=== PATIENT | female | born 1945 | race Caucasian/White ===

== ENCOUNTER 2020-04-19 15:46 | Inpatient (IN) | payer MEDICARE, OTHER ==
[~2020-04-19] VITALS: Ht 167.6 cm; Wt 106.1 kg
[2020-04-19 16:20] LABS: BASOPHILS # (AUTO) 0.1 /CMM (0.0-0.2); BASOPHILS % (AUTO) 0.6 % (0.0-2.0); EOSINOPHILS % (AUTO) 7.7 % (0.0-6.0); HEMATOCRIT 33 % (33-45); HEMOGLOBIN 10.4 g/dL (11.5-14.8); LYMPHOCYTES # (AUTO) 0.4 /CMM (0.8-4.8); LYMPHOCYTES % (AUTO) 4.3 % (20.0-44.0); MEAN CORPUSCULAR HGB CONC 31 g/dl (31.0-36.0); MEAN CORPUSCULAR VOLUME 118 fL (82-100); MONOCYTES # (AUTO) 0.6 /CMM (0.1-1.30); MONOCYTES % (AUTO) 6.1 % (2.0-12.0); NEUTROPHILS # (AUTO) 7.5 /CMM (1.8-8.9); NEUTROPHILS % (AUTO) 81.3 % (43.0-81.0); PLATELET COUNT (AUTO) 225 /CMM (150-450); RED BLOOD CELL COUNT(AUTO) 2.82 MIL/uL (4.0-5.2); WHITE BLOOD COUNT (AUTO) 9.3 K/uL (4.3-11.0)
--- NOTE | 2020-04-19 16:24 | NUR ---
PT [facility] WITH [facility] C/O LOW BP. PT WAS TRIAGED AND TAKEN TO ROOM #5. RT IS AT THE BEDSIDE. PT HAS A TRACH (SHILEY 6) AND IS VENTED. PT WAS PLACED ON A VENT WITH THE FOLLOWING SETTINGS: AC12, TV550, FIO2 40%, PEEP 5. PT IS AA&O BUT IS UNABLE TO TALK. PT NODS TO YES AND NO QUESTIONS. RADHA CATH IN RUC AND GTUBE NOTED. BILATERAL FOOT DROP. DRY SKIN NOTED ON BILATERAL FEET.
[2020-04-19 16:33] LABS: CALCIUM, SERUM 8.8 mg/dL (8.5-10.1); CARBON DIOXIDE 28 mmol/L (21-32); CHLORIDE 103 mmol/L (98-107); CREATININE 2.2 mg/dL (0.6-1.3); GLUCOSE 98 mg/dL (74-106); POTASSIUM 5.9 mmol/L (3.5-5.1); SODIUM SERUM 137 mmol/L (136-145); UREA NITROGEN, BLOOD 48 mg/dL (7-18)
[2020-04-19 16:44] LABS: ALANINE AMINOTRANSFERASE 9 U/L (12-78); ALKALINE PHOSPHATASE 108 U/L (46-116); ASPARTATE AMINOTRANSFERASE 17 U/L (15-37); BILIRUBIN,DIRECT 0.2 mg/dL (0.0-0.2); BILIRUBIN,TOTAL 0.4 mg/dL (0.2-1.0)
--- NOTE | 2020-04-19 16:53 | NUR ---
CALLING [facility] FOR PT INFORMATION. PER ADITI AT [facility], PT CAME TO THEM BY PRIVATE AMBULANCE AND WAS NOT ACCEPTED DUE TO LOW BP. INVESTIGATOR WELFARE: DR VALLADARES WHAT FACILITY IS PT FROM: [facility]
--- NOTE | 2020-04-19 16:57 | NUR ---
CALLING [employer] JENNIFER WRIGHT . SPOKE TO SIGN WRITER LETTERER OR PAINTER: RM DOCUMENTS ARE BEING FAXED OVER.
--- NOTE | 2020-04-19 17:01 | NUR ---
CALLED OFFICE OF DR NESS, BUFFET SERVER PAGED
--- NOTE | 2020-04-19 17:07 | NUR ---
DR TYLER SPOKE TO DR VALLADARES RE: PT. PT TO BE ADMITTED FOR HD.
[2020-04-19 17:15] LABS: NEUTROPHILS % (MANUAL) 76 (42-76)
[2020-04-19 17:16] LABS: EOSINOPHILS % (MANUAL) 10 % (0-4); LYMPHOCYTES % (MANUAL) 9 % (16-48); MONOCYTES % (MANUAL) 5 % (0-11.0)
--- NOTE | 2020-04-19 17:25 | NUR ---
CALLED SECURITY RE: PT'S CAR IS PARKED IN THE HANDICAPPED SPACE IN FRONT OF THE HOSPITAL.
--- NOTE | 2020-04-19 17:51 | NUR ---
CALLING RM RYDER, SHELL MOLD BONDER AT [facility], TO LET HER KNOW THAT THE PT WILL BE STAYING.
--- NOTE | 2020-04-19 17:52 | NUR ---
epic paged, requested for a tele bed
[2020-04-19] MEDS ORDERED: DEXTROSE 50%-WATER 50 ML DISP.SYRIN ONE (18:00)
[2020-04-19] MEDS ORDERED: SODIUM BICARBONATE SYR 50 MEQ/50 ML DISP.SYRIN IV ONE (18:00)
[2020-04-19] MEDS ORDERED: INSULIN REGULAR, HUMAN 100 UNIT/ML 10 ML VIAL ONE (18:00)
[2020-04-19] MEDS ORDERED: INSULIN REGULAR, HUMAN 100 UNIT/ML 10 ML VIAL IV ONE (18:00)
[2020-04-19] MEDS ORDERED: SODIUM BICARBONATE SYR 50 MEQ/50 ML DISP.SYRIN ONE (18:00)
[2020-04-19] MEDS ORDERED: DEXTROSE 50%-WATER 50 ML DISP.SYRIN IV ONE (18:00)
--- NOTE | 2020-04-19 18:07 | NUR ---
JENNIFER STROUD RN, CALLED RE: WHERE PT IS GOING. HE WILL CALL BACK IN 15 MINS FOR AN UPDATE.
--- NOTE | 2020-04-19 18:08 | NUR ---
DR ARCEO IS SPEAKING TO DR TYLER RE: ADMISSION.
--- NOTE | 2020-04-19 18:08 | NUR ---
Anne Marie treadwell in [facility] - 04/19/20 at [email or web address] ARCEO IS ON THE PHONE WITH DR. TYLER FOR ADMITION.
[2020-04-19] MEDS ORDERED: MAGNESIUM HYDROXIDE 30 ML UDC PO PRN (18:30)
[2020-04-19] MEDS ORDERED: ONDANSETRON HCL/PF 4 MG/2 ML VIAL IVP PRN (18:30)
[2020-04-19] MEDS ORDERED: MAG HYDROX/AL HYDROX/SIMETH 30 ML UDC PO PRN (18:30)
[2020-04-19] MEDS ORDERED: ACETAMINOPHEN 325 MG TABLET PO PRN (18:30)
--- NOTE | 2020-04-19 18:30 | NUR ---
CALLING REPORT TO SIMONIZER.
--- NOTE | 2020-04-19 18:32 | NUR ---
WILL CALL BACK IN 5 MINS.
[2020-04-19] MEDS ORDERED: ARGI1POW13 GT (18:34)
[2020-04-19] MEDS ORDERED: LORA-259 PO (18:34)
[2020-04-19] MEDS ORDERED: MULT-447 GT (18:34)
[2020-04-19] MEDS ORDERED: ACET325T53 GT (18:34)
[2020-04-19] MEDS ORDERED: IPRA12.9 IH ×2 (18:34→18:43)
[2020-04-19] MEDS ORDERED: MELA1TAB27 GT (18:34)
[2020-04-19] MEDS ORDERED: NUTR250L62 (18:34)
[2020-04-19] MEDS ORDERED: METO-295 GT (18:34)
[2020-04-19] MEDS ORDERED: DIPH25TA62 GT (18:34)
[2020-04-19] MEDS ORDERED: ASCO-373 GT (18:34)
[2020-04-19] MEDS ORDERED: HYDR-4384 GT ×2 (18:34→18:43)
[2020-04-19] MEDS ORDERED: AMIO200T4 PO (18:34)
[2020-04-19] MEDS ORDERED: HYDROCORTISONE GT (18:34)
[2020-04-19] MEDS ORDERED: CITA10TA9 GT (18:34)
[2020-04-19] MEDS ORDERED: LACT10SO GT (18:34)
[2020-04-19] MEDS ORDERED: [UNRECOGNIZED DRUG - CODE] GT (18:34)
[2020-04-19] MEDS ORDERED: ERYT400S8 GT (18:34)
[2020-04-19] MEDS ORDERED: HYDROCORTISONE TAB PO (18:34)
[2020-04-19] MEDS ORDERED: ROBINUL GT (18:43)
[2020-04-19] MEDS ORDERED: AMIN887L GT (18:43)
[2020-04-19] MEDS ORDERED: GLYC2TAB21 PO (18:43)
[2020-04-19] MEDS ORDERED: BUDE180A IH (18:43)
[2020-04-19] MEDS ORDERED: OMEP20TA5 GT (18:43)
[2020-04-19] MEDS ORDERED: LEVO100T GT (18:43)
[2020-04-19] MEDS ORDERED: ONDA4TAB5 GT (18:43)
[2020-04-19] MEDS ORDERED: LEVA15HF4 IH (18:43)
[2020-04-19] MEDS ORDERED: NAPH1POW3 GT (18:43)
--- NOTE | 2020-04-19 18:44 | NUR ---
CALLING REPORT KB AZAR
--- NOTE | 2020-04-19 18:49 | NUR ---
CALLED RT RE: TRANSPORT TO [facility].
[2020-04-19 20:00] VITALS: BP 92/53
--- NOTE | 2020-04-19 20:17 | NUR ---
MS/TELE/RN RECEIVED PATIENT FROM [facility] AT AROUND [address] [employer]IA [employer]. PATIENT APPEAR SLEEPING, APPEAR COMFORTABLE, ON MECHANICAL VENTILATOR WHICH WAS SET UP BY RT IN THE ROOM, NO SIGNS OF DISTRESS NOTED, PLACED CALL LIGHT WITHIN REACH. DIALYSIS IS IN PROGRESS AT THIS TIME. WILL DO ADMISSION POST DIALYSIS.
--- NOTE | 2020-04-19 22:01 | NUR ---
MS/TELE/RN CALLED AND SPOKE TO DR. ARCEO DIET ORDER AND HAVE THE MEDS RECONCILED. ORDER RECEIVED.
[2020-04-19] MEDS ORDERED: TWOCAL HN 1,000 ML LIQUID GT PRN (22:30)
--- NOTE | 2020-04-19 23:17 | NUR ---
MS/TELE/RN TWOCAL FEEDING FORMULA IS NOT AVAILABLE, OBTAINED AN ORDER FROM DR. ARCEO TO CHANGE IT TO NEPRO @ 55 MLS/HR X 16 HOURS.
[2020-04-19] MEDS: NEPRO 1,000 ML BOTTLE GT PRN (23:40)
[2020-04-20] VITALS: BP 101/46
[2020-04-20] MEDS ORDERED: ACETAMINOPHEN 325 MG TABLET MC PRN
[2020-04-20] MEDS ORDERED: Medication Not On Formulary EA (Melatonin/Pyridoxine HCl (B6) (Melatonin 3 mg Tablet) 1 GT PRN
[2020-04-20] MEDS ORDERED: ONDANSETRON 4 MG TAB.RAPDIS GT PRN (00:30)
[2020-04-20] MEDS: HYDROCODONE/APAP 5/325MG 1 EACH TABLET GT PRN ×3 (01:30→20:31)
[2020-04-20] MEDS: IPRATROPIUM NEB FS 0.5 MG/2.5 ML AMPUL.NEB NEB SCH ×3 (01:30→19:30)
--- NOTE | 2020-04-20 03:25 | NUR ---
RT NOTE Pt rec'd trached on [facility] vent on AC mode. Pt showed no signs of resp distress or sob. Pt awake and alert. Pt sx'd for thick mod amt of pale yellow secretions. Alarms are set and audible. Vent plugged into red outlet. Ambu bag bedside. Will continue to monitor closely. Addendum: 04/20/20 at 0327 by YANELI NUÑEZ RT Amended: Links added.
--- NOTE | 2020-04-20 06:17 | NUR ---
MS/TELE/RN PATIENT IS STILL SLEEPING AT THIS TIME, APPEAR COMFORTABLE, NO SIGNS OF DISTRESS NOTED, MECH VENT WORKING WELL, PATIENT SLEPT GOOD THE WHOLE SHIFT, HOB ELEVATED, ALL NEEDS ATTENDED AT THIS TIME, WILL CONTINUE TO MONITOR.
[2020-04-20 06:37] LABS: BASOPHILS % (AUTO) 0.6 % (0.0-2.0); HEMATOCRIT 33 % (33-45); HEMOGLOBIN 10.4 g/dL (11.5-14.8); LYMPHOCYTES % (AUTO) 14.1 % (20.0-44.0); MEAN CORPUSCULAR HGB CONC 32 g/dl (31.0-36.0); MEAN CORPUSCULAR VOLUME 117 fL (82-100); MONOCYTES # (AUTO) 0.7 /CMM (0.1-1.30); MONOCYTES % (AUTO) 9.5 % (2.0-12.0); NEUTROPHILS # (AUTO) 4.3 /CMM (1.8-8.9); NEUTROPHILS % (AUTO) 61.8 % (43.0-81.0); PLATELET COUNT (AUTO) 189 /CMM (150-450); RED BLOOD CELL COUNT(AUTO) 2.77 MIL/uL (4.0-5.2)
--- NOTE | 2020-04-20 07:30 | NUR ---
TEXTILE CUTTING MACHINE OPERATOR OPENING NOTE Received patient in bed, A&O x 2. Breathing even and non-labored, tolerating vent settings well; Shiley 6, AC 12, TV 550, FiO2 40%, PEEP 5. Patient denies any pain/discomfort at this time. On tele monitor, reading SR with PACs. R/O COVID-19. IV access noted in R hand #20g, patent, intact, and flushing well. G-tube in place, Nepro running @ 55 mLs/hr. Sensation from all peripheral extremities intact. Fall precautions maintained. Will continue current medical management.
[2020-04-20 07:43] LABS: CALCIUM, SERUM 8.6 mg/dL (8.5-10.1); CARBON DIOXIDE 27 mmol/L (21-32); CHLORIDE 102 mmol/L (98-107); GLUCOSE 83 mg/dL (74-106); POTASSIUM 4.5 mmol/L (3.5-5.1); SODIUM SERUM 137 mmol/L (136-145); UREA NITROGEN, BLOOD 40 mg/dL (7-18)
[2020-04-20 08:00] VITALS: BP 113/67
[2020-04-20] MEDS: ASCORBIC ACID 500 MG TABLET GT SCH (08:17)
[2020-04-20] MEDS: LACTULOSE 10 G/15 ML UDC (PYXIS) GT SCH ×2 (08:17→16:16)
[2020-04-20] MEDS: GLYCOPYRROLATE 1 MG TABLET GT SCH ×3 (08:18→16:16)
[2020-04-20] MEDS: PANTOPRAZOLE 40 MG/PACK PACK GT SCH (08:18)
[2020-04-20] MEDS: CITALOPRAM HYDROBROMIDE 10 MG TABLET GT SCH (08:18)
[2020-04-20] MEDS: MULTIVITAMINS,THERAGRAN 1 UDTAB TABLET GT SCH (08:18)
[2020-04-20] MEDS: METOCLOPRAMIDE HCL 10 MG TABLET GT SCH ×3 (08:18→16:17)
[2020-04-20] MEDS: AMIODARONE HCL 200 MG TABLET PO SCH ×2 (08:19→16:40)
[2020-04-20] MEDS: PROSOURCE / PROSTAT (PYXIS) 30 ML UDC GT SCH ×3 (08:20→16:45)
[2020-04-20] MEDS: CALCIUM POLYCARBOPHIL 625 MG TABLET GT SCH ×2 (08:22→16:42)
[2020-04-20] MEDS: Z GUARD REMEDY 2 OZ OINT TP PRN (08:23)
[2020-04-20] MEDS: LEVOTHYROXINE SODIUM 100 MCG TABLET GT SCH (08:24)
[2020-04-20] MEDS: HYDROCORTISONE 5 MG TABLET GT SCH ×2 (08:49→17:08)
--- NOTE | 2020-04-20 08:59 | NUR ---
RT NOTE PT RCVD TRACH'D ON MECHANICAL VENT WITH CHARTED SETTINGS. SX DONE. PT TRACH IS PATENT AND SECURE. VENT PLUGGED INTO RED OUTLET. VENT ALARMS ARE ON AND AUDIBLE. AMBU BAG AT BED SIDE. NO SOB NOTED. Addendum: 04/20/20 at 0859 by ALAN HOWELL RT Amended: Links added.
[2020-04-20] MEDS ORDERED: Medication Not On Formulary EA (Arginine/Ascorbate Sod/Vite AC (Arginaid Powder) 1 EACH) GT SCH (09:00)
[2020-04-20] MEDS ORDERED: Medication Not On Formulary EA (Levalbuterol Tartrate (Xopenex Hfa) 2 PUFF) IH SCH (09:00)
--- NOTE | 2020-04-20 09:46 | NUR ---
WOUND CARE CONSULT: REVIEWED CHART, NURSING DOCUMETATION AND PHOTOS WHICH SHOW SACRAL AND LEFT BUTTOCK WOUNDS, AT LEAST PARTIAL THICKNESS WELL RASHES TO BREASTFOLDS, ABDOMINAL/GROIN FOLDS AND PERINEUM, PRESENT ON ADMISSION. RECOMMENDATIONS MADE FOR SKIN PROTECTION AND WOUND CARE. DISCUSSED WITH NURSING STAFF. FIRST STEP LOW AIRLOSS MATTRESS ON ORDER. WILL SEE PRN. IN AGREEMENT WITH PLAN OF CARE. CURRENT [facility]AS SCORE IS 10.
[2020-04-20] MEDS ORDERED: IPRATROPIUM BROMIDE 14 GM INHALER (or 12.9 GM) IH SCH ×2 (12:00→17:11)
[2020-04-20] MEDS: ERYTHROMYCIN ETHYLSUCCINATE 200 MG/5 ML SUSPENSION GT SCH ×2 (13:09→17:07)
[2020-04-20] MEDS: HYDROGEL DRESSING 90 GM TUBE TP SCH (13:13)
[2020-04-20] MEDS: NEUTRA PHOS 1 POWD.PACKET GT SCH ×2 (13:37→16:16)
[2020-04-20] MEDS: LORAZEPAM 1 MG TABLET PO PRN ×2 (13:47→23:06)
[2020-04-20 16:00] VITALS: BP 130/66
[2020-04-20] MEDS: CLOTRIMAZOLE 1% 15 GM TUBE TP SCH (16:41)
--- NOTE | 2020-04-20 18:12 | NUR ---
TELE/RN CLOSING NOTES Patient in bed, A&O x3, VSS, remains afebrile. Tolerating vent settings well, saturating at 100%. Breathing even and non-labored. On tele monitor, reading SR with 1st degree AV block, HR 67. Patient denies any pain/discomfort at this time, last norco given at 1126. IV access noted on the right hand #20g, patent, intact, and flushing well. G-tube in place, patent and intact. Feeding was turned off at 1600, as ordered. Sensation from all peripheral extremities intact. Fall precautions maintained. Will endorse to shift leader nurse.
[2020-04-20] MEDS ORDERED: BUDESONIDE RESPULE INH 0.5 MG/2 ML AMPUL.NEB IH SCH (19:30)
[2020-04-20] MEDS: ALBUTEROL FS 2.5 MG/3 ML VIAL.NEB NEB SCH (19:30)
--- NOTE | 2020-04-20 19:30 | NUR ---
MS/TELE/RN PATIENT AWAKE, ALERT, ORIENTED, COMFORTABLE, NO SIGNS OF DISTRESS NOTED, ON [facility] VENTILATOR, CALL LIGHT IN REACH. WILL MONITOR.
[2020-04-20 20:28] VITALS: BP 119/61
--- NOTE | 2020-04-20 21:09 | NUR ---
RT NOTE PT RECEIVED TRACHED ON MECHANICAL VENTILATION. AWAKE/ALERT. CUFF CHECKED VIA SOLAR PANEL TECHNICIAN. NEB TX NOT GIVEN DUE TO PENDING LAB RESULTS. NO DISTRESS NOTED AT THIS TIME. INNER CANNULA CHANGED. NURSE, NED, AWARE. WILL CONTINUE TO MONITOR T/O SHIFT. Addendum: 04/20/20 at 2110 by CARMELO BOBO RT Amended: Links added.
--- NOTE | 2020-04-20 23:14 | NUR ---
MS/TELE/RN PATIENT IS VERY ANXIOUS, ATIVAN WAS GIVEN GT ORDERED. WILL MONITOR.
[2020-04-21] VITALS: BP 111/56
[2020-04-21] MEDS: NEPRO 1,000 ML BOTTLE GT PRN (01:09)
[2020-04-21] MEDS: IPRATROPIUM NEB FS 0.5 MG/2.5 ML AMPUL.NEB NEB SCH ×4 (01:15→19:30)
[2020-04-21] MEDS: ALBUTEROL FS 2.5 MG/3 ML VIAL.NEB NEB SCH ×4 (01:15→19:30)
--- NOTE | 2020-04-21 01:15 | NUR ---
RT tx not given due to pending lab results,. notified monserrat diaz
[2020-04-21] MEDS: HYDROCODONE/APAP 5/325MG 1 EACH TABLET GT PRN ×3 (01:48→22:46)
[2020-04-21 04:00] VITALS: BP 109/60
[2020-04-21] MEDS: LORAZEPAM 1 MG TABLET PO PRN ×3 (04:28→23:30)
--- NOTE | 2020-04-21 04:43 | NUR ---
MS/TELE/RN PATIENT IS ANXIOUS, ATIVAN WAS GIVEN GT PER PATIENT'S REQUEST. WILL MONITOR.
--- NOTE | 2020-04-21 06:18 | NUR ---
MS/TELE/RN DR. ARCEO WAS NOTIFIED RE: BLOOD CULTURE RESULT. NO ORDERS RECEIVED.
[2020-04-21] MEDS: LEVOTHYROXINE SODIUM 100 MCG TABLET GT SCH (07:08)
--- NOTE | 2020-04-21 07:10 | NUR ---
Rn opening note: Received patient in bed. Asleep and arousable by sound. Alert, oriented x4. Able to make needs known. No pain reported and is currently comfortable. On mechanical ventilation on current settings and tolerating well, saturating @100%. No SOB and not in respiratory distress. Tele monitor showing sinus rhythm @ 61. Isolation precautions in place to R/O covid. Gtube patent and in place with current feeding of Nepro @ 55mls/hr x18hr being tolerated well. Iv site clean, dry, patent and intact. HD site access clean, dry and secure. Received report about patient concerns to be address by provider and will report it on shift. call light in reach. Bed locked, low and at semi-moody's position. Side rails up x3. Safety ensured and observed. Will continue to monitor.
--- NOTE | 2020-04-21 07:18 | NUR ---
MS/TELE/RN PATIENT IS AWAKE, COMFORTABLE, NO DISTRESS NOTED, HOB ELEVATED, GT FEEDING INFUSING, ALL NEEDS ATTENDED AT THIS TIME, WILL CONTINUE TO MONITOR.
[2020-04-21 08:00] VITALS: BP 141/66
--- NOTE | 2020-04-21 08:15 | NUR ---
RN note: Informed Todd Conner DNP about gabriela's request to see a provider, request to be able to get clear liquids as she stated that she was able to get it when she was staying in the care home and to convert current Albuterol and Ipatropium NEB to INH. Todd acknowledged information and will see patient when he makes his morning rounds.
[2020-04-21] MEDS: ASCORBIC ACID 500 MG TABLET GT SCH (08:38)
[2020-04-21] MEDS: MULTIVITAMINS,THERAGRAN 1 UDTAB TABLET GT SCH (08:38)
[2020-04-21] MEDS: GLYCOPYRROLATE 1 MG TABLET GT SCH ×3 (08:38→16:38)
[2020-04-21] MEDS: LACTULOSE 10 G/15 ML UDC (PYXIS) GT SCH ×2 (08:39→16:35)
[2020-04-21] MEDS: CITALOPRAM HYDROBROMIDE 10 MG TABLET GT SCH (08:39)
[2020-04-21] MEDS: METOCLOPRAMIDE HCL 10 MG TABLET GT SCH ×3 (08:39→16:37)
[2020-04-21] MEDS: AMIODARONE HCL 200 MG TABLET PO SCH ×2 (08:39→16:35)
[2020-04-21] MEDS: PANTOPRAZOLE 40 MG/PACK PACK GT SCH (08:39)
[2020-04-21] MEDS: NEUTRA PHOS 1 POWD.PACKET GT SCH ×3 (08:39→16:35)
[2020-04-21] MEDS: PROSOURCE / PROSTAT (PYXIS) 30 ML UDC GT SCH ×3 (08:40→16:39)
[2020-04-21] MEDS: HYDROCORTISONE 5 MG TABLET GT SCH ×2 (08:50→17:38)
[2020-04-21] MEDS: CALCIUM POLYCARBOPHIL 625 MG TABLET GT SCH ×2 (08:50→16:37)
[2020-04-21] MEDS: CLOTRIMAZOLE 1% 15 GM TUBE TP SCH ×2 (08:51→16:39)
[2020-04-21] MEDS: ERYTHROMYCIN ETHYLSUCCINATE 200 MG/5 ML SUSPENSION GT SCH ×3 (08:51→16:37)
[2020-04-21] MEDS: HYDROGEL DRESSING 90 GM TUBE TP SCH (09:00)
[2020-04-21 11:00] LABS: BASOPHILS % (AUTO) 0.5 % (0.0-2.0); EOSINOPHILS % (AUTO) 15.3 % (0.0-6.0); HEMATOCRIT 37 % (33-45); HEMOGLOBIN 11.3 g/dL (11.5-14.8); LYMPHOCYTES # (AUTO) 0.8 /CMM (0.8-4.8); LYMPHOCYTES % (AUTO) 10.3 % (20.0-44.0); MEAN CORPUSCULAR HGB CONC 31 g/dl (31.0-36.0); MEAN CORPUSCULAR VOLUME 119 fL (82-100); MONOCYTES # (AUTO) 0.6 /CMM (0.1-1.30); MONOCYTES % (AUTO) 7.8 % (2.0-12.0); NEUTROPHILS # (AUTO) 4.9 /CMM (1.8-8.9); NEUTROPHILS % (AUTO) 66.1 % (43.0-81.0); PLATELET COUNT (AUTO) 201 /CMM (150-450); RED BLOOD CELL COUNT(AUTO) 3.07 MIL/uL (4.0-5.2); WHITE BLOOD COUNT (AUTO) 7.4 K/uL (4.3-11.0)
[2020-04-21 11:29] LABS: CARBON DIOXIDE 30 mmol/L (21-32); CHLORIDE 104 mmol/L (98-107); CREATININE 2.2 mg/dL (0.6-1.3); GLUCOSE 101 mg/dL (74-106); POTASSIUM 4.1 mmol/L (3.5-5.1); SODIUM SERUM 141 mmol/L (136-145); UREA NITROGEN, BLOOD 39 mg/dL (7-18)
[2020-04-21 12:00] VITALS: BP 108/40
[2020-04-21] MEDS ORDERED: FEE PK DOSING 1 MIN EA MC ONE (12:37)
[2020-04-21] MEDS ORDERED: VANCOMYCIN 1 GM in IV D5W 250 ML IV ONE (13:00)
[2020-04-21 15:37] VITALS: BP 116/58
--- NOTE | 2020-04-21 19:13 | NUR ---
RN OPENING NOTE RECEIVED PT IN BED IN SEMI- FOWLERS POSITION. PT A/O X 4, ON TELE MONITOR SR. PT ON RA SATURATING AT 99%. PT IN NO DISTRESS. PT TOLERATING CURRENT VENT SETTINGS. RT CHEST PERMA CATH PATENT AND INTACT. IV TO RT HAND PATENT AND INTACT FLUSHING WELL. CALL LIGHT WITHIN REACH, SIDE RAILS UP X 2 WILL CONT. TO MONITOR PT .
--- NOTE | 2020-04-21 19:20 | NUR ---
RN closing note: No acute changes noted on shift. Patient was seen by Todd Conner earlier.Still in bed. awake and oriented x4. Able to make needs known. No pain reported and is currently comfortable. On mechanical ventilation on current settings and tolerating well, saturating @100%. No SOB and not in respiratory distress. Tele monitor showing sinus rhythm . Isolation precautions in place to R/O covid. Gtube patent and in place Iv site clean, dry, patent and intact. HD site access clean, dry and secure. Call light in reach. Bed locked, low and at semi-moody's position. Side rails up x3. Safety ensured and observed. Due medications given. Treatment done as ordered. Endorsed to oncoming shift for EVELYN.
[2020-04-21 20:00] VITALS: BP 125/65
--- NOTE | 2020-04-21 20:51 | NUR ---
RN NOTE LAB CALLED IN REGARDS TO BLOOD CX ORDER. CALLED Michi DALAL NP TO RETURN CALL.
[2020-04-21] MEDS: MUPIROCIN OINT 2% 22 GM TUBE SCH (21:31)
[2020-04-22] VITALS (7 sets, daily range): BP systolic 111–132; BP diastolic 59–76
[2020-04-22] MEDS: ALBUTEROL FS 2.5 MG/3 ML VIAL.NEB NEB SCH ×4 (01:13→19:22)
[2020-04-22] MEDS: IPRATROPIUM NEB FS 0.5 MG/2.5 ML AMPUL.NEB NEB SCH ×4 (01:13→19:22)
[2020-04-22] MEDS: NEPRO 1,000 ML BOTTLE GT PRN (01:20)
--- NOTE | 2020-04-22 06:46 | NUR ---
RN CLOSING NOTE PT AWAKE IN BED IN SEMI- FOWLERS POSITION. PT A/O X 4, ON TELE MONITOR CURRENTLY SR. PT ON RA SATURATING AT 99%. PT IN NO DISTRESS DURING SHIFT. TOLERATING CURRENT VENT SETTINGS. RT CHEST PERMA CATH PATENT AND INTACT. IV TO RT HAND PATENT AND INTACT FLUSHING WELL. NEPRO GT FEEDING RUNNING AT 55 ML/HR. CALL LIGHT WITHIN REACH, SIDE RAILS UP X 2 . ENDORSED TO AM RN FOR EVELYN
--- NOTE | 2020-04-22 07:20 | NUR ---
RT BREATHING TX NOT GIVEN DUE TO PENDING COVID-19 RESULTS
[2020-04-22] MEDS: CITALOPRAM HYDROBROMIDE 10 MG TABLET GT SCH (09:38)
[2020-04-22] MEDS: LACTULOSE 10 G/15 ML UDC (PYXIS) GT SCH ×2 (09:39→17:26)
[2020-04-22] MEDS: LEVOTHYROXINE SODIUM 100 MCG TABLET GT SCH (09:40)
[2020-04-22] MEDS: PANTOPRAZOLE 40 MG/PACK PACK GT SCH (09:42)
[2020-04-22] MEDS: NEUTRA PHOS 1 POWD.PACKET GT SCH ×3 (09:42→17:30)
[2020-04-22] MEDS: MULTIVITAMINS,THERAGRAN 1 UDTAB TABLET GT SCH (09:42)
[2020-04-22] MEDS: ASCORBIC ACID 500 MG TABLET GT SCH (09:43)
[2020-04-22] MEDS: AMIODARONE HCL 200 MG TABLET PO SCH ×2 (09:44→17:31)
[2020-04-22] MEDS: PROSOURCE / PROSTAT (PYXIS) 30 ML UDC GT SCH ×3 (09:45→17:30)
[2020-04-22] MEDS: GLYCOPYRROLATE 1 MG TABLET GT SCH ×3 (09:45→17:29)
[2020-04-22] MEDS: METOCLOPRAMIDE HCL 10 MG TABLET GT SCH ×3 (09:46→17:30)
[2020-04-22] MEDS: ERYTHROMYCIN ETHYLSUCCINATE 200 MG/5 ML SUSPENSION GT SCH ×3 (09:57→17:27)
[2020-04-22] MEDS: CALCIUM POLYCARBOPHIL 625 MG TABLET GT SCH ×2 (10:02→17:43)
[2020-04-22] MEDS: HYDROCORTISONE 5 MG TABLET GT SCH ×2 (10:19→17:34)
[2020-04-22] MEDS: HYDROGEL DRESSING 90 GM TUBE TP SCH (10:20)
[2020-04-22] MEDS: MUPIROCIN OINT 2% 22 GM TUBE SCH ×2 (10:20→21:01)
[2020-04-22] MEDS: CLOTRIMAZOLE 1% 15 GM TUBE TP SCH ×2 (10:20→17:33)
[2020-04-22] MEDS: HYDROCODONE/APAP 5/325MG 1 EACH TABLET GT PRN ×2 (10:56→18:23)
[2020-04-22] MEDS ORDERED: LIDOCAINE 1%-EPI 1:100,000 20 ML VIAL TP ONE (11:30)
[2020-04-22] MEDS: LORAZEPAM 1 MG TABLET PO PRN ×2 (12:20→18:23)
[2020-04-22] MEDS ORDERED: VANCOMYCIN 500 MG in IV D5W 100 ML IV PRN (12:30)
--- NOTE | 2020-04-22 13:00 | NUR ---
OUTREACH SPECIALIST NOTES PATENT COMPLETED HD TOLERATED WELL. WILL CONTINUE TO MONITOR.
--- NOTE | 2020-04-22 13:38 | NUR ---
BREATHING TX NOT GIVEN DUE TO PENDING COVID-19 RESULTS
[2020-04-22] MEDS ORDERED: VANCOMYCIN 1 GM in IV D5W 250 ML IV ONE (14:00)
--- NOTE | 2020-04-22 19:30 | NUR ---
TELE/RN OPENING NOTES: RECEIVED PT. STABLE. A/OX4. VERBALLY RESPONSIVE AND ABLE TO MAKE NEEDS KNOWN. NO SOB NOTED. DENIES PAIN AT THIS TIME. ON MECHANICAL VENT. TOLERATING CURRENT SETTINGS NISA #6. AC 12; TV 550; FIO2 40%; PEEP 5; ON TELE MONITOR WITH READING OF SR WITH HR ON THE 60'S. S/P RIGHT CHEST PERMACATH REMOVAL BY DR. WANG. DRESSING CDI. GTUBE NOTED. IV SITE ON THE LEFT WRIST. #22G. INTACT AND PATENT. SL. SAFETY MEASURES ON, BED IN LOW, LOCKED POSITION WITH SR UPX2. WILL CONTINUE TO MONITOR ACCORDINGLY.
--- NOTE | 2020-04-22 19:39 | NUR ---
MS RN NOTES PATIENT S/P PERACAHT REMOVAL BY DR. WANG. PATIENT TOLERATED PROCEDURE WELL. ENDORSE CARE TO PM SHIFT. NO ACUTE CHANGED NOTED DURING SHIFT.
--- NOTE | 2020-04-22 19:40 | NUR ---
TELE/RN NOTES: PERMACATH TIP SUBMITTED TO LAB FOR CULTURE.
--- NOTE | 2020-04-22 20:23 | NUR ---
MS RN NOTES PATIENT IN BED RESTING NO SOB OR ACUTE DISTRESS NOTED. ALL DUE MEDICATIONS ADMINISTERED. ALL NEEDS MET. NO ACUTE CHANGES NOTED. ENDORSED CARE TO PM SHIFT.
[2020-04-23] VITALS: BP 126/60
--- NOTE | 2020-04-23 01:10 | NUR ---
TELE/RN NOTES: PATIENT IS UPSET, YELLING INAPPROPRIATE WORDS, VERY AGITATED. PATIENT WANTS TO DRINK CRANBERRY JUICE. EXPLAINED TO PT THAT SHE DOES NOT HAVE AN ORDER FOR HER TO BE ALLOWED TO DRINK ORALLY. EDUCATED PT ON ASPIRATION RISKS AND PATIENT SAFETY. HOWEVER, PATIENT EMPHASIZED THAT SHE HAS BEEN RECEIVING JUICE FOR THE PAST 2 DAYS. PATIENT WANTS TO CONTACT THE DOCTOR DUE TO THE MISCOMMUNICATION. INFORMED CHARGE NURSE ELANA ABOUT THE SITUATION. WILL CONTINUE TO MONITOR.
--- NOTE | 2020-04-23 01:12 | NUR ---
TELE/RN NOTES: CLARIFIED WITH PREVIOUS ENGINE DESIGNER RN; ARIN. PER RN "IT WAS ENDORSED FROM THE PREVIOUS SHIFT THAT PT. IS ABLE TO DRINK LIQUIDS, SHE HAS BEEN FOR THE PAST DAYS." CHARGE NURSE ELANA AWARE. LOOKED OVER PROGRESS NOTES, AND DOCTOR NOTES, THERE IS NO ORDER FOR ORAL LIQUIDS. PT AT RISK FOR ASPIRATION.
--- NOTE | 2020-04-23 01:14 | NUR ---
TELE/RN NOTES: SPOKE WITH DR. ARCEO. EXPLAINED PT.'S SITUATION AND CONCERN. SCHEDULED A SWALLOW EVELYN FOR TOMORROW MORNING. PT. INFORMED AND WILL CONTINUE TO MONITOR.
--- NOTE | 2020-04-23 01:20 | NUR ---
TELE/RN NOTES: PT. IS VERY UPSET AND NOT LISTENING. CALLED THE CHARGE NURSE TO SPEAK WITH THE PATIENT. EXPLAINED THAT THIS IS FOR HER SAFETY BUT PT. IS STILL UPSET. WILL CONTINUE TO MONITOR.
[2020-04-23] MEDS: IPRATROPIUM NEB FS 0.5 MG/2.5 ML AMPUL.NEB NEB SCH ×4 (01:24→19:25)
[2020-04-23] MEDS: ALBUTEROL FS 2.5 MG/3 ML VIAL.NEB NEB SCH ×4 (01:24→19:25)
--- NOTE | 2020-04-23 01:30 | NUR ---
TELE/RN NOTES: ATIVAN 1MG ADMINISTERED VIA GT. TOLERATED WELL. VSS STABLE. WILL CONTINUE TO MONITOR ACCORDINGLY.
[2020-04-23] MEDS: LORAZEPAM 1 MG TABLET PO PRN ×3 (01:35→20:12)
[2020-04-23] MEDS: HYDROCODONE/APAP 5/325MG 1 EACH TABLET GT PRN ×4 (02:38→23:10)
--- NOTE | 2020-04-23 02:38 | NUR ---
TELE/RN NOTES: PT C/O PAIN 6, GENERALIZED. VS CHECKED. VS WNL. ADMINISTERED NORCO 5/325MG VIA GT. TOLERATED WELL. WILL CONTINUE OT MONITOR ACCORDINGLY.
[2020-04-23 04:00] VITALS: BP 151/73
[2020-04-23] MEDS: diphenhydrAMINE HCL ELIX 25 MG/10 ML UDC GT PRN (04:17)
--- NOTE | 2020-04-23 04:21 | NUR ---
TELE/RN NOTES: PT COMPLAINED OF ITCHING. REQUESTED FOR BENDADRYL. VSS. ADMINSITERED 25MG BENADRYL VIA GT. TOLERATED WELL. WILL CONTINUE TO MONITOR.
[2020-04-23] MEDS: NEPRO 1,000 ML BOTTLE GT PRN (05:43)
[2020-04-23] MEDS ORDERED: VANCOMYCIN 500 MG in IV D5W 100 ML IV PRN (06:00)
--- NOTE | 2020-04-23 06:17 | NUR ---
RT PATIENT WAS RECEIVED TRACHED ON MECHANICAL VENT WITH CHARTED SETTINGS. PATIENT STABLE THROUGHOUT THE SHIFT , NO SOB NOTED.ALARMS ARE SET AND AUDIBLE, VENT PLUGGED INTO RED OUTLET. TRACH TUBE PATENT AND SECURED.RAJINDER AT [facility],WILL CONTINUE TO MONITOR. Addendum: 04/23/20 at 0619 by KANU TYLER RT Amended: Links added.
[2020-04-23 06:35] LABS: CALCIUM, SERUM 8.6 mg/dL (8.5-10.1); CARBON DIOXIDE 29 mmol/L (21-32); CHLORIDE 100 mmol/L (98-107); CREATININE 2.3 mg/dL (0.6-1.3); GLUCOSE 108 mg/dL (74-106); PHOSPHORUS 4.6 mg/dL (2.5-4.9); SODIUM SERUM 137 mmol/L (136-145); UREA NITROGEN, BLOOD 44 mg/dL (7-18)
[2020-04-23 06:45] LABS: BASOPHILS % (AUTO) 0.3 % (0.0-2.0); EOSINOPHILS % (AUTO) 10.5 % (0.0-6.0); HEMATOCRIT 36 % (33-45); HEMOGLOBIN 11.2 g/dL (11.5-14.8); LYMPHOCYTES # (AUTO) 0.8 /CMM (0.8-4.8); LYMPHOCYTES % (AUTO) 10.4 % (20.0-44.0); MEAN CORPUSCULAR HGB CONC 32 g/dl (31.0-36.0); MEAN CORPUSCULAR VOLUME 117 fL (82-100); MONOCYTES # (AUTO) 0.6 /CMM (0.1-1.30); NEUTROPHILS # (AUTO) 5.5 /CMM (1.8-8.9); NEUTROPHILS % (AUTO) 70.8 % (43.0-81.0); PLATELET COUNT (AUTO) 186 /CMM (150-450); RED BLOOD CELL COUNT(AUTO) 3.03 MIL/uL (4.0-5.2); WHITE BLOOD COUNT (AUTO) 7.8 K/uL (4.3-11.0)
--- NOTE | 2020-04-23 06:47 | NUR ---
TELE/RN CLOSING NOTES: PT. IS STABLE. A/OX4. VERBALLY RESPONSIVE AND ABLE TO MAKE NEEDS KNOWN. NO SOB NOTED. NO PAIN AT THIS TIME. ON MECHANICAL VENT. TOLERATING CURRENT SETTINGS NISA #6. AC 12; TV 550; FIO2 40%; PEEP 5; ON TELE MONITOR WITH READING OF SR WITH 1ST DEGREE AV BLOCK. S/P RIGHT CHEST PERMACATH REMOVAL BY DR. WANG YESTERDAY. DRESSING REINFORCED. NO S/S OF ACTIVE BLEEDING. GTUBE NOTED, NO RESIDUAL, NEPRO RUNNING AT 55MLS/HR. IV SITE ON THE LEFT WRIST. #22G. INTACT AND PATENT. SL. SAFETY MEASURES ON, BED IN LOW, LOCKED POSITION WITH SR UPX2. WILL ENDORSE TO DAY SHIFT RN FOR EVELYN.
[2020-04-23 08:00] VITALS: BP 110/55
--- NOTE | 2020-04-23 08:00 | NUR ---
NUT GRINDER OPENING NOTES RECEIVED PT IN BED. AWKE ALERT AND ORIENTED X4. VERBALLY RESPONSIVE AND ABLE TO MAKE NEEDS KNOWN. NO CARDIAC OR RESPIRATORY DISTRESS NOTED. NO SOB NOTED. PT IS VENT DEPENDENT. NO COMPLAINTS OF PAIN OR DISCOMFORT AT THIS TIME. VENT SETTINGS FOLLOWS: DANNYLEY #6. AC 12; TV 550; FIO2 40%; PEEP 5; ON TELE MONITOR WITH READING OF SR WITH 1ST DEGREE AV BLOCK. PER ENDORSEMENT FROM FABRICATION OPERATOR S/P RIGHT CHEST PERMACATH REMOVAL BY DR. WANG 2 DAYS AGO. NO S/S OF ACTIVE BLEEDING NOTED. DRESSING CLEAN AND INTACT. GTUBE NOTED, INTACT ND PATENT ANF FLUSHING WELL. NO GASTRIC RESIDUAL NOTED , GT FEEDING NEPHRO RUNNING AT 55MLS/HR X 16HOURS. GTUBE TO BE TURNED OFF AT 1600 TODAY. IV ACCESS NOTED ON THE LEFT WRIST. #22G. INTACT AND PATENT. AND FLUSHING WELL. . SAFETY MEASURES AND PRECUATIONS IN PLACE. BED LOCKED AND IN LOW POSITION WITH SR UPX2. BED ALARM ON. CALL LIGHT WITHIN REACH. WILL CONT TO MONITOR.
[2020-04-23] MEDS: LEVOTHYROXINE SODIUM 100 MCG TABLET GT SCH (08:19)
[2020-04-23] MEDS: LACTULOSE 10 G/15 ML UDC (PYXIS) GT SCH ×2 (08:25→17:17)
[2020-04-23] MEDS: PANTOPRAZOLE 40 MG/PACK PACK GT SCH (08:25)
[2020-04-23] MEDS: METOCLOPRAMIDE HCL 10 MG TABLET GT SCH ×3 (08:26→17:18)
[2020-04-23] MEDS: ASCORBIC ACID 500 MG TABLET GT SCH (08:26)
[2020-04-23] MEDS: MULTIVITAMINS,THERAGRAN 1 UDTAB TABLET GT SCH (08:26)
[2020-04-23] MEDS: CITALOPRAM HYDROBROMIDE 10 MG TABLET GT SCH (08:26)
[2020-04-23] MEDS: GLYCOPYRROLATE 1 MG TABLET GT SCH ×3 (08:26→17:17)
[2020-04-23] MEDS: NEUTRA PHOS 1 POWD.PACKET GT SCH (08:26)
[2020-04-23] MEDS: PROSOURCE / PROSTAT (PYXIS) 30 ML UDC GT SCH ×3 (08:27→17:19)
[2020-04-23] MEDS: AMIODARONE HCL 200 MG TABLET PO SCH ×2 (08:27→17:00)
[2020-04-23] MEDS: HYDROCORTISONE 5 MG TABLET GT SCH ×2 (08:28→17:18)
[2020-04-23] MEDS: MUPIROCIN OINT 2% 22 GM TUBE SCH ×2 (08:28→21:11)
[2020-04-23] MEDS: CALCIUM POLYCARBOPHIL 625 MG TABLET GT SCH ×2 (08:28→17:18)
[2020-04-23] MEDS: ERYTHROMYCIN ETHYLSUCCINATE 200 MG/5 ML SUSPENSION GT SCH ×3 (08:28→17:17)
[2020-04-23] MEDS: CLOTRIMAZOLE 1% 15 GM TUBE TP SCH ×2 (08:29→17:19)
[2020-04-23] MEDS: HYDROGEL DRESSING 90 GM TUBE TP SCH (08:29)
--- NOTE | 2020-04-23 11:00 | NUR ---
DIALYSIS ACCESS SITE ASKED DR BANUELOS AND ZEYNEP KANG NP REGARDING POSSIBLE RE-INSERTION OF DIALYSIS CATH SITE, ACCORDING TO THEM, PT IS ON LINE VACATION FOR NOW.
[2020-04-23 16:00] VITALS: BP 103/54
--- NOTE | 2020-04-23 19:00 | NUR ---
SUPERVISOR ELECTRONICS PROCESSING CLOSING NOTES PT IN BED. AWKE ALERT AND ORIENTED X4. VERBALLY RESPONSIVE AND ABLE TO MAKE NEEDS KNOWN. NO CARDIAC OR RESPIRATORY DISTRESS NOTED. NO SOB NOTED. PT IS VENT DEPENDENT. NO COMPLAINTS OF PAIN OR DISCOMFORT AT THIS TIME. PTS PAIN MANAGED THROUGHOUT THE SHIFT WITH NON PHARMACOLOGICAL INTERVENTIONS AND WITH PRN NORCO. VENT SETTINGS FOLLOWS: NISA #6. AC 12; TV 550; FIO2 40%; PEEP 5; ON TELE MONITOR WITH READING OF SR WITH 1ST DEGREE AV BLOCK. S/P RIGHT CHEST PERMACATH REMOVAL BY DR. WANG 2 DAYS AGO. NO S/S OF ACTIVE BLEEDING NOTED. DRESSING CLEAN AND INTACT. GTUBE NOTED, INTACT ND PATENT ANF FLUSHING WELL. NO GASTRIC RESIDUAL NOTED , GT FEEDING NEPHRO RUNNING AT 55MLS/HR X 16HOURS. GTUBE TO BE TURNED OFF AT 1600 TODAY. IV ACCESS NOTED ON THE LEFT WRIST. #22G. INTACT AND PATENT. AND FLUSHING WELL. . SAFETY MEASURES AND PRECUATIONS IN PLACE. BED LOCKED AND IN LOW POSITION WITH SR UPX2. BED ALARM ON. CALL LIGHT WITHIN REACH. WILL ENDORSE TO NEXT SHIFT
--- NOTE | 2020-04-23 19:30 | NUR ---
AWS SOFTWARE DEVELOPMENT ENGINEER NOTES RECEIVED ON BED A/O X4,ON TRACH TO VENT,SETTINGS TOLERATED WELL, O2 SAT AT 100%.ABLE TO TALK AND VERBALIZED NEEDS.SALINE LOCK LEFT WRIST INTACT AND PATENT.SACRAL WOUND WITH DRESSING INTACT AND DRY.KCI MATTRESS IN USED FOR WOUND MANAGEMENT.ISOLATION PRECAUTION FOR MRSA NARES.WITH GT FEEDING OFF AT THIS TIME,ON AT 12MIDNIGHT.CALL LIGHT IN REACH,NEEDS ANTICIPATED.
[2020-04-23 20:00] VITALS: BP 116/69
--- NOTE | 2020-04-23 20:12 | NUR ---
APPLICATION INTEGRATION ENGINEER NOTES FEELING ANXIOUS,MEDICATED WITH ATIVAN 1MG/GT PER PATIENT REQUEST WITH ORDER.BP 116/69,PULSE 66
[2020-04-23 20:27] VITALS: BP 116/69
--- NOTE | 2020-04-23 23:10 | NUR ---
FERRY BOAT CAPTAIN NOTES SR WITH FIRST DEGREE AV BLOCK RATE-80.C/O GENERALIZED PAIN,MEDICATED WITH NORCO 5/325MG,1TAB GIVEN/GT.REPOSITION TO COMFORT
[2020-04-24] VITALS (52 sets, daily range): BP systolic 64–134; BP diastolic 24–85
[2020-04-24] MEDS: diphenhydrAMINE HCL ELIX 25 MG/10 ML UDC GT PRN (00:07)
--- NOTE | 2020-04-24 00:07 | NUR ---
PHYS ASST NOTES C/O ITCHINESS,BENADRYL 25MG/GT GIVEN ORDERED AND PATIENT REQUEST
[2020-04-24] MEDS: IPRATROPIUM NEB FS 0.5 MG/2.5 ML AMPUL.NEB NEB SCH ×4 (01:40→19:55)
[2020-04-24] MEDS: ALBUTEROL FS 2.5 MG/3 ML VIAL.NEB NEB SCH ×4 (01:40→19:55)
--- NOTE | 2020-04-24 05:00 | NUR ---
RF MICROWAVE ENGINEER NOTES MORNING CARE RENDERED BY [place],TOLERATED WELL.
[2020-04-24] MEDS: HYDROCODONE/APAP 5/325MG 1 EACH TABLET GT PRN ×2 (05:31→12:21)
--- NOTE | 2020-04-24 05:31 | NUR ---
POSTDOCTORAL SCIENTIST NOTES PAIN MANAGEMENT C/O GENRALIZED PAIN,MEDICATED WITH NORCO 5/325MG,1 TAB GIVEN VIA GT ORDERED.
--- NOTE | 2020-04-24 05:31 | NUR ---
HAIRSPRING CUTTER NOTES VOMITED X2,ZOFRAN 4MG/GT GIVEN ORDERED
--- NOTE | 2020-04-24 06:20 | NUR ---
AFTER SCHOOL TEACHER NOTES ON BED ASLEEP,EASILY AROUSABLE TO VERBAL STIMULI,BREATHING NON LABORED,VENT SETTINGS TOLERATED WELL,SUCTION NEEDED.GT CLAMPED AT THIS TIME,DUE TO VOMITING.ABDOMEN DISTENDED BUT SOFT.D/C PLANNING AWAITING FOR HD CATH PLACEMENT.IN NO ACUTE DISTRESS.
[2020-04-24 06:46] LABS: BASOPHILS % (AUTO) 0.2 % (0.0-2.0); EOSINOPHILS % (AUTO) 7.1 % (0.0-6.0); HEMATOCRIT 38 % (33-45); HEMOGLOBIN 11.6 g/dL (11.5-14.8); LYMPHOCYTES # (AUTO) 0.5 /CMM (0.8-4.8); LYMPHOCYTES % (AUTO) 6.9 % (20.0-44.0); MEAN CORPUSCULAR HGB CONC 30 g/dl (31.0-36.0); MEAN CORPUSCULAR VOLUME 119 fL (82-100); MONOCYTES # (AUTO) 0.3 /CMM (0.1-1.30); MONOCYTES % (AUTO) 4.4 % (2.0-12.0); NEUTROPHILS # (AUTO) 6.4 /CMM (1.8-8.9); NEUTROPHILS % (AUTO) 81.4 % (43.0-81.0); PLATELET COUNT (AUTO) 192 /CMM (150-450); RED BLOOD CELL COUNT(AUTO) 3.21 MIL/uL (4.0-5.2); WHITE BLOOD COUNT (AUTO) 7.8 K/uL (4.3-11.0)
[2020-04-24] MEDS: NEPRO 1,000 ML BOTTLE GT PRN (06:50)
[2020-04-24] MEDS: LEVOTHYROXINE SODIUM 100 MCG TABLET GT SCH (06:53)
[2020-04-24 06:57] LABS: CALCIUM, SERUM 8.4 mg/dL (8.5-10.1); CARBON DIOXIDE 23 mmol/L (21-32); CHLORIDE 100 mmol/L (98-107); CREATININE 2.9 mg/dL (0.6-1.3); GLUCOSE 75 mg/dL (74-106); MAGNESIUM 1.9 mg/dL (1.8-2.4); PHOSPHORUS 4.7 mg/dL (2.5-4.9); POTASSIUM 4.3 mmol/L (3.5-5.1); SODIUM SERUM 133 mmol/L (136-145); UREA NITROGEN, BLOOD 51 mg/dL (7-18)
--- NOTE | 2020-04-24 07:49 | NUR ---
HOMEBOUND TEACHER NOTES RECEIVED PATIENT IN BED. ALERT, ORIENTED X4. PATIENT APPEARS TO BE PALE. NO SOB OR ANY DISTRESS NOTED. BP NOTED 80/46. PULSE 65. RESPIRATION 30. MD MADE AWARE OF PATIENTS CONDITION. ORDERS RECEIVED FOR NORMAL SALINE 500ML BOLUS AND STAT ANNELIESE. ORDERS NOTED AND CARRIED OUT. WILL CONTINUE TO MONITOR.
[2020-04-24] MEDS ORDERED: IV NS 0.9% 500 ML BAG IV ONE ×2 (08:00→10:30)
[2020-04-24] MEDS: AMIODARONE HCL 200 MG TABLET PO SCH ×2 (09:00→17:00)
[2020-04-24] MEDS: LACTULOSE 10 G/15 ML UDC (PYXIS) GT SCH ×2 (09:00→17:00)
--- NOTE | 2020-04-24 09:24 | NUR ---
TERRITORY SUPERVISOR NOTES PATIENT WAS SEEN AND EVALUATED BY ZEYNEP Romero NP, NO NEW ORDERS GIVEN. STATES TO MONITOR PATIENTS BP AND IF DOES NOT IMPROVE TRANSFER PATIENT TO ICU. WILL CONTINUE TO MONITOR.
[2020-04-24] MEDS: CITALOPRAM HYDROBROMIDE 10 MG TABLET GT SCH (10:07)
[2020-04-24] MEDS: HYDROCORTISONE 5 MG TABLET GT SCH (10:08)
[2020-04-24] MEDS: ERYTHROMYCIN ETHYLSUCCINATE 200 MG/5 ML SUSPENSION GT SCH ×3 (10:08→17:00)
[2020-04-24] MEDS: METOCLOPRAMIDE HCL 10 MG TABLET GT SCH ×3 (10:09→17:00)
[2020-04-24] MEDS: PANTOPRAZOLE 40 MG/PACK PACK GT SCH (10:09)
[2020-04-24] MEDS: MULTIVITAMINS,THERAGRAN 1 UDTAB TABLET GT SCH (10:10)
[2020-04-24] MEDS: ASCORBIC ACID 500 MG TABLET GT SCH (10:10)
[2020-04-24] MEDS: GLYCOPYRROLATE 1 MG TABLET GT SCH ×3 (10:11→17:00)
[2020-04-24] MEDS: HYDROGEL DRESSING 90 GM TUBE TP SCH (10:12)
[2020-04-24] MEDS: MUPIROCIN OINT 2% 22 GM TUBE SCH ×2 (10:12→22:12)
[2020-04-24] MEDS: CLOTRIMAZOLE 1% 15 GM TUBE TP SCH ×2 (10:13→17:21)
[2020-04-24] MEDS: PROSOURCE / PROSTAT (PYXIS) 30 ML UDC GT SCH ×3 (10:20→17:00)
[2020-04-24] MEDS: CALCIUM POLYCARBOPHIL 625 MG TABLET GT SCH ×2 (10:20→17:00)
[2020-04-24] MEDS ORDERED: NOREPINEPHRINE 8 MG in IV NS 0.9% 242 ML IV PRN (10:30)
[2020-04-24] MEDS ORDERED: IV NS 0.9% 250 ML IV ONE (10:30)
--- NOTE | 2020-04-24 10:30 | NUR ---
MS RN NOTES PATIENT NOTED WITH BP OF 71/36 HEART RATE [address] GAYLE, DR. GAYLE SEEN AND EVALUATED PATIENT ORDERS TO TRANSFER PATIENT TO ICU. WAITING FOR BED.
--- NOTE | 2020-04-24 11:00 | NUR ---
AGRICULTURAL INSPECTOR NOTES TRANSFERRED PATIENT TO ICU. FOR LOW BP PATIENT IS ALERT, ORIENTED X3. BP 71/38. BEDSIDE REPORT GIVEN TO ANI RN AT BEDSIDE.
[2020-04-24] MEDS: NOREPINEPHRINE 8 MG in IV NS 0.9% 242 ML IV PRN (12:17)
[2020-04-24] MEDS: HYDROCORTISONE SOD SUCCINATE 100 MG/2 ML VIAL IV SCH ×2 (12:18→17:16)
[2020-04-24] MEDS: LORAZEPAM 1 MG TABLET PO PRN (13:59)
--- NOTE | 2020-04-24 14:20 | NUR ---
INFORMED HOSEA OF CT OF PELVIS/ABD RESULTS. WILL CARRY OUT NEW ORDERS.
[2020-04-24] MEDS ORDERED: MORPHINE SULFATE INJ 2 MG/ML DISP.SYRIN IM PRN (14:30)
[2020-04-24] MEDS: MORPHINE SULFATE INJ 2 MG/ML DISP.SYRIN IV PRN (17:17)
[2020-04-24] MEDS: MEROPENEM 500 MG in IV NS 0.9% 50 ML IV SCH (17:50)
--- NOTE | 2020-04-24 18:14 | NUR ---
COLLECTED URINE. INFORMED RT TO COLLECT SPUTUM TO SEND OUT FOR CULTURE. CONTACTED LAB TO LAUNDRY ATTENDANT SPECIMENS.
[2020-04-24] MEDS: LORAZEPAM INJ 2 MG/ML VIAL IV PRN (18:22)
--- NOTE | 2020-04-24 18:52 | NUR ---
RN CLOSING NOTE: PATIENT IS CURRENTLY RESTING IN BED. NO SIGNS OF ACUTE RESPIRATORY DISTRESS NOTED. NO SIGNS OF ACUTE DISTRESS NOTED. PATIENT IS ST ON BEDSIDE MONITOR IN THE 100S. SAFETY MEASURES IMPLEMENTED, BED IN LOWEST POSITION, LOCKED, SIDE RAILS UP, CALL LIGHT WITHIN REACH. WILL ENDORSE TO ONCOMING SHIFT RN FOR CONTINUITY OF CARE.
[2020-04-25] VITALS (89 sets, daily range): BP systolic 60–116; BP diastolic 25–79
[2020-04-25] MEDS: NOREPINEPHRINE 8 MG in IV NS 0.9% 242 ML IV PRN (00:27)
[2020-04-25] MEDS: MORPHINE SULFATE INJ 2 MG/ML DISP.SYRIN IV PRN ×6 (01:14→18:42)
[2020-04-25] MEDS: IPRATROPIUM NEB FS 0.5 MG/2.5 ML AMPUL.NEB NEB SCH ×4 (01:36→19:46)
[2020-04-25] MEDS: ALBUTEROL FS 2.5 MG/3 ML VIAL.NEB NEB SCH ×4 (01:36→19:46)
--- NOTE | 2020-04-25 03:29 | NUR ---
NUTRITIONISTS NOTE PT HR 120-140'S AFIB UNCONTROLLED. EKG DONE. NOTIFIED DR. ARCEO WITH ORDERS TO START AMIO DRIP AND CHANGE LEVO TO SYED DRIP TO MAINTAIN SBP >90. ORDERS NOTED AND CARRIED OUT. WILL MONITOR.
[2020-04-25] MEDS ORDERED: AMIODARONE 150 MG in IV D5W 100 ML IV ONE (03:30)
[2020-04-25] MEDS ORDERED: AMIODARONE 150 MG/3 ML VIAL IV ONE ×2 (04:11→04:19)
[2020-04-25 04:18] LABS: BASOPHILS % (AUTO) 0.1 % (0.0-2.0); EOSINOPHILS % (AUTO) 0.1 % (0.0-6.0); HEMATOCRIT 40 % (33-45); HEMOGLOBIN 12.6 g/dL (11.5-14.8); LYMPHOCYTES # (AUTO) 0.5 /CMM (0.8-4.8); MEAN CORPUSCULAR HGB CONC 31 g/dl (31.0-36.0); MEAN CORPUSCULAR VOLUME 115 fL (82-100); MONOCYTES # (AUTO) 0.5 /CMM (0.1-1.30); NEUTROPHILS # (AUTO) 11.4 /CMM (1.8-8.9); NEUTROPHILS % (AUTO) 91.8 % (43.0-81.0); PLATELET COUNT (AUTO) 259 /CMM (150-450); RED BLOOD CELL COUNT(AUTO) 3.48 MIL/uL (4.0-5.2); WHITE BLOOD COUNT (AUTO) 12.4 K/uL (4.3-11.0)
[2020-04-25] MEDS: LORAZEPAM INJ 2 MG/ML VIAL IV PRN (04:24)
[2020-04-25] MEDS: AMIODARONE 450 MG in IV D5W 250 ML IV PRN ×2 (04:27→11:40)
[2020-04-25] MEDS ORDERED: PHENYLEPHRINE 10 MG/ML VIAL ONE (04:34)
[2020-04-25 04:35] LABS: ALANINE AMINOTRANSFERASE 8 U/L (12-78); ALBUMIN 1.6 g/dL (3.4-5.0); ALKALINE PHOSPHATASE 88 U/L (46-116); ASPARTATE AMINOTRANSFERASE 18 U/L (15-37); BILIRUBIN,TOTAL 0.6 mg/dL (0.2-1.0); CALCIUM, SERUM 8.9 mg/dL (8.5-10.1); CARBON DIOXIDE 27 mmol/L (21-32); CHLORIDE 101 mmol/L (98-107); CREATININE 3.4 mg/dL (0.6-1.3); MAGNESIUM 1.8 mg/dL (1.8-2.4); PHOSPHORUS 4.2 mg/dL (2.5-4.9); POTASSIUM 4.8 mmol/L (3.5-5.1); SODIUM SERUM 137 mmol/L (136-145); TOTAL PROTEIN, SERUM 5.7 g/dL (6.4-8.2); UREA NITROGEN, BLOOD 61 mg/dL (7-18)
[2020-04-25] MEDS: PHENYLEPHRINE 100 MG in IV NS 0.9% 240 ML IV PRN (04:41)
[2020-04-25 05:03] LABS: GLUCOSE 44 mg/dL (74-106)
[2020-04-25] MEDS ORDERED: DEXTROSE 50%-WATER 50 ML DISP.SYRIN ONE (05:25)
[2020-04-25] MEDS: DEXTROSE 50%-WATER 50 ML DISP.SYRIN IVP PRN ×3 (05:26→22:20)
[2020-04-25] MEDS: LEVOTHYROXINE SODIUM 100 MCG TABLET GT SCH (06:26)
[2020-04-25] MEDS: HYDROCORTISONE SOD SUCCINATE 100 MG/2 ML VIAL IV SCH ×3 (08:34→18:41)
[2020-04-25] MEDS: CITALOPRAM HYDROBROMIDE 10 MG TABLET GT SCH (09:00)
[2020-04-25] MEDS ORDERED: IV D5/ 0.9% NACL 1,000 ML IV ONE (09:00)
[2020-04-25] MEDS: GLYCOPYRROLATE 1 MG TABLET GT SCH ×3 (09:00→17:00)
[2020-04-25] MEDS: METOCLOPRAMIDE HCL 10 MG TABLET GT SCH ×3 (09:00→17:00)
[2020-04-25] MEDS: PANTOPRAZOLE 40 MG/PACK PACK GT SCH (09:00)
[2020-04-25] MEDS: ERYTHROMYCIN ETHYLSUCCINATE 200 MG/5 ML SUSPENSION GT SCH ×3 (09:00→17:00)
[2020-04-25] MEDS: LACTULOSE 10 G/15 ML UDC (PYXIS) GT SCH ×2 (09:00→17:00)
[2020-04-25] MEDS: HYDROGEL DRESSING 90 GM TUBE TP SCH (09:00)
[2020-04-25] MEDS: CALCIUM POLYCARBOPHIL 625 MG TABLET GT SCH ×2 (09:00→17:00)
[2020-04-25] MEDS: MULTIVITAMINS,THERAGRAN 1 UDTAB TABLET GT SCH (09:00)
[2020-04-25] MEDS: ASCORBIC ACID 500 MG TABLET GT SCH (09:00)
[2020-04-25] MEDS: PROSOURCE / PROSTAT (PYXIS) 30 ML UDC GT SCH ×3 (09:00→17:00)
[2020-04-25 09:11] LABS: ABG BASE EXCESS -0.6 mmol/L; ABG OXYGEN SATURATION 95.3 % (92.0-98.5); ABG PCO2 35.4 mmHg (35.0-45.0); ABG PH 7.433 (7.350-7.450); AaDO2 168.5 mmHg; COHb 1.4 % (0.5-1.5); MetHb 0.1 % (0.0-1.5); O2Hb 93.9 % (94.0-97.0); SITE, ABG Right Radial
--- NOTE | 2020-04-25 10:06 | NUR ---
PATIENTS BS 40, D50% WAS ADMITTED PER PROTOCOL, BS 93 @1005. WILL CONTINUE TO MONITOR THE PATIENT CLOSELY.
[2020-04-25] MEDS ORDERED: DEXTROSE 50%-WATER 50 ML DISP.SYRIN IVP ONE (12:00)
[2020-04-25 12:06] LABS: HEPATITIS Be AB Negative (Negative)
[2020-04-25] MEDS: MUPIROCIN OINT 2% 22 GM TUBE SCH ×2 (13:12→21:48)
[2020-04-25] MEDS: CLOTRIMAZOLE 1% 15 GM TUBE TP SCH ×2 (13:12→18:57)
[2020-04-25] MEDS ORDERED: DIATR MEGLU/DIATRIZOATE SODIUM 120 ML BOTTLE (GASTROGRAPHIN) ONE (14:35)
--- NOTE | 2020-04-25 17:02 | NUR ---
ICU/RN Pt was received this am with trach and PEG. On AC on the vent as ordered, GT is clamped, meds via GT are on hold. CT of abd/pelvis showed GT is dislodged with free air noted in the upper abd. Surgery and GI was consulted. Dr. Celaya came and saw pt. Ordered Abd xray with gastrogaraffin test which was done at 1700 in radiology. Shadi T MVA OPERATOR was notified of hypoglycemia today, was started on D5 NS at 80 cc/hr. POC glucose was done after and was still 45 at 1135, gave D50 as ordered. Permacath for HD on hold at this time per Shadi MVA OPERATOR 1340 GT tube site started leaking with dark green bile and so was the trach site with the same bile dark green color, Shadi was made aware. 1650 NGT placed in the right nare as ordered by surgery to LIS. Obtained 1L prior to going to radiology. 1750 blood sugar was 54, Shadi was notified, no new order given. STAT CBC done as ordered by surgery. R NGT connected to LIS again as ordered. Addendum: 04/27/20 at 1855 by TERESA BROOKS RN late addendum: Vanco was not given on this shift because per pharmacist Vanco trough was 19 yesterday and was 0 this am which was odd. Pt also did not have dialysis because she did not have dialysis cath in place and is on central line vacation. So per pharmacist, pt will not have Vanco diose today and will check the trough level in am 04/26.
[2020-04-25] MEDS ORDERED: VANCOMYCIN 1 GM in IV D5W 250 ML IV ONE (18:00)
[2020-04-25] MEDS: MEROPENEM 500 MG in IV NS 0.9% 50 ML IV SCH (18:38)
[2020-04-25] MEDS: MICAFUNGIN SODIUM 100 MG in IV NS 0.9% 100 ML IV SCH (18:39)
[2020-04-25 18:43] LABS: CALCIUM, SERUM 8.3 mg/dL (8.5-10.1); CARBON DIOXIDE 25 mmol/L (21-32); CHLORIDE 101 mmol/L (98-107); CREATININE 3.6 mg/dL (0.6-1.3); EOSINOPHILS % (AUTO) 0.1 % (0.0-6.0); GLUCOSE 161 mg/dL (74-106); HEMOGLOBIN 11.8 g/dL (11.5-14.8); LYMPHOCYTES # (AUTO) 0.3 /CMM (0.8-4.8); NEUTROPHILS # (AUTO) 12.6 /CMM (1.8-8.9); POTASSIUM 4.8 mmol/L (3.5-5.1); SODIUM SERUM 136 mmol/L (136-145); UREA NITROGEN, BLOOD 59 mg/dL (7-18); WHITE BLOOD COUNT (AUTO) 13.3 K/uL (4.3-11.0)
[2020-04-25 18:47] LABS: BASOPHILS % (AUTO) 0.1 % (0.0-2.0); HEMATOCRIT 38 % (33-45); LYMPHOCYTES % (AUTO) 1.9 % (20.0-44.0); MEAN CORPUSCULAR HGB CONC 31 g/dl (31.0-36.0); MEAN CORPUSCULAR VOLUME 117 fL (82-100); MONOCYTES # (AUTO) 0.5 /CMM (0.1-1.30); MONOCYTES % (AUTO) 3.4 % (2.0-12.0); NEUTROPHILS % (AUTO) 94.5 % (43.0-81.0); PLATELET COUNT (AUTO) 257 /CMM (150-450); RED BLOOD CELL COUNT(AUTO) 3.24 MIL/uL (4.0-5.2)
[2020-04-25 18:48] LABS: ALANINE AMINOTRANSFERASE 7 U/L (12-78); ALKALINE PHOSPHATASE 70 U/L (46-116); ASPARTATE AMINOTRANSFERASE 24 U/L (15-37); BILIRUBIN,TOTAL 0.5 mg/dL (0.2-1.0); TOTAL PROTEIN, SERUM 5.2 g/dL (6.4-8.2)
[2020-04-25 19:20] LABS: ALBUMIN 1.3 g/dL (3.4-5.0)
--- NOTE | 2020-04-25 19:30 | NUR ---
ASSEMBLY TECHNICIAN OPENING NOTES, RECEIVED PATIENT IN BED AWAKE, A/O X2-3. ABLE TO MAKES HER NEEDS KNOWN. PATIENT HAS TRACH AND PEG. GT IS CLAMPED. PATIENTS GT IS DISLODGED AND UPPER ABD IS FILLED WITH AIR. DR BRONSON IS AWARE OF THE RESULTS AND SURGERY MIGHT BE IN CLOSE FUTURE. PATIENT HAS LOW GLUCOSE LEVER ALL DAY AND LAST NIGHT. GTUBE SITE AND TRACH SIGHT LEAKING GREEN BILE, NG WAS INSERTED AND DRAINED FLUID. CHRISTINA PICC LINE RUNNING AMIO @1MG AND SYED @1.5 MG. UNCONTROLLED AFIIB ON BEDSIDE MONITOR IN 120S. BED IS IN LOW LOCKED POSITION CALL LIGHT WITHIN REACH WILL CONTINUE TO MONITOR.
--- NOTE | 2020-04-25 19:45 | NUR ---
CRITICAL LAB VALUE OF ALBUMIN 1.3 WAS REPORTED FROM LAB. PILAR SOMMER WAS NOTIFIED. NO NEW ORDERS WAS RECEIVED.
[2020-04-25 20:43] LABS: BAND % (MANUAL) 59 % (0.0-5.0); EOSINOPHILS % (MANUAL) 1 % (0-4); LYMPHOCYTES % (MANUAL) 4 % (16-48); METAMYELOCYTES % 9 % (0-0); MONOCYTES % (MANUAL) 2 % (0-11.0); MYELOCYTES % 2 % (0-0); NEUTROPHILS % (MANUAL) 23 (42-76)
--- NOTE | 2020-04-25 21:20 | NUR ---
DR NARVAEZ CALLED. WILL PERFORM SURGERY TONIGHT, "EXPLORATORY LAPAROTOMY POSSIBLE BOWEL RESECTION, POSSIBLE OSTOMY, EXPLORATION OF GASTRIC TUBE SITE". CHARGE NURSE, NURSING METAL CAN INSPECTOR WAS NOTIFIED. SURGERY CONSENT AND ANAESTHESIA CONSENT WAS SIGNED BY PATIENT, LET MESSAGE TO SONMARIO.
[2020-04-25] MEDS: BLOOD SUGAR DIAGNOSTIC 1 EACH STRIP IN SCH ×3 (22:06→22:21)
[2020-04-25] MEDS ORDERED: FENTANYL PF 250MCG/5ML AMPUL ONE (22:10)
[2020-04-25] MEDS ORDERED: MIDAZOLAM HCL 2 MG/2ML VIAL ONE (22:10)
[2020-04-25] MEDS ORDERED: HYDROMORPHONE INJ 2 MG/ML DISP.SYRIN ONE (22:12)
[2020-04-25] MEDS ORDERED: ROCURONIUM BROMIDE 50 MG/5 ML ONE (22:13)
[2020-04-25] MEDS ORDERED: FAMOTIDINE/PF INJ 20 MG/2 ML VIAL IV ONE (22:13)
[2020-04-25] MEDS ORDERED: ANESTHESIA TRAY IN PYXIS 1 EA TRAY MC ONE (22:20)
--- NOTE | 2020-04-25 22:40 | NUR ---
PATIENT WAS ESCORTED TO OR VIA BED WITH TIRE INSPECTOR. VSS
[2020-04-25] MEDS ORDERED: methylPREDNISolone SOD SUCC 125 MG/2ML VIAL ONE (22:42)
--- NOTE | 2020-04-25 22:47 | NUR ---
TOOK PT TO O.R.
[2020-04-26] VITALS (104 sets, daily range): BP systolic 48–112; BP diastolic 24–77
[2020-04-26] MEDS ORDERED: BACITRACIN ZINC OINT PACKET 1 EA PACKET TP ONE (00:44)
[2020-04-26] MEDS: IPRATROPIUM NEB FS 0.5 MG/2.5 ML AMPUL.NEB NEB SCH ×4 (01:17→19:40)
[2020-04-26] MEDS: ALBUTEROL FS 2.5 MG/3 ML VIAL.NEB NEB SCH ×4 (01:17→19:40)
--- NOTE | 2020-04-26 01:30 | NUR ---
PATIENT BACK FROM SURGERY. ATTACHED TO BEDSIDE MONITOR. ANESTHESIOLOGIST AT BEDSIDE. PATIENT STABLE. BS LOW 64. SUBSCRIPTION CLERK NOTIFIED. Addendum: 04/26/20 at 0302 by AARON VIVAR RN PATIENT HAD 3000 ML OF FLUID REMOVED FROM ABD CAVITY. 2 KIRK DRAINS NOTED #1 IN UPPER ABD AND #2 IN LOWER ABD DRAINING RED FLUID. DRESSING DRY CLEAN INTACT. NO S/S OF SOB OR ACUTE DISTRESS NOTED. WILL CONTINUE TO MONITOR THE PATIENT CLOSELY. Addendum: 04/26/20 at 0730 by AARON VIVAR RN #1 KIRK, UPPER, DRAINED 90ML RED LIQUID. AND KIRK #2 LOWER, DRAINED 75ML RED LIQUID DURING STEEL UNLOADER POST ABD SURGERY
[2020-04-26] MEDS: BLOOD SUGAR DIAGNOSTIC 1 EACH STRIP IN SCH ×4 (01:45→17:19)
[2020-04-26] MEDS ORDERED: IV LR 1000 ML 1,000 ML IV PRN (02:00)
[2020-04-26] MEDS ORDERED: HYDROMORPHONE INJ 0.5 MG/0.5 ML SYRINGE IV PRN ×2 (02:00)
[2020-04-26] MEDS: PHENYLEPHRINE 100 MG in IV NS 0.9% 240 ML IV PRN ×3 (02:15→17:22)
--- NOTE | 2020-04-26 02:25 | NUR ---
DEON GARZON PATHOLOGIST ASSISTANT, DR ARCEO AND SURGEON DR. BRONSON TO CLARIFY IV ORDER. AWAITING FOR RESPOND.
[2020-04-26 04:07] LABS: BASOPHILS % (AUTO) 0.1 % (0.0-2.0); EOSINOPHILS % (AUTO) 0.1 % (0.0-6.0); HEMATOCRIT 41 % (33-45); HEMOGLOBIN 12.2 g/dL (11.5-14.8); LYMPHOCYTES # (AUTO) 0.3 /CMM (0.8-4.8); LYMPHOCYTES % (AUTO) 2.2 % (20.0-44.0); MEAN CORPUSCULAR HGB CONC 30 g/dl (31.0-36.0); MEAN CORPUSCULAR VOLUME 121 fL (82-100); MONOCYTES % (AUTO) 0.3 % (2.0-12.0); NEUTROPHILS # (AUTO) 14.8 /CMM (1.8-8.9); NEUTROPHILS % (AUTO) 97.3 % (43.0-81.0); PLATELET COUNT (AUTO) 296 /CMM (150-450); RED BLOOD CELL COUNT(AUTO) 3.37 MIL/uL (4.0-5.2); WHITE BLOOD COUNT (AUTO) 15.2 K/uL (4.3-11.0)
[2020-04-26 04:31] LABS: ALANINE AMINOTRANSFERASE 13 U/L (12-78); ALKALINE PHOSPHATASE 72 U/L (46-116); ASPARTATE AMINOTRANSFERASE 29 U/L (15-37); BILIRUBIN,TOTAL 0.4 mg/dL (0.2-1.0); CALCIUM, SERUM 8.4 mg/dL (8.5-10.1); CARBON DIOXIDE 22 mmol/L (21-32); CHLORIDE 101 mmol/L (98-107); CREATININE 3.8 mg/dL (0.6-1.3); GLUCOSE 64 mg/dL (74-106); MAGNESIUM 1.9 mg/dL (1.8-2.4); PHOSPHORUS 5.7 mg/dL (2.5-4.9); POTASSIUM 5.4 mmol/L (3.5-5.1); SODIUM SERUM 136 mmol/L (136-145); TOTAL PROTEIN, SERUM 5.1 g/dL (6.4-8.2); UREA NITROGEN, BLOOD 65 mg/dL (7-18)
[2020-04-26 04:48] LABS: ALBUMIN 1.3 g/dL (3.4-5.0)
[2020-04-26] MEDS: IV 10% DEXTROSE 1,000 ML IV PRN ×3 (04:58→17:22)
[2020-04-26 05:13] LABS: LYMPHOCYTES % (MANUAL) 2 % (16-48)
[2020-04-26 05:14] LABS: METAMYELOCYTES % 4 % (0-0); NEUTROPHILS % (MANUAL) 20 (42-76)
[2020-04-26 05:15] LABS: BAND % (MANUAL) 74 % (0.0-5.0)
[2020-04-26] MEDS: LEVOTHYROXINE SODIUM 100 MCG TABLET GT SCH (07:00)
[2020-04-26] MEDS ORDERED: HYDROMORPHONE 1 MG/1 ML DISP.SYRIN IV PRN (07:03)
--- NOTE | 2020-04-26 07:45 | NUR ---
EMERGENCY SPECIALIST CLOSING NOTES, PATIENT IN BED STILL DROWSY, A/O X2 WHEN AWAKE. ABLE TO MAKES HER NEEDS KNOWN. PATIENT HAS TRACH AND PEG. AFIB ON BEDSIDE MONITOR, MD AWARE. NEW GT TUBE IS CLAMPED. PATIENTS HAD EMERGENCY ABD SURGERY WITH DR BENNETT. TOLERATED WELL. PATIENT HAS CHRISTINA PICC LINE RUNNING SYED@2.3 MCG AND D10 @75ML/HR DUE TO LOW BS. 2 KIRK DRAINS DRAINING RED FLUID. NG TUBE IS CONNECTED TO MEDIUM SUCTION DRAINING GREEN FLUID. PATIENTS ALL NEED MET DURING YOUTH CORRECTIONS OFFICER. CALL LIGHT WITHIN REACH, BED IN LOW LOCKED POSITION ENDORSED THE PATIENT TO AM RN FOR EVELYN.
[2020-04-26] MEDS: GLYCOPYRROLATE 1 MG TABLET GT SCH ×3 (07:55→11:49)
[2020-04-26] MEDS: PROSOURCE / PROSTAT (PYXIS) 30 ML UDC GT SCH ×3 (07:55→11:49)
[2020-04-26] MEDS: LACTULOSE 10 G/15 ML UDC (PYXIS) GT SCH ×2 (07:55→11:47)
[2020-04-26] MEDS: CITALOPRAM HYDROBROMIDE 10 MG TABLET GT SCH (07:55)
[2020-04-26] MEDS: CALCIUM POLYCARBOPHIL 625 MG TABLET GT SCH ×2 (07:55→11:47)
[2020-04-26] MEDS: ERYTHROMYCIN ETHYLSUCCINATE 200 MG/5 ML SUSPENSION GT SCH ×3 (07:55→11:49)
[2020-04-26] MEDS: MULTIVITAMINS,THERAGRAN 1 UDTAB TABLET GT SCH (07:56)
[2020-04-26] MEDS: ASCORBIC ACID 500 MG TABLET GT SCH (07:56)
[2020-04-26] MEDS: METOCLOPRAMIDE HCL 10 MG TABLET GT SCH ×3 (07:57→11:49)
[2020-04-26] MEDS: HYDROGEL DRESSING 90 GM TUBE TP SCH (09:00)
[2020-04-26] MEDS: MUPIROCIN OINT 2% 22 GM TUBE SCH ×2 (09:00→21:34)
[2020-04-26] MEDS: CLOTRIMAZOLE 1% 15 GM TUBE TP SCH ×2 (09:00→17:00)
[2020-04-26] MEDS: PANTOPRAZOLE 40 MG VIAL IV SCH (09:08)
[2020-04-26] MEDS: HYDROCORTISONE SOD SUCCINATE 100 MG/2 ML VIAL IV SCH ×3 (09:08→17:18)
[2020-04-26] MEDS: HEPARIN SODIUM, PORCINE 5000 UNITS/1 ML VIAL SQ SCH ×2 (11:53→23:47)
[2020-04-26] MEDS: DEXTROSE 50%-WATER 50 ML DISP.SYRIN IVP PRN (12:06)
[2020-04-26] MEDS ORDERED: HEPARIN SODIUM, PORCINE 5000 UNITS/1 ML VIAL IVF PRN (14:30)
[2020-04-26] MEDS ORDERED: LIDOCAINE 1%-EPI 1:100,000 20 ML VIAL TP ONE (14:30)
[2020-04-26] MEDS ORDERED: HEPARIN SODIUM, PORCINE 1,000 UNIT/ML VIAL IV ONE (15:00)
[2020-04-26] MEDS: MEROPENEM 500 MG in IV NS 0.9% 50 ML IV SCH (17:18)
[2020-04-26] MEDS: MICAFUNGIN SODIUM 100 MG in IV NS 0.9% 100 ML IV SCH (18:01)
--- NOTE | 2020-04-26 18:07 | NUR ---
ICU Shift Summary Patient slept for most of shift. Opens eyes to name, oriented to self, able to follow commands. Tele monitor attached, afib, uncontrolled HR 120s, Dr. Murry aware (dc'd amio drip). NGT connected to LIS - 250mL greenish/brownish gastric drainage for shift. No BM. Bowel sounds hypoactive. ?flatus? Patient produces urine. HD supposed to be completed today, however, no access. Dr. Oscar Soto verbalized he will come today. Consent for HD access placement + for dialysis in chart. Materials gathered. Wound care completed, turned per protocol. Dr. Celaya called, NPO except meds, no feeding for now. CHRISTINA PICC infusing cherrie @1.6mcg/kg/min + D10W @75mL/hr. KIKR drains x2 upper total output for shift: 110 mL(serosang) , lower total output for shift: 75mL (serosang). Afternoon BG 56 - x1 amp D50 given.
--- NOTE | 2020-04-26 23:48 | NUR ---
GENERAL MANAGER ROAD PRODUCTION: MADE FOLLOW-UP WT DR. WANG IF HE'S COMING TO INSERT HD ACCESS AND SAID "YES". HEPARIN SUB-Q HELD AT THIS TIME PT WILL RECEIVE IVP DURING INSERTION. MADE AWARE AND AGREED.
[2020-04-27] VITALS (86 sets, daily range): BP systolic 66–152; BP diastolic 27–120
[2020-04-27] MEDS: BLOOD SUGAR DIAGNOSTIC 1 EACH STRIP IN SCH ×5 (00:01→23:45)
[2020-04-27] MEDS: ALBUTEROL FS 2.5 MG/3 ML VIAL.NEB NEB SCH ×2 (01:02→07:47)
[2020-04-27] MEDS: IPRATROPIUM NEB FS 0.5 MG/2.5 ML AMPUL.NEB NEB SCH ×4 (01:02→20:12)
--- NOTE | 2020-04-27 01:15 | NUR ---
RAYMOND MILL OPERATOR: RIGHT INTER JUGULAR HD CATH INSERTED BY DR. WANG AT BEDSIDE AND TOLERATED FAIRLY. STAT CXR ORDERED.
[2020-04-27] MEDS: PHENYLEPHRINE 100 MG in IV NS 0.9% 240 ML IV PRN ×2 (02:15→21:16)
[2020-04-27] MEDS: HYDROMORPHONE 1 MG/1 ML DISP.SYRIN IV PRN (04:08)
[2020-04-27 04:52] LABS: BASOPHILS % (AUTO) 0.1 % (0.0-2.0); EOSINOPHILS % (AUTO) 1.2 % (0.0-6.0); HEMATOCRIT 38 % (33-45); HEMOGLOBIN 11.4 g/dL (11.5-14.8); LYMPHOCYTES # (AUTO) 0.2 /CMM (0.8-4.8); LYMPHOCYTES % (AUTO) 1.4 % (20.0-44.0); MEAN CORPUSCULAR HGB CONC 31 g/dl (31.0-36.0); MEAN CORPUSCULAR VOLUME 118 fL (82-100); MONOCYTES # (AUTO) 0.1 /CMM (0.1-1.30); MONOCYTES % (AUTO) 0.6 % (2.0-12.0); NEUTROPHILS # (AUTO) 13.5 /CMM (1.8-8.9); NEUTROPHILS % (AUTO) 96.7 % (43.0-81.0); PLATELET COUNT (AUTO) 226 /CMM (150-450); RED BLOOD CELL COUNT(AUTO) 3.19 MIL/uL (4.0-5.2)
[2020-04-27 05:19] LABS: ALANINE AMINOTRANSFERASE 33 U/L (12-78); ALKALINE PHOSPHATASE 88 U/L (46-116); ASPARTATE AMINOTRANSFERASE 56 U/L (15-37); BILIRUBIN,TOTAL 0.5 mg/dL (0.2-1.0); CALCIUM, SERUM 8.4 mg/dL (8.5-10.1); CARBON DIOXIDE 23 mmol/L (21-32); CHLORIDE 99 mmol/L (98-107); CREATININE 3.9 mg/dL (0.6-1.3); GLUCOSE 100 mg/dL (74-106); MAGNESIUM 1.9 mg/dL (1.8-2.4); PHOSPHORUS 5.1 mg/dL (2.5-4.9); POTASSIUM 5.4 mmol/L (3.5-5.1); SODIUM SERUM 134 mmol/L (136-145); TOTAL PROTEIN, SERUM 5.2 g/dL (6.4-8.2); UREA NITROGEN, BLOOD 74 mg/dL (7-18)
[2020-04-27 05:32] LABS: ALBUMIN 1.4 g/dL (3.4-5.0)
[2020-04-27 05:38] LABS: BAND % (MANUAL) 56 % (0.0-5.0)
[2020-04-27 05:39] LABS: LYMPHOCYTES % (MANUAL) 1 % (16-48); MONOCYTES % (MANUAL) 1 % (0-11.0); NEUTROPHILS % (MANUAL) 42 (42-76)
[2020-04-27] MEDS: IV 10% DEXTROSE 1,000 ML IV PRN ×2 (06:23→20:39)
--- NOTE | 2020-04-27 06:30 | NUR ---
MATTRESS SPRING ENCASER: PT REMAINS LETHARGIC, ABLE TO MOUTH WORDS AND FOLLOW SIMPLE COMMANDS. VENT SETTINGS ORDERED WT NO ACUTE DISTRESS. PAIN MED GIVEN ORDERED WT GOOD EFFECT. RT. NGT CONTINUE ON LIS WT 150CC GREENISH BROWN GASTRIC CONTENTS. ABDOMINAL DRESSING DRY, CLEAN AND INTACT. KIRK DRAINS INTACT (UPPER KIRK #7=[id number] SEROSANGUINEOUS DRAINAGE & LOWER KIRK #2=80CC SEROUS DRAINAGE). CONTINUE ON NEOSYNEPHRINE AT 1.9MCG/KG/MIN AND D10 AT 75ML/HR. NO HYPOGLYCEMIA NOTED DURING THE SHIFT. RIJ HD CATH INTACT WT NO ACTIVE BLEEDING. HOB AT 30 DEGREES, BED IN LOWEST POSITION AND LOCKED, SIDE RAILS UP X2. ALL NEEDS MET. WILL CONTINUE TO MONITOR.
[2020-04-27 08:10] LABS: ABG BASE EXCESS -5.3 mmol/L; ABG OXYGEN SATURATION 94.7 % (92.0-98.5); ABG PCO2 38.8 mmHg (35.0-45.0); ABG PH 7.332 (7.350-7.450); ABG PO2 79.4 mmHg (75.0-100.0); AaDO2 161.2 mmHg; COHb 0.7 % (0.5-1.5); MetHb 0.3 % (0.0-1.5); O2Hb 93.8 % (94.0-97.0); SITE, ABG Right Radial; VT, ABG 550 mL
[2020-04-27] MEDS: LACTULOSE 10 G/15 ML UDC (PYXIS) GT SCH ×2 (08:43→17:01)
[2020-04-27] MEDS: PANTOPRAZOLE 40 MG VIAL IV SCH (08:43)
[2020-04-27] MEDS: HYDROCORTISONE SOD SUCCINATE 100 MG/2 ML VIAL IV SCH (08:43)
[2020-04-27] MEDS: HEPARIN SODIUM, PORCINE 5000 UNITS/1 ML VIAL SQ SCH ×2 (08:44→21:42)
[2020-04-27] MEDS: GLYCOPYRROLATE 1 MG TABLET GT SCH ×3 (08:45→17:02)
[2020-04-27] MEDS: CITALOPRAM HYDROBROMIDE 10 MG TABLET GT SCH (08:45)
[2020-04-27] MEDS: MULTIVITAMINS,THERAGRAN 1 UDTAB TABLET GT SCH (08:45)
[2020-04-27] MEDS: LEVOTHYROXINE SODIUM 100 MCG TABLET GT SCH (08:45)
[2020-04-27] MEDS: METOCLOPRAMIDE HCL 10 MG TABLET GT SCH ×3 (08:45→17:02)
[2020-04-27] MEDS: ASCORBIC ACID 500 MG TABLET GT SCH (08:46)
[2020-04-27] MEDS: PROSOURCE / PROSTAT (PYXIS) 30 ML UDC GT SCH ×3 (08:49→17:02)
[2020-04-27] MEDS: IV NS 0.9% 1,000 ML IV SCH ×2 (08:49→13:54)
[2020-04-27] MEDS: ERYTHROMYCIN ETHYLSUCCINATE 200 MG/5 ML SUSPENSION GT SCH ×3 (08:53→17:01)
[2020-04-27] MEDS: CALCIUM POLYCARBOPHIL 625 MG TABLET GT SCH ×2 (08:58→17:01)
[2020-04-27] MEDS: CLOTRIMAZOLE 1% 15 GM TUBE TP SCH ×2 (08:59→17:20)
[2020-04-27] MEDS: HYDROGEL DRESSING 90 GM TUBE TP PRN ×2 (09:00→09:01)
[2020-04-27] MEDS: MUPIROCIN OINT 2% 22 GM TUBE SCH ×2 (09:00→21:45)
[2020-04-27] MEDS: HYDROGEL DRESSING 90 GM TUBE TP SCH (09:01)
[2020-04-27] MEDS: MORPHINE SULFATE INJ 2 MG/ML DISP.SYRIN IV PRN ×3 (11:51→20:36)
[2020-04-27] MEDS ORDERED: VANCOMYCIN 1 GM in IV D5W 250 ML IV ONE (14:00)
[2020-04-27] MEDS: MEROPENEM 500 MG in IV NS 0.9% 50 ML IV SCH (17:01)
[2020-04-27] MEDS: MICAFUNGIN SODIUM 100 MG in IV NS 0.9% 100 ML IV SCH (18:11)
--- NOTE | 2020-04-27 18:28 | NUR ---
ICU/RN pt remains lethargic, unable to mouth words, easily arousable but drifts back to sleep. Trach to vent on AC 12 as ordered. Remains on Jb at 1.75 mcg at this time, SBP 80-100's, Gave pain meds twice this shift due to VS changes and pcc grimacing/moaning with position changes. KIRK x 2 are patent and intact. NGT also patent and intact which drained 1 L of dark green bile. Pls see I/O spreadsheet for details. HD on today and took out 2 L. Spoke to Lauren, pt's sister and gave her updates. Will give repot to casino shift manager. Addendum: 04/27/20 at 4 by TERESA BROOKS RN KIRK #1 drained 80 cc, KIRK #2 drained 55 cc from the 12 shift. Both are serosanguinous.
--- NOTE | 2020-04-27 19:00 | NUR ---
Received patient on the ventilator with tracheostomy on AC mode,awake,slightly agitated,grimacing,gagging,resisting both arms,irritable,seems to understand,follows simple commands.Not in any distress.On Neosynephrine drip for BP support(maintain mAP=65).On D10 W iv fluid @ 75 ml/hr with finger stick blood sugar checked q 6 hrs. NGT to LIWS with greenish drainage. Abdominal incision with dressing dry and intact ,no bleeding noted,with 2 KIRK drains to bulb suction with serous (#1),and (#2)serosanguineous drainage.
--- NOTE | 2020-04-27 21:11 | NUR ---
RT NOTE Pt rec'd trached on the [facility] vent on AC mode. Pt shows no signs of resp distress or sob noted. trach is patent and secured. pt sx'd for thick mod amt of yellow secretions. alarms are set and audible. ambu bag bedside. Vent plugged into red outlet. will continue to monitor. Addendum: 04/27/20 at 2124 by YANELI NUÑEZ RT Amended: Links added.
--- NOTE | 2020-04-27 22:00 | NUR ---
Random vanco level ordered prior giving Vancomycin dose.Vancomycin not administered by dayshift after hemodialysis during the day.
--- NOTE | 2020-04-27 22:30 | NUR ---
Vanco level =16.
--- NOTE | 2020-04-27 23:30 | NUR ---
Called pharmacy to verify about vancomycin order. The order for Vancomycin post HD today 04/27/20 has been discontinued , and i'm not able to sign for vancomycin. As per pharmacist notes patient is to get Vancomycin today 04/27/20 post hemodialysis but the order was discontinued @1459. and the new order is scheduled 04/28/20 @ 0600. As per automation analyst pharmacist ,he cant decide and he will leave a note to the morning about the vancomycin dose.
[2020-04-28] VITALS (87 sets, daily range): BP systolic 82–164; BP diastolic 43–100
--- NOTE | 2020-04-28 | NUR ---
EMR was reviewed Vancomycin 1 gram was given 04/27/29 @ 1318.
[2020-04-28] MEDS: IPRATROPIUM NEB FS 0.5 MG/2.5 ML AMPUL.NEB NEB SCH ×4 (01:42→19:30)
--- NOTE | 2020-04-28 02:00 | NUR ---
Stable,still on Neosynephrine @ 1.8 mcg/kg.min. NGT still drainign a lot of greenish drainage.Surgical incision with dressing remains intact,no bleeding.
[2020-04-28] MEDS: MORPHINE SULFATE INJ 2 MG/ML DISP.SYRIN IV PRN (02:36)
[2020-04-28 04:03] LABS: BASOPHILS % (AUTO) 0.1 % (0.0-2.0); EOSINOPHILS % (AUTO) 0.6 % (0.0-6.0); HEMATOCRIT 35 % (33-45); LYMPHOCYTES # (AUTO) 0.3 /CMM (0.8-4.8); LYMPHOCYTES % (AUTO) 3.7 % (20.0-44.0); MEAN CORPUSCULAR HGB CONC 31 g/dl (31.0-36.0); MEAN CORPUSCULAR VOLUME 118 fL (82-100); MONOCYTES # (AUTO) 0.4 /CMM (0.1-1.30); MONOCYTES % (AUTO) 4.7 % (2.0-12.0); NEUTROPHILS # (AUTO) 7.8 /CMM (1.8-8.9); NEUTROPHILS % (AUTO) 90.9 % (43.0-81.0); PLATELET COUNT (AUTO) 165 /CMM (150-450); WHITE BLOOD COUNT (AUTO) 8.6 K/uL (4.3-11.0)
[2020-04-28 04:17] LABS: CARBON DIOXIDE 25 mmol/L (21-32); CHLORIDE 105 mmol/L (98-107); GLUCOSE 125 mg/dL (74-106); MAGNESIUM 1.9 mg/dL (1.8-2.4); PHOSPHORUS 4.2 mg/dL (2.5-4.9); POTASSIUM 4.1 mmol/L (3.5-5.1); SODIUM SERUM 141 mmol/L (136-145); UREA NITROGEN, BLOOD 51 mg/dL (7-18)
[2020-04-28] MEDS: PHENYLEPHRINE 100 MG in IV NS 0.9% 240 ML IV PRN ×2 (04:18→13:10)
[2020-04-28 04:42] LABS: EOSINOPHILS % (MANUAL) 1 % (0-4); LYMPHOCYTES % (MANUAL) 1 % (16-48); MONOCYTES % (MANUAL) 6 % (0-11.0)
[2020-04-28 04:43] LABS: BAND % (MANUAL) 28 % (0.0-5.0); NEUTROPHILS % (MANUAL) 64 (42-76)
[2020-04-28] MEDS: BLOOD SUGAR DIAGNOSTIC 1 EACH STRIP IN SCH ×4 (06:12→23:44)
[2020-04-28] MEDS: LEVOTHYROXINE SODIUM 100 MCG TABLET GT SCH (06:12)
--- NOTE | 2020-04-28 06:15 | NUR ---
KIRK#1 = 80 CC SEROSANGUINEOUS; KIRK#2 = 30 CC SEROUS
--- NOTE | 2020-04-28 07:12 | NUR ---
RN CLOSING NOTE PATIENT REMAINS IN A STABLE CONDITION. STILL ON NEOSYNEPHRINE DRIP FOR BP. ENDORSED TO ARPI RN FOR CONTINUATION OF CARE.
--- NOTE | 2020-04-28 07:58 | NUR ---
ICU/RN INITIAL NOTES,AM RECEIVED REPORT FROM NIGHT NURSE. PT TRACH (NISA 6) TO VENT WITH SETTINGS ORDERED BY MD, NO ACUTE DISTRESS NOTED. PT AWAKE, FOLLOWS COMMANDS, DROWSY/LETHARGIC. PT ON TELE, UNCONTROLLED A.FIB. NGT TO LIS, GREEN OUTPUT NOTED. PEG TUBE IN PLACE, NO FEEDINGS ORDERED AT THIS TIME. RIGHT UPPER ARM PICC LINE IN PLACE, SYED INFUSING FOR BP SUPPORT, D10 ALSO INFUSING AT 75 ML/HR. ABDOMINAL INCISION C/D/I, KIRK DRAINS NOTED WITH OUTPUT, WILL MONITOR. ALL NEEDS WILL BE ATTENDED TO, SAFETY MEASURES TAKEN, BED IN LOW POSITION, SIDE RAILS UP, CALL LIGHT WITHIN REACH. WILL CONTINUE CARE.
[2020-04-28 08:18] LABS: ABG BASE EXCESS -4.1 mmol/L; ABG OXYGEN SATURATION 97.5 % (92.0-98.5); ABG PCO2 38.2 mmHg (35.0-45.0); ABG PH 7.357 (7.350-7.450); ABG PO2 100.5 mmHg (75.0-100.0); AaDO2 140.8 mmHg; COHb 0.7 % (0.5-1.5); MetHb 0.3 % (0.0-1.5); O2Hb 96.5 % (94.0-97.0); SITE, ABG Left Radial; VENT MODE, BG AC 40%; VT, ABG 550 mL
[2020-04-28] MEDS: ERYTHROMYCIN ETHYLSUCCINATE 200 MG/5 ML SUSPENSION GT SCH ×3 (09:09→16:31)
[2020-04-28] MEDS: LACTULOSE 10 G/15 ML UDC (PYXIS) GT SCH ×2 (09:09→16:31)
[2020-04-28] MEDS: ASCORBIC ACID 500 MG TABLET GT SCH (09:10)
[2020-04-28] MEDS: CALCIUM POLYCARBOPHIL 625 MG TABLET GT SCH ×2 (09:10→16:31)
[2020-04-28] MEDS: MULTIVITAMINS,THERAGRAN 1 UDTAB TABLET GT SCH (09:10)
[2020-04-28] MEDS: PANTOPRAZOLE 40 MG VIAL IV SCH (09:10)
[2020-04-28] MEDS: GLYCOPYRROLATE 1 MG TABLET GT SCH ×3 (09:10→16:31)
[2020-04-28] MEDS: METOCLOPRAMIDE HCL 10 MG TABLET GT SCH ×3 (09:10→16:30)
[2020-04-28] MEDS: CITALOPRAM HYDROBROMIDE 10 MG TABLET GT SCH (09:10)
[2020-04-28] MEDS: HYDROGEL DRESSING 90 GM TUBE TP SCH (09:11)
[2020-04-28] MEDS: HYDROCORTISONE SOD SUCCINATE 100 MG/2 ML VIAL IV SCH (09:11)
[2020-04-28] MEDS: MUPIROCIN OINT 2% 22 GM TUBE SCH ×2 (09:11→21:29)
[2020-04-28] MEDS: PROSOURCE / PROSTAT (PYXIS) 30 ML UDC GT SCH ×3 (09:12→16:32)
[2020-04-28] MEDS: CLOTRIMAZOLE 1% 15 GM TUBE TP SCH ×2 (09:12→16:32)
[2020-04-28] MEDS: HEPARIN SODIUM, PORCINE 5000 UNITS/1 ML VIAL SQ SCH ×2 (09:13→21:28)
[2020-04-28] MEDS: IV 10% DEXTROSE 1,000 ML IV PRN (11:25)
--- NOTE | 2020-04-28 12:30 | NUR ---
ICU/RN: HD DONE, 1.5 LITERS OUT. VSS
--- NOTE | 2020-04-28 14:01 | NUR ---
ICU/RN: REPORT ENDORSED TO COLETTE QUILES FOR EVELYN. ALL NEEDS ATTENDED TO, BED BATH RENDERED. SYED INFUSING AT 1.7 MCG/KG/MIN. WILL CONTINUE CARE.
[2020-04-28] MEDS: VANCOMYCIN 500 MG in IV D5W 100 ML IV PRN (14:59)
--- NOTE | 2020-04-28 16:13 | NUR ---
pt is resting in the bed, lethargic, does not follow commands, A fib controlled, on the vent, lungs congested, HD today 1.5 out, GT clamped, NG to ILS, R abd 2 JPs, receiving cherrie at 1mcg, v/s stable, no pain, pt cleaned, changed and repositioned q2hrs.
[2020-04-28] MEDS: MEROPENEM 500 MG in IV NS 0.9% 50 ML IV SCH (16:31)
[2020-04-28] MEDS: MICAFUNGIN SODIUM 100 MG in IV NS 0.9% 100 ML IV SCH (17:19)
[2020-04-28] MEDS ORDERED: TPN/PPN PER PHARMACY XX PRN (18:00)
[2020-04-29] VITALS (85 sets, daily range): BP systolic 85–146; BP diastolic 48–93
[2020-04-29] MEDS: IV 10% DEXTROSE 1,000 ML IV PRN (00:35)
[2020-04-29] MEDS: IPRATROPIUM NEB FS 0.5 MG/2.5 ML AMPUL.NEB NEB SCH ×4 (01:29→20:15)
[2020-04-29 04:01] LABS: BASOPHILS % (AUTO) 0.1 % (0.0-2.0); EOSINOPHILS % (AUTO) 0.4 % (0.0-6.0); HEMATOCRIT 33 % (33-45); LYMPHOCYTES # (AUTO) 0.5 /CMM (0.8-4.8); LYMPHOCYTES % (AUTO) 7.5 % (20.0-44.0); MEAN CORPUSCULAR HGB CONC 30 g/dl (31.0-36.0); MEAN CORPUSCULAR VOLUME 118 fL (82-100); MONOCYTES # (AUTO) 0.5 /CMM (0.1-1.30); MONOCYTES % (AUTO) 8.2 % (2.0-12.0); NEUTROPHILS # (AUTO) 5.4 /CMM (1.8-8.9); NEUTROPHILS % (AUTO) 83.8 % (43.0-81.0); PLATELET COUNT (AUTO) 126 /CMM (150-450); RED BLOOD CELL COUNT(AUTO) 2.81 MIL/uL (4.0-5.2); WHITE BLOOD COUNT (AUTO) 6.4 K/uL (4.3-11.0)
[2020-04-29 04:14] LABS: CALCIUM, SERUM 8.7 mg/dL (8.5-10.1); CARBON DIOXIDE 27 mmol/L (21-32); CHLORIDE 104 mmol/L (98-107); CREATININE 2.7 mg/dL (0.6-1.3); GLUCOSE 97 mg/dL (74-106); MAGNESIUM 1.8 mg/dL (1.8-2.4); PHOSPHORUS 3.5 mg/dL (2.5-4.9); POTASSIUM 3.7 mmol/L (3.5-5.1); SODIUM SERUM 140 mmol/L (136-145); UREA NITROGEN, BLOOD 43 mg/dL (7-18)
[2020-04-29 04:21] LABS: BAND % (MANUAL) 25 % (0.0-5.0); LYMPHOCYTES % (MANUAL) 6 % (16-48); MONOCYTES % (MANUAL) 6 % (0-11.0); NEUTROPHILS % (MANUAL) 63 (42-76)
[2020-04-29 06:01] LABS: TRIGLYCERIDES 118 mg/dL (30-150)
[2020-04-29] MEDS: BLOOD SUGAR DIAGNOSTIC 1 EACH STRIP IN SCH ×4 (06:21→23:26)
[2020-04-29] MEDS: LEVOTHYROXINE SODIUM 100 MCG TABLET GT SCH (06:21)
--- NOTE | 2020-04-29 06:44 | NUR ---
Patient remains in no acute distress in bed. Patient did not have any significant change in condition during shift. all needs met, all orders carried out. Wound care performed per orders. turn and repositioned q2h. Patient remains on cherrie @ 0.5 and D10W. Per pharmacy patient will be placed on TPN this AM. Patient tolerated vent setting well. Trach care performed and patient tolerated well. all safety measures ensured and carried out. Skin check performed with Dl QUILES. will endorse care to Dl QUILES for continuity of care.
[2020-04-29] MEDS: PHENYLEPHRINE 100 MG in IV NS 0.9% 240 ML IV PRN (07:23)
[2020-04-29] MEDS ORDERED: FEE TPN 1 MIN EA MC ONE (07:47)
[2020-04-29] MEDS ORDERED: TPN BAG #2 IV PRN ×4 (08:00→21:00)
[2020-04-29] MEDS: LACTULOSE 10 G/15 ML UDC (PYXIS) GT SCH ×2 (08:05→16:47)
[2020-04-29] MEDS: CALCIUM POLYCARBOPHIL 625 MG TABLET GT SCH ×2 (08:05→16:47)
[2020-04-29] MEDS: MULTIVITAMINS,THERAGRAN 1 UDTAB TABLET GT SCH (08:06)
[2020-04-29] MEDS: GLYCOPYRROLATE 1 MG TABLET GT SCH ×3 (08:06→16:47)
[2020-04-29] MEDS: METOCLOPRAMIDE HCL 10 MG TABLET GT SCH ×3 (08:06→16:47)
[2020-04-29] MEDS: HYDROCORTISONE SOD SUCCINATE 100 MG/2 ML VIAL IV SCH (08:06)
[2020-04-29] MEDS: CITALOPRAM HYDROBROMIDE 10 MG TABLET GT SCH (08:06)
[2020-04-29] MEDS: ASCORBIC ACID 500 MG TABLET GT SCH (08:06)
[2020-04-29] MEDS: PANTOPRAZOLE 40 MG VIAL IV SCH (08:06)
[2020-04-29] MEDS: PROSOURCE / PROSTAT (PYXIS) 30 ML UDC GT SCH ×3 (08:07→16:48)
[2020-04-29] MEDS: CLOTRIMAZOLE 1% 15 GM TUBE TP SCH ×2 (08:08→16:48)
[2020-04-29] MEDS: MUPIROCIN OINT 2% 22 GM TUBE SCH ×2 (08:08→20:36)
[2020-04-29] MEDS: HYDROGEL DRESSING 90 GM TUBE TP SCH (08:08)
[2020-04-29] MEDS: ERYTHROMYCIN ETHYLSUCCINATE 200 MG/5 ML SUSPENSION GT SCH ×3 (08:10→16:47)
[2020-04-29] MEDS: HEPARIN SODIUM, PORCINE 5000 UNITS/1 ML VIAL SQ SCH ×2 (08:12→20:37)
[2020-04-29] MEDS ORDERED: DIATR MEGLU/DIATRIZOATE SODIUM 30 ML BOTTLE (GASTROGRAPHIN) ONE (08:34)
--- NOTE | 2020-04-29 09:20 | NUR ---
received pt from cage shift manager, alert, follows simple commands at times, SR, T/V/P chronic, sat well, lungs partially congested, some non pitting edema SI[place] and LE, GT clamped, NG to suction, R side 2JPs, midabdominal incision, no bleeding noted, v/s stable, no pain, pt turned and repositioned.
[2020-04-29] MEDS: HYDROMORPHONE 1 MG/1 ML DISP.SYRIN IV PRN ×3 (09:47→23:15)
[2020-04-29] MEDS ORDERED: TPN BAG #1 IV PRN ×6 (10:00)
[2020-04-29] MEDS: FAT EMULSION 20% 500 ML in PREMIX 1 EA IV SCH (14:34)
--- NOTE | 2020-04-29 16:07 | NUR ---
pt is resting in the bed, alert, follows simple commands, SR, on TPN and Lipids, receiving levo at 0.2mcg, had HD 2000 out, NG to LIS, v/s stable, c/o pain, Dilaudid 1mg ivp given, pt cleaned, changed and repositioned.
[2020-04-29] MEDS: MEROPENEM 500 MG in IV NS 0.9% 50 ML IV SCH (16:46)
[2020-04-29] MEDS: MICAFUNGIN SODIUM 100 MG in IV NS 0.9% 100 ML IV SCH (17:18)
[2020-04-29] MEDS ORDERED: DOSING PER PHARMACY-AMIKACI IV XX PRN (17:30)
[2020-04-29] MEDS: VANCOMYCIN 500 MG in IV D5W 100 ML IV PRN (17:35)
[2020-04-29] MEDS ORDERED: FEE PK DOSING 1 MIN EA MC ONE (18:01)
--- NOTE | 2020-04-29 20:00 | NUR ---
Received patient from day shift patient resting easily awakened.VS stable.SR Per monitor.Neosynephrine gtt infusing at 0.1 mcg,TPN @ 75 ml/hr,Lipids @ 21 ml/hr.Tolerating vent settings via trach.Denies pain.NPO status with L NGT to LIWS draining greenish output.GT clamped.Abdomen soft BS hypoactive. Abdominal dressing c/d/i.KIRK X2 to right side of abdomen compressed to negative pressure draining serous fluid.Turned and repositioned.
[2020-04-29] MEDS: AMIKACIN 450 MG in IV D5W 100 ML IV PRN (20:03)
[2020-04-30] VITALS (49 sets, daily range): BP systolic 102–144; BP diastolic 52–94
[2020-04-30] MEDS: IPRATROPIUM NEB FS 0.5 MG/2.5 ML AMPUL.NEB NEB SCH ×4 (00:50→19:33)
[2020-04-30] MEDS: IV NS 0.9% 250 ML IV PRN (03:42)
[2020-04-30] MEDS: HYDROMORPHONE 1 MG/1 ML DISP.SYRIN IV PRN ×5 (04:01→22:52)
[2020-04-30 05:03] LABS: BASOPHILS % (AUTO) 0.2 % (0.0-2.0); EOSINOPHILS % (AUTO) 0.5 % (0.0-6.0); HEMATOCRIT 33 % (33-45); HEMOGLOBIN 10.2 g/dL (11.5-14.8); LYMPHOCYTES # (AUTO) 0.5 /CMM (0.8-4.8); LYMPHOCYTES % (AUTO) 5.6 % (20.0-44.0); MEAN CORPUSCULAR HGB CONC 31 g/dl (31.0-36.0); MEAN CORPUSCULAR VOLUME 120 fL (82-100); MONOCYTES # (AUTO) 0.3 /CMM (0.1-1.30); MONOCYTES % (AUTO) 3.9 % (2.0-12.0); NEUTROPHILS # (AUTO) 7.3 /CMM (1.8-8.9); NEUTROPHILS % (AUTO) 89.8 % (43.0-81.0); PLATELET COUNT (AUTO) 92 /CMM (150-450); RED BLOOD CELL COUNT(AUTO) 2.75 MIL/uL (4.0-5.2); WHITE BLOOD COUNT (AUTO) 8.2 K/uL (4.3-11.0)
[2020-04-30 05:12] LABS: CALCIUM, SERUM 8.7 mg/dL (8.5-10.1); CARBON DIOXIDE 28 mmol/L (21-32); CHLORIDE 101 mmol/L (98-107); CREATININE 2.3 mg/dL (0.6-1.3); GLUCOSE 130 mg/dL (74-106); MAGNESIUM 1.9 mg/dL (1.8-2.4); PHOSPHORUS 2.8 mg/dL (2.5-4.9); POTASSIUM 3.6 mmol/L (3.5-5.1); SODIUM SERUM 137 mmol/L (136-145); UREA NITROGEN, BLOOD 35 mg/dL (7-18)
[2020-04-30 05:35] LABS: BAND % (MANUAL) 8 % (0.0-5.0); LYMPHOCYTES % (MANUAL) 10 % (16-48); METAMYELOCYTES % 1 % (0-0); MONOCYTES % (MANUAL) 5 % (0-11.0); MYELOCYTES % 1 % (0-0); NEUTROPHILS % (MANUAL) 75 (42-76)
--- NOTE | 2020-04-30 06:00 | NUR ---
Patient received 2 total doses of Dilaudid for pain.Bathed and complete linens changed. Turned and repositioned.Neosynephrine titrated off @ 0400.FSBS checked Q 6 hrs.WNL. VSS. No acute distress noted. TPN and Lipids infusing well.All needs met.
[2020-04-30] MEDS: BLOOD SUGAR DIAGNOSTIC 1 EACH STRIP IN SCH ×4 (06:16→23:53)
[2020-04-30] MEDS: PANTOPRAZOLE 40 MG VIAL IV SCH (08:13)
[2020-04-30] MEDS: LACTULOSE 10 G/15 ML UDC (PYXIS) GT SCH ×2 (08:13→16:22)
[2020-04-30] MEDS: HYDROCORTISONE SOD SUCCINATE 100 MG/2 ML VIAL IV SCH (08:13)
[2020-04-30] MEDS: HEPARIN SODIUM, PORCINE 5000 UNITS/1 ML VIAL SQ SCH ×2 (08:15→20:59)
[2020-04-30] MEDS: CITALOPRAM HYDROBROMIDE 10 MG TABLET GT SCH (08:16)
[2020-04-30] MEDS: MULTIVITAMINS,THERAGRAN 1 UDTAB TABLET GT SCH (08:16)
[2020-04-30] MEDS: ASCORBIC ACID 500 MG TABLET GT SCH (08:16)
[2020-04-30] MEDS: GLYCOPYRROLATE 1 MG TABLET GT SCH ×3 (08:16→16:22)
[2020-04-30] MEDS: METOCLOPRAMIDE HCL 10 MG TABLET GT SCH ×3 (08:16→16:22)
[2020-04-30] MEDS: CLOTRIMAZOLE 1% 15 GM TUBE TP SCH ×2 (08:17→16:37)
[2020-04-30] MEDS: HYDROGEL DRESSING 90 GM TUBE TP SCH (08:17)
[2020-04-30] MEDS: MUPIROCIN OINT 2% 22 GM TUBE SCH ×2 (08:17→20:58)
[2020-04-30] MEDS: LEVOTHYROXINE SODIUM 100 MCG TABLET GT SCH (08:20)
[2020-04-30] MEDS: ERYTHROMYCIN ETHYLSUCCINATE 200 MG/5 ML SUSPENSION GT SCH ×3 (08:20→16:22)
[2020-04-30] MEDS: CALCIUM POLYCARBOPHIL 625 MG TABLET GT SCH ×2 (08:20→16:22)
[2020-04-30] MEDS: PROSOURCE / PROSTAT (PYXIS) 30 ML UDC GT SCH ×3 (08:22→16:22)
[2020-04-30] MEDS ORDERED: TPN BAG #3 IV PRN ×11 (09:00→10:30)
--- NOTE | 2020-04-30 09:20 | NUR ---
RN NOTE 0715: Received patient awake, able to follow simple commands. With trache to vent, tolerated settings well. With left NGT intact, to LIS, noted with greenish residuals. Still no bowel sound noted. Also per patient, no gas pass yet. With GT intact. CHRISTINA PICC intact. On TPN and Lipids infusing well. 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 RIJ HD cath intact. SBP remained >100, off pressors since 0400 per previous nurse. 0920: AM meds given as ordered. No any significant changes noted at this time. Kept clean, warm and dry. Needs attended. Dilaudid given as ordered.
--- NOTE | 2020-04-30 14:43 | NUR ---
RN NOTE Reapplied CIGAR INSPECTOR restraints on for patient trying to pull out NGT even after telling her not to touch tubings.
[2020-04-30] MEDS: MEROPENEM 500 MG in IV NS 0.9% 50 ML IV SCH (16:22)
[2020-04-30] MEDS: VANCOMYCIN 500 MG in IV D5W 100 ML IV PRN (17:31)
[2020-04-30] MEDS ORDERED: TPN BAG#4 IV PRN ×5 (18:00)
[2020-04-30] MEDS ORDERED: NEPRO 1,000 ML BOTTLE GT PRN (19:00)
--- NOTE | 2020-04-30 20:00 | NUR ---
Received patient awake asking for help wants pain medicine.Medicated as ordered. Oriented x1.SR per monitor.VSS.On full vent support via trach.No acute respiratory distress noted.TPN infusing via CHRISTINA ML site intact.L nares NGT clamped per order. turned and repositioned.
[2020-04-30] MEDS: AMIKACIN 450 MG in IV D5W 100 ML IV PRN (20:17)
[2020-04-30] MEDS: NEPRO 1,000 ML BOTTLE GT PRN (21:00)
[2020-05-01] VITALS (25 sets, daily range): BP systolic 82–153; BP diastolic 33–82
[2020-05-01] MEDS: IPRATROPIUM NEB FS 0.5 MG/2.5 ML AMPUL.NEB NEB SCH ×4 (01:21→19:30)
[2020-05-01] MEDS: MORPHINE SULFATE INJ 2 MG/ML DISP.SYRIN IV PRN ×4 (03:01→23:24)
--- NOTE | 2020-05-01 04:00 | NUR ---
Patient resting was given 2 doses of Dilaudid for pain and 1 dose of Morphine. Noted patient more comfortable with morphine. Turned and repositioned.
[2020-05-01 04:23] LABS: BASOPHILS % (AUTO) 0.1 % (0.0-2.0); EOSINOPHILS % (AUTO) 1.4 % (0.0-6.0); HEMATOCRIT 37 % (33-45); HEMOGLOBIN 11.1 g/dL (11.5-14.8); LYMPHOCYTES # (AUTO) 0.6 /CMM (0.8-4.8); LYMPHOCYTES % (AUTO) 4.2 % (20.0-44.0); MEAN CORPUSCULAR HGB CONC 30 g/dl (31.0-36.0); MEAN CORPUSCULAR VOLUME 119 fL (82-100); MONOCYTES # (AUTO) 0.2 /CMM (0.1-1.30); MONOCYTES % (AUTO) 1.6 % (2.0-12.0); NEUTROPHILS # (AUTO) 13.7 /CMM (1.8-8.9); NEUTROPHILS % (AUTO) 92.7 % (43.0-81.0); PLATELET COUNT (AUTO) 100 /CMM (150-450); RED BLOOD CELL COUNT(AUTO) 3.11 MIL/uL (4.0-5.2); WHITE BLOOD COUNT (AUTO) 14.8 K/uL (4.3-11.0)
[2020-05-01 04:42] LABS: CALCIUM, SERUM 9.2 mg/dL (8.5-10.1); CARBON DIOXIDE 28 mmol/L (21-32); CHLORIDE 102 mmol/L (98-107); CREATININE 2.2 mg/dL (0.6-1.3); GLUCOSE 126 mg/dL (74-106); MAGNESIUM 1.9 mg/dL (1.8-2.4); PHOSPHORUS 2.5 mg/dL (2.5-4.9); POTASSIUM 3.4 mmol/L (3.5-5.1); SODIUM SERUM 137 mmol/L (136-145); UREA NITROGEN, BLOOD 43 mg/dL (7-18)
[2020-05-01 04:56] LABS: BAND % (MANUAL) 18 % (0.0-5.0); LYMPHOCYTES % (MANUAL) 4 % (16-48); MONOCYTES % (MANUAL) 2 % (0-11.0); NEUTROPHILS % (MANUAL) 76 (42-76)
--- NOTE | 2020-05-01 06:10 | NUR ---
Per Remote pharmacist to decrease the rate of TPN to 55 ml/hr since Nepro feeding started at 20 ml/hr.Patient tolerating GT feeding no residual noted. Appears comfortable in bed.Report given to day shift for anthony.And to verify order regarding TPN and Nepro feeding.
[2020-05-01] MEDS: BLOOD SUGAR DIAGNOSTIC 1 EACH STRIP IN SCH ×4 (06:21→23:30)
[2020-05-01] MEDS: LEVOTHYROXINE SODIUM 100 MCG TABLET GT SCH (07:00)
--- NOTE | 2020-05-01 08:50 | NUR ---
PT VOMITED A LARGE AMOUNT OF GREEN BILE AND STOMACH CONTENTS. TUBE FEEDING STOPPED, NG TUBE HOOKED UP TO LIS SUCTION. IMMEDIATE RETURN FROM NG TUBE WAS 800ML. PT STATES SHE FEELS LESS NAUSEA FOLLOWING SUCTION. WILL NOTIFY MD'S.
[2020-05-01] MEDS ORDERED: HYDROCORTISONE SOD SUCCINATE 100 MG/2 ML VIAL IV SCH (09:00)
[2020-05-01] MEDS ORDERED: BACI/NEOM/POLY B OINT PKT 1 UDPKT PACKET TP SCH (09:00)
[2020-05-01] MEDS: CALCIUM POLYCARBOPHIL 625 MG TABLET GT SCH ×2 (09:00→11:56)
[2020-05-01] MEDS: MULTIVITAMINS,THERAGRAN 1 UDTAB TABLET GT SCH (09:00)
[2020-05-01] MEDS: PROSOURCE / PROSTAT (PYXIS) 30 ML UDC GT SCH ×3 (09:00→14:57)
[2020-05-01] MEDS: ERYTHROMYCIN ETHYLSUCCINATE 200 MG/5 ML SUSPENSION GT SCH ×3 (09:00→14:57)
[2020-05-01] MEDS: GLYCOPYRROLATE 1 MG TABLET GT SCH ×3 (09:00→14:57)
[2020-05-01] MEDS: CITALOPRAM HYDROBROMIDE 10 MG TABLET GT SCH (09:00)
[2020-05-01] MEDS: ASCORBIC ACID 500 MG TABLET GT SCH (09:00)
[2020-05-01] MEDS: METOCLOPRAMIDE HCL 10 MG TABLET GT SCH ×3 (09:00→14:57)
[2020-05-01] MEDS: LACTULOSE 10 G/15 ML UDC (PYXIS) GT SCH ×2 (09:00→11:56)
--- NOTE | 2020-05-01 09:14 | NUR ---
PER DR. CONLEY ALL NGT/PEG TUBE MEDS HELD TODAY D/T EMESIS AND LARGE AMOUNT OF STOMACH RESIDUALS.
[2020-05-01] MEDS: PANTOPRAZOLE 40 MG VIAL IV SCH (10:13)
[2020-05-01] MEDS: CLOTRIMAZOLE 1% 15 GM TUBE TP SCH ×2 (10:14→21:28)
[2020-05-01] MEDS: MUPIROCIN OINT 2% 22 GM TUBE SCH ×2 (10:14→21:27)
[2020-05-01] MEDS: HYDROGEL DRESSING 90 GM TUBE TP SCH (10:14)
[2020-05-01] MEDS: HEPARIN SODIUM, PORCINE 5000 UNITS/1 ML VIAL SQ SCH ×2 (10:15→21:26)
[2020-05-01] MEDS ORDERED: TPN BAG#5 IV PRN ×8 (12:00)
[2020-05-01] MEDS: HYDROMORPHONE 1 MG/1 ML DISP.SYRIN IV PRN ×2 (13:03→13:11)
[2020-05-01] MEDS: FAT EMULSION 20% 500 ML in PREMIX 1 EA IV SCH (15:38)
[2020-05-01] MEDS: MEROPENEM 500 MG in IV NS 0.9% 50 ML IV SCH (17:34)
[2020-05-01] MEDS: METOCLOPRAMIDE HCL 10 MG/2 ML VIAL IV SCH ×2 (17:34→23:49)
--- NOTE | 2020-05-01 18:39 | NUR ---
END OF SHIFT NOTE: PT HAD A MILDLY EVENTFUL DAY. THIS AT AT 0800 PT VOMITED LARGE AMOUNT OF GREEN LIQUID. TUBE FEEDING TURNED OFF, NG HOOKED TO LIS SUCTION, 800ML OUT IMMEDIATELY. TOTAL OUTPUT OF 1600ML OF GREEN/BROWN LIQUID FROM NG TUBE THIS SHIFT. NO DIALYSIS TODAY. TPN TURNED UP TO 75MLS/HR PER MD ORDERS SINCE TF IS OFF. TMAX THIS SHIFT WAS 98.5 AX. SURGICAL TURKEY CLEANER KEMAL TOOK OUT BOTH KIRK DRAINS AT 1530, TOTAL OUTPUT FROM DRAIN #1 = 40ML, #2 = 50. GAUZE DRESSING APPLIED TO DRAIN SITES, OK TO CHANGE DRESSINGS NEEDED. ORDER GIVEN TO LEAVE PT IN ICU TODAY BY DR. CONLEY D/T BORDERLINE BLOOD PRESSURE. PT CHECKED ON HOURLY AND PRN BY NURSING STAFF.
--- NOTE | 2020-05-01 19:30 | NUR ---
OPERATIONS BUSINESS PARTNER OPENING NOTES, RECEIVED PATIENT AWAKE, A/O X4. WITH TRACH TO VENT, TOLERATING SETTING WELL, NO SOB OR ACUTE DISTRESS NOTED AT THIS TIME. PATIENT HAS LEFT NARES NG TUBE FUR FARMER TO LIS SUCTION, SUCTIONING GREENING LIQUID. GT INTACT BUT NO FEEDING PER MD ORDER AND ALL GT MEDS ARE ON HOLD SENSE DAY SHIFT DUE TO PATIENTS VOMITING DURING DAY SHIFT. CHRISTINA PICC LINE IS INTACT AND PATENT, RUNNING TPN @75 ML/HR AND LIPIDS @21 ML/HR. RIJ HD CATH INTACT. COVID (-) AND ISOLATION FOR MRSA NARES AND SPUTUM ACINETOBACTER. SURGICAL DRESSINGS ON ABD ARE CLEAN/DRY/INTACT, WILL MONITOR FOR ANY CHANGES. BED IN LOCKED LOW POSITION CALL LIGHT WITHIN REACH WILL CONTINUE TO MONITOR THE PATIENT CLOSELY.
[2020-05-01] MEDS: Z GUARD REMEDY 2 OZ OINT TP PRN (21:27)
--- NOTE | 2020-05-01 22:00 | NUR ---
PATIENT TOOK O HER NG TUBE AT 2100. CHARGE NURSE NOTIFIED AND NEW 14FR NG TUBE WAS PLACED AT 2200 IN RIGHT NARES. DARLIN SOFT WRISTBAND WAS REORDER AD PLACED ON PATIENT DUE TO REMOVAL OF TUBES. VSS NOS S/S OF ACUTE DISTRESS AT THIS TIME. WILL CONTINUE TO MONITOR THE PATENT CLOSELY
[2020-05-01] MEDS ORDERED: TPN BAG#6 IV PRN ×6 (23:00)
[2020-05-02] VITALS (24 sets, daily range): BP systolic 97–126; BP diastolic 46–77
[2020-05-02] MEDS: IPRATROPIUM NEB FS 0.5 MG/2.5 ML AMPUL.NEB NEB SCH ×4 (01:24→19:51)
[2020-05-02 04:18] LABS: BASOPHILS % (AUTO) 0.2 % (0.0-2.0); EOSINOPHILS % (AUTO) 2.3 % (0.0-6.0); HEMATOCRIT 30 % (33-45); HEMOGLOBIN 9.5 g/dL (11.5-14.8); LYMPHOCYTES # (AUTO) 0.6 /CMM (0.8-4.8); LYMPHOCYTES % (AUTO) 3.6 % (20.0-44.0); MEAN CORPUSCULAR HGB CONC 31 g/dl (31.0-36.0); MEAN CORPUSCULAR VOLUME 120 fL (82-100); MONOCYTES # (AUTO) 0.3 /CMM (0.1-1.30); NEUTROPHILS # (AUTO) 15.2 /CMM (1.8-8.9); NEUTROPHILS % (AUTO) 91.9 % (43.0-81.0); PLATELET COUNT (AUTO) 92 /CMM (150-450); RED BLOOD CELL COUNT(AUTO) 2.53 MIL/uL (4.0-5.2); WHITE BLOOD COUNT (AUTO) 16.5 K/uL (4.3-11.0)
[2020-05-02] MEDS: LORAZEPAM INJ 2 MG/ML VIAL IV PRN (04:24)
[2020-05-02 04:29] LABS: CALCIUM, SERUM 8.5 mg/dL (8.5-10.1); CARBON DIOXIDE 26 mmol/L (21-32); CHLORIDE 102 mmol/L (98-107); CREATININE 2.6 mg/dL (0.6-1.3); GLUCOSE 93 mg/dL (74-106); MAGNESIUM 1.8 mg/dL (1.8-2.4); PHOSPHORUS 1.8 mg/dL (2.5-4.9); POTASSIUM 3.5 mmol/L (3.5-5.1); SODIUM SERUM 135 mmol/L (136-145); UREA NITROGEN, BLOOD 59 mg/dL (7-18)
[2020-05-02 05:11] LABS: BAND % (MANUAL) 12 % (0.0-5.0); LYMPHOCYTES % (MANUAL) 3 % (16-48); MONOCYTES % (MANUAL) 2 % (0-11.0); NEUTROPHILS % (MANUAL) 83 (42-76)
[2020-05-02] MEDS: METOCLOPRAMIDE HCL 10 MG/2 ML VIAL IV SCH ×4 (05:44→23:38)
[2020-05-02] MEDS: BLOOD SUGAR DIAGNOSTIC 1 EACH STRIP IN SCH ×4 (06:28→23:39)
[2020-05-02] MEDS: LEVOTHYROXINE SODIUM 100 MCG TABLET GT SCH (07:00)
--- NOTE | 2020-05-02 07:14 | NUR ---
CLOTHING CUTTER CLOSING NOTES, PATIENT SLEEPY, A/O X4. WITH TRACH TO VENT, TOLERATING SETTING WELL, NO SOB OR ACUTE DISTRESS NOTED AT THIS TIME. PATIENT HAS RIGHT NARES NG TUBE LOIN TRIMMER TO LIS SUCTION, SUCTIONING GREENING LIQUID. GT INTACT BUT NO FEEDING PER MD ORDER AND ALL GT MEDS ARE ON HOLD DUE TO PATIENTS VOMITING. CHRISTINA PICC LINE IS INTACT AND PATENT, RUNNING TPN @75 ML/HR AND LIPIDS @21 ML/HR. RIJ HD CATH INTACT. COVID (-) AND ISOLATION FOR MRSA NARES AND SPUTUM ACINETOBACTER. SURGICAL DRESSINGS ON ABD ARE CLEAN/DRY/INTACT, WILL MONITOR FOR ANY CHANGES. BED IN LOCKED LOW POSITION CALL LIGHT WITHIN REACH, ENDORSED THE PATIENT TO AM RN FOR EVELYN.
--- NOTE | 2020-05-02 07:15 | NUR ---
RN INITIAL NOTES RECEIVED PT AWAKE, A/0. TRACH IN PLACE, TOLERATING VENT. NO RESPIRATORY DSITRESS NOTED. NO SOB NOTED. DENIES ANY PAIN. NGT IN PLACE CONNECTED TO LOW INTERMITTENT SUCTION. CHRISTINA PICC AND RIJ HD CATH IN PLACE. TPN AND LIPIDS INFUSING. NO ASE NOTED. J-TUBE CLAMPED. BLE ELEVATED. PT COMFORTABLE. WILL MONITOR
[2020-05-02] MEDS: LACTULOSE 10 G/15 ML UDC (PYXIS) GT SCH ×2 (08:07→21:26)
[2020-05-02] MEDS: ERYTHROMYCIN ETHYLSUCCINATE 200 MG/5 ML SUSPENSION GT SCH ×4 (08:07→16:08)
[2020-05-02] MEDS: CALCIUM POLYCARBOPHIL 625 MG TABLET GT SCH ×2 (08:07→16:08)
[2020-05-02] MEDS: PROSOURCE / PROSTAT (PYXIS) 30 ML UDC GT SCH ×3 (08:07→16:08)
[2020-05-02] MEDS: GLYCOPYRROLATE 1 MG TABLET GT SCH ×3 (08:07→16:08)
[2020-05-02] MEDS: ASCORBIC ACID 500 MG TABLET GT SCH (08:07)
[2020-05-02] MEDS: MULTIVITAMINS,THERAGRAN 1 UDTAB TABLET GT SCH (08:07)
[2020-05-02] MEDS: CITALOPRAM HYDROBROMIDE 10 MG TABLET GT SCH (08:07)
[2020-05-02] MEDS: MUPIROCIN OINT 2% 22 GM TUBE SCH ×2 (08:08→21:10)
[2020-05-02] MEDS: HYDROGEL DRESSING 90 GM TUBE TP SCH (08:08)
[2020-05-02] MEDS: CLOTRIMAZOLE 1% 15 GM TUBE TP SCH ×2 (08:09→21:10)
[2020-05-02] MEDS: HEPARIN SODIUM, PORCINE 5000 UNITS/1 ML VIAL SQ SCH ×2 (08:44→21:10)
[2020-05-02] MEDS: PANTOPRAZOLE 40 MG VIAL IV SCH (08:44)
--- NOTE | 2020-05-02 09:30 | NUR ---
RN NOTES 0900 SEEN AND EXAMINED BY DR LEDBETTER. NO RESPIRATORY DISTRESS NOTED. NO SOB NOTED. NO SIGNS OF PAIN NOTED. MD ORDERED TO PUT PEEP TO +5. HOB ELEVATED. WILL CLOSELY MONITOR 0930 SEEN AND EXAMINED BY DR CONLEY. AWARE OF LAB VALUES. NGT ON SUCTION, J-TUBE CLAMPED. TPN INFUSING. ABDOMINAL DRESSINGS MONITORING FOR DRAINAGE. WILL CONTINUE TO MONITOR
[2020-05-02] MEDS ORDERED: TPN BAG #8 IV PRN ×6 (10:30)
[2020-05-02] MEDS ORDERED: TPN BAG #7 IV PRN ×8 (15:00)
[2020-05-02] MEDS: MEROPENEM 500 MG in IV NS 0.9% 50 ML IV SCH (16:51)
--- NOTE | 2020-05-02 18:28 | NUR ---
RN CLOSING NOTES NO SIGNIFICANT CHANGE NOTED. NO RESPIRATORY DISTRESS NOTED. NO SOB NOTED. DENIES ANY PAIN. KEPT COMFORTABLE. TX PROVIDED ORDERED. KEPT CLEAN AND DRY. BLE ELEVATED. WILL ENDORSE FOR CONTINUITY OF CARE
--- NOTE | 2020-05-02 19:45 | NUR ---
QA AUTOMATION ENGINEER OPENING NOTES, RECEIVED PATIENT AWAKE, A/O X4. WITH TRACH TO VENT, TOLERATING SETTING WELL, NO SOB OR ACUTE DISTRESS NOTED AT THIS TIME. PATIENT HAS RIGHT NARES NG TUBE PUMP TECHNICIAN TO LOW SUCTION, SUCTIONING GREENING LIQUID. GT INTACT AND CLAMPED. CHRISTINA PICC LINE IS INTACT AND PATENT, RUNNING TPN @75 ML/HR . RIJ HD CATH INTACT. COVID (-) AND ISOLATION FOR MRSA NARES AND SPUTUM ACINETOBACTER. SURGICAL DRESSINGS ON ABD ARE CLEAN/DRY/INTACT, WILL MONITOR FOR ANY CHANGES. BED IN LOCKED/LOW POSITION. CALL LIGHT WITHIN REACH, WILL CONTINUE TO MONITOR.
--- NOTE | 2020-05-02 23:30 | NUR ---
1930- PATIENTS NGT WAS CLAMPED 2 HOURS BEFORE ADMINISTERING THE LACTULOSE 20G 2330- THE NGT WAS UNCLAMPED AND CONNECTED TO LOW SUCTION 2 HOURS AFTER THE ADMINISTERING OF LACTULOSE. VSS PATIENT IS CALM AND COOPERATIVE. NO SOB OR DISTRESS AT THIS TIME.
[2020-05-03] VITALS (25 sets, daily range): BP systolic 93–121; BP diastolic 41–62
[2020-05-03] MEDS: IPRATROPIUM NEB FS 0.5 MG/2.5 ML AMPUL.NEB NEB SCH ×4 (01:26→19:30)
[2020-05-03] MEDS ORDERED: TPN BAG #8 IV PRN ×6 (03:00)
[2020-05-03 04:02] LABS: EOSINOPHILS % (AUTO) 1.3 % (0.0-6.0); HEMATOCRIT 31 % (33-45); HEMOGLOBIN 9.7 g/dL (11.5-14.8); LYMPHOCYTES # (AUTO) 0.7 /CMM (0.8-4.8); MEAN CORPUSCULAR HGB CONC 31 g/dl (31.0-36.0); MEAN CORPUSCULAR VOLUME 117 fL (82-100); MONOCYTES # (AUTO) 0.7 /CMM (0.1-1.30); MONOCYTES % (AUTO) 3.9 % (2.0-12.0); NEUTROPHILS # (AUTO) 15.5 /CMM (1.8-8.9); NEUTROPHILS % (AUTO) 90.8 % (43.0-81.0); PLATELET COUNT (AUTO) 116 /CMM (150-450); WHITE BLOOD COUNT (AUTO) 17.1 K/uL (4.3-11.0)
[2020-05-03 04:15] LABS: CALCIUM, SERUM 9.2 mg/dL (8.5-10.1); CARBON DIOXIDE 25 mmol/L (21-32); CHLORIDE 99 mmol/L (98-107); CREATININE 2.9 mg/dL (0.6-1.3); GLUCOSE 83 mg/dL (74-106); MAGNESIUM 1.9 mg/dL (1.8-2.4); PHOSPHORUS 2.5 mg/dL (2.5-4.9); SODIUM SERUM 134 mmol/L (136-145); UREA NITROGEN, BLOOD 74 mg/dL (7-18)
[2020-05-03] MEDS: METOCLOPRAMIDE HCL 10 MG/2 ML VIAL IV SCH ×4 (05:41→23:25)
[2020-05-03] MEDS: BLOOD SUGAR DIAGNOSTIC 1 EACH STRIP IN SCH ×4 (05:53→23:33)
[2020-05-03] MEDS: LEVOTHYROXINE SODIUM 100 MCG TABLET GT SCH (07:00)
--- NOTE | 2020-05-03 07:09 | NUR ---
CUSHION ASSEMBLER CLOSING NOTES, PATIENT SLEEPING, A/O X4. WITH TRACH TO VENT, TOLERATING SETTING WELL, NO SOB OR ACUTE DISTRESS NOTED AT THIS TIME. PATIENT HAS RIGHT NARES NG TUBE FENCE POST DRIVER TO LOW SUCTION, SUCTIONING GREENING LIQUID. GT INTACT AND CLAMPED. CHRISTINA PICC LINE IS INTACT AND PATENT, RUNNING TPN @75 ML/HR . RIJ HD CATH INTACT. COVID (-) AND ISOLATION FOR MRSA NARES AND SPUTUM ACINETOBACTER. SURGICAL DRESSINGS ON ABD ARE CLEAN/DRY/INTACT. BED IN LOCKED/LOW POSITION. ENDORSED THE PATIENT TO AM RN FOR EVELYN.
--- NOTE | 2020-05-03 07:20 | NUR ---
RN INITIAL NOTES RECEIVED PT AWAKE, A/0. TRACH IN PLACE, TOLERATING VENT. NO RESPIRATORY DISTRESS NOTED. NO SOB NOTED. DENIES ANY PAIN. NGT IN PLACE CONNECTED TO LOW INTERMITTENT SUCTION. CHRISTINA PICC AND RIJ HD CATH IN PLACE. TPN INFUSING, TOLERATING WELL. J-TUBE CLAMPED. BLE ELEVATED. PT COMFORTABLE. WILL MONITOR
[2020-05-03] MEDS: CITALOPRAM HYDROBROMIDE 10 MG TABLET GT SCH (08:06)
[2020-05-03] MEDS: PROSOURCE / PROSTAT (PYXIS) 30 ML UDC GT SCH ×3 (08:06→16:39)
[2020-05-03] MEDS: ASCORBIC ACID 500 MG TABLET GT SCH (08:06)
[2020-05-03] MEDS: CALCIUM POLYCARBOPHIL 625 MG TABLET GT SCH ×2 (08:06→16:39)
[2020-05-03] MEDS: GLYCOPYRROLATE 1 MG TABLET GT SCH ×3 (08:06→16:39)
[2020-05-03] MEDS: MULTIVITAMINS,THERAGRAN 1 UDTAB TABLET GT SCH (08:06)
[2020-05-03] MEDS: MUPIROCIN OINT 2% 22 GM TUBE SCH ×2 (08:10→20:22)
[2020-05-03] MEDS: HYDROGEL DRESSING 90 GM TUBE TP SCH (08:11)
[2020-05-03] MEDS: CLOTRIMAZOLE 1% 15 GM TUBE TP SCH ×2 (08:11→20:23)
[2020-05-03] MEDS: LACTULOSE 10 G/15 ML UDC (PYXIS) GT SCH ×2 (08:13→16:58)
[2020-05-03] MEDS: PANTOPRAZOLE 40 MG VIAL IV SCH (08:13)
[2020-05-03] MEDS: HEPARIN SODIUM, PORCINE 5000 UNITS/1 ML VIAL SQ SCH (08:14)
[2020-05-03] MEDS: ERYTHROMYCIN ETHYLSUCCINATE 200 MG/5 ML SUSPENSION GT SCH ×2 (13:00→16:39)
[2020-05-03] MEDS: FAT EMULSION 20% 500 ML in PREMIX 1 EA IV SCH (13:48)
[2020-05-03] MEDS ORDERED: TPN BAG #9 IV PRN ×16 (15:00)
[2020-05-03] MEDS: MEROPENEM 500 MG in IV NS 0.9% 50 ML IV SCH (16:58)
--- NOTE | 2020-05-03 19:30 | NUR ---
DECK SCALER OPENING NOTES., RECEIVED PATIENT SLEEPING, A/0. TRACH IN PLACE, TOLERATING VENT. NO SOB OR RESPIRATORY DISTRESS NOTED. NGT IN PLACE CONNECTED TO LOW INTERMITTENT SUCTION. CHRISTINA PICC RUNNING TPA @76 ML/HR AND LIPIDS AT 21 ML/HR, TOLERATING WELL, RIJ HD CATH IN PLACE. TPN INFUSING. SOFT WRIST RESTRAINERS IN PLACE FOR SAFETY. J-TUBE CLAMPED. HOB ELEVATED, CALL LIGHT WITHIN REACH, BED IN LOW/LOCKED POSITION, WILL CONTINUE TO MONITOR.
[2020-05-04] VITALS (25 sets, daily range): BP systolic 84–116; BP diastolic 38–58
[2020-05-04] MEDS: IPRATROPIUM NEB FS 0.5 MG/2.5 ML AMPUL.NEB NEB SCH ×4 (01:03→19:30)
[2020-05-04 04:19] LABS: BASOPHILS % (AUTO) 0.2 % (0.0-2.0); EOSINOPHILS % (AUTO) 1.1 % (0.0-6.0); HEMATOCRIT 28 % (33-45); HEMOGLOBIN 8.7 g/dL (11.5-14.8); LYMPHOCYTES # (AUTO) 0.6 /CMM (0.8-4.8); LYMPHOCYTES % (AUTO) 3.7 % (20.0-44.0); MEAN CORPUSCULAR HGB CONC 31 g/dl (31.0-36.0); MEAN CORPUSCULAR VOLUME 118 fL (82-100); MONOCYTES # (AUTO) 0.7 /CMM (0.1-1.30); MONOCYTES % (AUTO) 4.3 % (2.0-12.0); NEUTROPHILS # (AUTO) 15.1 /CMM (1.8-8.9); NEUTROPHILS % (AUTO) 90.7 % (43.0-81.0); PLATELET COUNT (AUTO) 142 /CMM (150-450); WHITE BLOOD COUNT (AUTO) 16.7 K/uL (4.3-11.0)
[2020-05-04 04:58] LABS: CALCIUM, SERUM 8.8 mg/dL (8.5-10.1); CARBON DIOXIDE 26 mmol/L (21-32); CHLORIDE 98 mmol/L (98-107); CREATININE 3.4 mg/dL (0.6-1.3); GLUCOSE 89 mg/dL (74-106); PHOSPHORUS 2.8 mg/dL (2.5-4.9); SODIUM SERUM 132 mmol/L (136-145)
[2020-05-04 05:26] LABS: UREA NITROGEN, BLOOD 88 mg/dL (7-18)
[2020-05-04] MEDS: METOCLOPRAMIDE HCL 10 MG/2 ML VIAL IV SCH ×3 (05:54→17:10)
[2020-05-04] MEDS: BLOOD SUGAR DIAGNOSTIC 1 EACH STRIP IN SCH ×3 (05:54→17:10)
--- NOTE | 2020-05-04 06:56 | NUR ---
KNIT GOODS WASHER CLOSING NOTES., PATIENT STAYED IN STABLE CONDITION DURING AUTOMOTIVE MECHANIC. CURRENTLY SLEEPING, A/0. TRACH IN PLACE, TOLERATING VENT. NO SOB OR RESPIRATORY DISTRESS NOTED. NGT IN PLACE CONNECTED TO LOW INTERMITTENT SUCTION. CHRISTINA PICC RUNNING TPA @76 ML/HR AND LIPIDS AT 21 ML/HR, TOLERATING WELL, RIJ HD CATH IN PLACE. TPN INFUSING. SOFT WRIST RESTRAINERS IN PLACE FOR SAFETY. J-TUBE CLAMPED. HOB ELEVATED, CALL LIGHT WITHIN REACH, BED IN LOW/LOCKED POSITION, WILL ENDORSE THE PATIENT TO AM RN FOR EVELYN.
[2020-05-04] MEDS: LEVOTHYROXINE SODIUM 100 MCG TABLET GT SCH (07:00)
--- NOTE | 2020-05-04 07:10 | NUR ---
RN INITIAL NOTES RECEIVED PT AWAKE, A/0. TRACH IN PLACE, TOLERATING VENT. NO RESPIRATORY DISTRESS NOTED. NO SOB NOTED. DENIES ANY PAIN. NGT IN PLACE CONNECTED TO LOW INTERMITTENT SUCTION. CHRISTINA PICC AND RIJ HD CATH IN PLACE. TPN AND LIPID INFUSING. J-TUBE CLAMPED. BLE ELEVATED. PT COMFORTABLE. WILL MONITOR
[2020-05-04] MEDS: ASCORBIC ACID 500 MG TABLET GT SCH (08:15)
[2020-05-04] MEDS: PROSOURCE / PROSTAT (PYXIS) 30 ML UDC GT SCH ×3 (08:15→16:47)
[2020-05-04] MEDS: GLYCOPYRROLATE 1 MG TABLET GT SCH ×3 (08:15→16:47)
[2020-05-04] MEDS: MULTIVITAMINS,THERAGRAN 1 UDTAB TABLET GT SCH (08:15)
[2020-05-04] MEDS: CITALOPRAM HYDROBROMIDE 10 MG TABLET GT SCH (08:15)
[2020-05-04] MEDS: ERYTHROMYCIN ETHYLSUCCINATE 200 MG/5 ML SUSPENSION GT SCH ×3 (08:15→16:46)
[2020-05-04] MEDS: CALCIUM POLYCARBOPHIL 625 MG TABLET GT SCH ×2 (08:15→16:46)
[2020-05-04] MEDS: CLOTRIMAZOLE 1% 15 GM TUBE TP SCH ×2 (08:16→21:03)
[2020-05-04] MEDS: MUPIROCIN OINT 2% 22 GM TUBE SCH ×2 (08:16→21:03)
[2020-05-04] MEDS: HYDROGEL DRESSING 90 GM TUBE TP SCH (08:16)
[2020-05-04] MEDS: PANTOPRAZOLE 40 MG VIAL IV SCH (08:43)
[2020-05-04] MEDS: LACTULOSE 10 G/15 ML UDC (PYXIS) GT SCH ×2 (08:43→16:49)
[2020-05-04] MEDS ORDERED: TPN BAG #10 IV PRN ×8 (13:00)
[2020-05-04] MEDS: MEROPENEM 500 MG in IV NS 0.9% 50 ML IV SCH (16:49)
--- NOTE | 2020-05-04 20:00 | NUR ---
Received patient from day shift A/O in no acute distress.With trach to vent ,tolerating vent settings well.SR and normotensive.NGT R nares to LCIS draining greenish output.JT clamped. Mid abdominal incision with lauren intact and well approximated open to air.Anuric with HD cath to RIJ intact.TPN infusing via CHRISTINA PICC Line site intact.Patient denies pain.Turned and repositioned.Will continue to monitor.
--- NOTE | 2020-05-04 21:10 | NUR ---
Patient resting .VSS.Due medications administered.Report given to Stas Celisfor continuity of care.
--- NOTE | 2020-05-04 21:15 | NUR ---
RN NOTES RECIEVED REPORT TO MS CLYDE QUILES FOR EVELYN, PT IS AWAKE X4 ON VENT/TRACH SETTING ORDERED SPO2 100%, NO DISTRESS NOTED, WITH R NARES NGT CONNECTED TO LOW INTERMITTENT SUCTION, ON BEDISDE MONITOR WITH CURRENT READING SINUS RHYTHM 80'S-90'S WITH CHRISTINA PICC LINE PATENT WITH ONGOING TPN RUNNING @ 76ML/HR OREDERED WITH RIJ HD CATH DRESSING IS INTACT, LAST HD 04/30 WITH 2L OUTPUT, SAFETY MEASURE MAINTAINED WILL CONT TO MONITOR
[2020-05-05] VITALS (21 sets, daily range): BP systolic 91–138; BP diastolic 45–85
[2020-05-05] MEDS: IPRATROPIUM NEB FS 0.5 MG/2.5 ML AMPUL.NEB NEB SCH ×4 (01:02→20:14)
[2020-05-05] MEDS: METOCLOPRAMIDE HCL 10 MG/2 ML VIAL IV SCH ×4 (01:26→17:56)
[2020-05-05] MEDS: BLOOD SUGAR DIAGNOSTIC 1 EACH STRIP IN SCH ×4 (01:26→17:56)
[2020-05-05] MEDS: Z GUARD REMEDY 2 OZ OINT TP PRN (01:27)
[2020-05-05] MEDS: IV NS 0.9% 250 ML IV PRN ×2 (01:48→20:04)
[2020-05-05 05:58] LABS: CALCIUM, SERUM 9.3 mg/dL (8.5-10.1); CARBON DIOXIDE 25 mmol/L (21-32); CHLORIDE 97 mmol/L (98-107); CREATININE 3.8 mg/dL (0.6-1.3); GLUCOSE 81 mg/dL (74-106); MAGNESIUM 2.2 mg/dL (1.8-2.4); PHOSPHORUS 3.4 mg/dL (2.5-4.9); POTASSIUM 4.2 mmol/L (3.5-5.1); SODIUM SERUM 131 mmol/L (136-145)
[2020-05-05] MEDS: LEVOTHYROXINE SODIUM 100 MCG TABLET GT SCH (07:00)
[2020-05-05 08:25] LABS: UREA NITROGEN, BLOOD 103 mg/dL (7-18)
[2020-05-05] MEDS: CALCIUM POLYCARBOPHIL 625 MG TABLET GT SCH ×2 (08:40→15:13)
[2020-05-05] MEDS: CITALOPRAM HYDROBROMIDE 10 MG TABLET GT SCH (08:40)
[2020-05-05] MEDS: ERYTHROMYCIN ETHYLSUCCINATE 200 MG/5 ML SUSPENSION GT SCH ×3 (08:40→15:13)
[2020-05-05] MEDS: ASCORBIC ACID 500 MG TABLET GT SCH (08:41)
[2020-05-05] MEDS: PROSOURCE / PROSTAT (PYXIS) 30 ML UDC GT SCH ×3 (08:41→15:13)
[2020-05-05] MEDS: MULTIVITAMINS,THERAGRAN 1 UDTAB TABLET GT SCH (08:41)
[2020-05-05] MEDS: GLYCOPYRROLATE 1 MG TABLET GT SCH ×3 (08:41→15:13)
[2020-05-05] MEDS: LACTULOSE 10 G/15 ML UDC (PYXIS) GT SCH ×2 (09:00→19:24)
[2020-05-05] MEDS ORDERED: DIATR MEGLU/DIATRIZOATE SODIUM 120 ML BOTTLE (GASTROGRAPHIN) ONE (09:26)
--- NOTE | 2020-05-05 10:00 | NUR ---
NG TUBE CLAMPED FOR SMALL BOWEL SERIES. 600ML OF NG CONTRAST INSTILLED INTO NGT. AM LACTULOSE DOSE HELD D/T SBS.
[2020-05-05] MEDS: PANTOPRAZOLE 40 MG VIAL IV SCH (10:36)
[2020-05-05] MEDS: MUPIROCIN OINT 2% 22 GM TUBE SCH ×2 (10:37→21:00)
[2020-05-05] MEDS: MORPHINE SULFATE INJ 2 MG/ML DISP.SYRIN IV PRN (10:37)
[2020-05-05] MEDS: CLOTRIMAZOLE 1% 15 GM TUBE TP SCH ×2 (10:38→21:00)
[2020-05-05] MEDS: HYDROGEL DRESSING 90 GM TUBE TP SCH (10:38)
[2020-05-05] MEDS ORDERED: TPN BAG #11 IV PRN ×8 (13:00)
[2020-05-05 13:25] LABS: EOSINOPHILS % (AUTO) 1.2 % (0.0-6.0); HEMATOCRIT 27 % (33-45); HEMOGLOBIN 8.2 g/dL (11.5-14.8); LYMPHOCYTES # (AUTO) 0.7 /CMM (0.8-4.8); LYMPHOCYTES % (AUTO) 3.9 % (20.0-44.0); MEAN CORPUSCULAR HGB CONC 31 g/dl (31.0-36.0); MEAN CORPUSCULAR VOLUME 117 fL (82-100); MONOCYTES # (AUTO) 1.2 /CMM (0.1-1.30); MONOCYTES % (AUTO) 7.1 % (2.0-12.0); NEUTROPHILS # (AUTO) 14.9 /CMM (1.8-8.9); NEUTROPHILS % (AUTO) 87.8 % (43.0-81.0); PLATELET COUNT (AUTO) 157 /CMM (150-450)
[2020-05-05 13:27] LABS: NEUTROPHILS % (MANUAL) 92 (42-76)
[2020-05-05 13:28] LABS: LYMPHOCYTES % (MANUAL) 3 % (16-48)
[2020-05-05 13:30] LABS: MONOCYTES % (MANUAL) 5 % (0-11.0)
[2020-05-05] MEDS: FAT EMULSION 20% 500 ML in PREMIX 1 EA IV SCH (15:31)
[2020-05-05] MEDS: MEROPENEM 500 MG in IV NS 0.9% 50 ML IV SCH (17:56)
--- NOTE | 2020-05-05 19:45 | NUR ---
END OF SHIFT NOTE: PT HAD AN EVENTFUL DAY. SMALL BOWEL SERIES STARTED AT 1000 THIS AM AND ENDED AT 1800. RADIOLOGIST OK'S NG TUBE TO BE HOOKED BACK UP TO SUCTION AT 1800. RIGHT BEFORE NG TUBE WAS HOOKED BACK UP TO SUCTION PT VOMITED A LARGE AMOUNT OF GREEN EMESIS. PT WAS CLEANED UP, ALL LINENS CHANGED, TRACH TIES AND TRACH SPONGES CHANGES. 300ML IMMEDIATELY RECEIVED FROM NG SUCTION. PILAR SOMMER FOR SURGERY NOTIFIED. KEMAL HERNANDEZ'S GIVING DOSE OF LACTULOSE AT 1900. DOSE GIVEN, NG CLAMPED FOR 2 HOURS, ENDORSED TO ONCOMING SHIFT. LARGE AMOUNT OF LIQUID BM NOTED WHEN PATIENT WAS CLEANED UP. PER DR. ELENA PT WILL HAVE DIALYSIS TONIGHT, AFTER DIALYSIS PHARMACY OK'D GIVING BOTH VANCOMYCIN AND AMIKACIN DOSES, ENDORSED TO ONCOMING SHIFT. PT CHECKED ON HOURLY AND PRN BY NURSING STAFF.
--- NOTE | 2020-05-05 20:00 | NUR ---
Received patient awake in no acute distress.VSS.SR.Trach to vent on full vent support with prescribed settings.Tolerating vent settings well.All IV's TPN,LIPIDS, NS @ TKO infusing via CHRISTINA PICC Line.Site intact.R NGT to LIS draining greenish output.Denies pain.Patient turned and repositioned to comfort.Continue monitoring.
--- NOTE | 2020-05-05 23:00 | NUR ---
Patient had HD 2000 ml out.Tolerated procedure well.VSS.Denies pain or any discomfort.
[2020-05-05] MEDS: VANCOMYCIN 500 MG in IV D5W 100 ML IV PRN (23:22)
[2020-05-06] VITALS (88 sets, daily range): BP systolic 69–138; BP diastolic 19–71
--- NOTE | 2020-05-06 | NUR ---
Patient with large BM loose greenish.Perineal and bed bath rendered.Complete linens changed. Wound care done per protocol.Turned and repositioned.VSS.N distress noted.
[2020-05-06] MEDS: BLOOD SUGAR DIAGNOSTIC 1 EACH STRIP IN SCH ×5 (00:09→23:21)
[2020-05-06] MEDS: METOCLOPRAMIDE HCL 10 MG/2 ML VIAL IV SCH ×5 (00:09→23:15)
[2020-05-06] MEDS: AMIKACIN 450 MG in IV D5W 100 ML IV PRN (01:24)
[2020-05-06] MEDS: IPRATROPIUM NEB FS 0.5 MG/2.5 ML AMPUL.NEB NEB SCH ×4 (02:11→19:59)
[2020-05-06 04:41] LABS: BASOPHILS # (AUTO) 0.1 /CMM (0.0-0.2); BASOPHILS % (AUTO) 0.4 % (0.0-2.0); EOSINOPHILS % (AUTO) 0.4 % (0.0-6.0); HEMATOCRIT 28 % (33-45); HEMOGLOBIN 8.7 g/dL (11.5-14.8); LYMPHOCYTES # (AUTO) 0.4 /CMM (0.8-4.8); LYMPHOCYTES % (AUTO) 1.4 % (20.0-44.0); MEAN CORPUSCULAR HGB CONC 31 g/dl (31.0-36.0); MEAN CORPUSCULAR VOLUME 117 fL (82-100); MONOCYTES # (AUTO) 0.2 /CMM (0.1-1.30); MONOCYTES % (AUTO) 0.6 % (2.0-12.0); NEUTROPHILS # (AUTO) 28.1 /CMM (1.8-8.9); NEUTROPHILS % (AUTO) 97.2 % (43.0-81.0); PLATELET COUNT (AUTO) 183 /CMM (150-450); WHITE BLOOD COUNT (AUTO) 28.9 K/uL (4.3-11.0)
[2020-05-06 04:49] LABS: CALCIUM, SERUM 8.9 mg/dL (8.5-10.1); CARBON DIOXIDE 26 mmol/L (21-32); CHLORIDE 101 mmol/L (98-107); CREATININE 3.2 mg/dL (0.6-1.3); GLUCOSE 71 mg/dL (74-106); MAGNESIUM 2.1 mg/dL (1.8-2.4); PHOSPHORUS 2.7 mg/dL (2.5-4.9); POTASSIUM 3.6 mmol/L (3.5-5.1); SODIUM SERUM 136 mmol/L (136-145); UREA NITROGEN, BLOOD 79 mg/dL (7-18)
[2020-05-06] MEDS: DEXTROSE 50%-WATER 50 ML DISP.SYRIN IVP PRN (05:32)
[2020-05-06] MEDS ORDERED: NOREPINEPHRINE 4 MG/4 ML AMPUL IV ONE (06:24)
[2020-05-06 06:29] LABS: BAND % (MANUAL) 53 % (0.0-5.0); EOSINOPHILS % (MANUAL) 1 % (0-4); LYMPHOCYTES % (MANUAL) 1 % (16-48); MONOCYTES % (MANUAL) 1 % (0-11.0); NEUTROPHILS % (MANUAL) 44 (42-76)
[2020-05-06] MEDS: NOREPINEPHRINE 8 MG in IV NS 0.9% 242 ML IV PRN (06:29)
--- NOTE | 2020-05-06 06:35 | NUR ---
Patient FSBS 61 covered with D50 1 amp IVP.BS rechecked after 30 min BS 100. Patient BP unstable SPB'S low 80's.Levophed gtt started at 0.1 mcg/kg/min and will titrate accordingly.SR 90's.Patient resting in no acute distress.NGT to LIS Drained 300 ml greenish.BM X2 loose greenish.Kept clean and dry.Turned and repositioned. Will endorse to day shift for anthony.
[2020-05-06] MEDS: IV NS 0.9% 1,000 ML IV PRN ×2 (07:51→12:42)
[2020-05-06] MEDS: LEVOTHYROXINE SODIUM 100 MCG TABLET GT SCH (07:53)
--- NOTE | 2020-05-06 08:00 | NUR ---
DIRECTOR OF INSTRUCTION: pt is drowsy, can open eyes by touch, eyes contact+, very weak, reactive by name, rest, grimacing with suction, on wrists restraints for self extubation prevention, SR, on Levophed gtt 0.1 mcg/kg/m now, SBP over 90 now, O2sat over 98%, suctioned well with large amount, no SOB, NGT to LIS/greenish/yellowish drain, NPO, s/p laparotomy, abdominal incision with S/S oozing discharge/changed dressing/ok to keep to air by night nurse report f/u KANCHAN Sorenson note, checked all notes: hold per MD/ 05/01/20: celexa, erythromycin, fibercon, glycopyrrolate, prostat, vits, ok to continue Lactulose, NGT to LIS, KUB done: ileus, on TPN/lipids, BG 61 episode/100 after D50/50, will speak with pharmacy/MD, WBC 28, ?next HD, ordered NS 2L 200ml/h
[2020-05-06] MEDS: HYDROGEL DRESSING 90 GM TUBE TP SCH (08:03)
[2020-05-06] MEDS: MUPIROCIN OINT 2% 22 GM TUBE SCH ×2 (08:03→20:06)
[2020-05-06] MEDS: Z GUARD REMEDY 2 OZ OINT TP PRN (08:04)
[2020-05-06] MEDS: CLOTRIMAZOLE 1% 15 GM TUBE TP SCH ×2 (08:04→20:06)
--- NOTE | 2020-05-06 08:35 | NUR ---
STITCHER UTILITY: updated with pt.current condition, VS, pressor
[2020-05-06] MEDS: LACTULOSE 10 G/15 ML UDC (PYXIS) GT SCH ×2 (08:38→17:16)
[2020-05-06] MEDS: GLYCOPYRROLATE 1 MG TABLET GT SCH ×3 (08:39→17:00)
[2020-05-06] MEDS: PANTOPRAZOLE 40 MG VIAL IV SCH (08:39)
[2020-05-06] MEDS: PROSOURCE / PROSTAT (PYXIS) 30 ML UDC GT SCH ×3 (08:39→17:00)
[2020-05-06] MEDS: CITALOPRAM HYDROBROMIDE 10 MG TABLET GT SCH (08:39)
[2020-05-06] MEDS: ASCORBIC ACID 500 MG TABLET GT SCH (08:39)
[2020-05-06] MEDS: CALCIUM POLYCARBOPHIL 625 MG TABLET GT SCH ×2 (08:39→17:00)
[2020-05-06] MEDS: ERYTHROMYCIN ETHYLSUCCINATE 200 MG/5 ML SUSPENSION GT SCH ×3 (08:39→17:00)
[2020-05-06] MEDS: MULTIVITAMINS,THERAGRAN 1 UDTAB TABLET GT SCH (08:39)
--- NOTE | 2020-05-06 10:05 | NUR ---
CARE TRANSITION MANAGER: placed orders for Amika Vanco level V before HD, HD nurse is in unit/notified re pt.current VS, Levophed gtt, labs, orders, IVF.
--- NOTE | 2020-05-06 11:46 | NUR ---
SALES ROUTE DRIVER HELPER: pt is getting HD, Levo gtt was increased
[2020-05-06] MEDS ORDERED: NOREPINEPHRINE 32 MG in IV NS 0.9% 218 ML IV PRN (12:30)
--- NOTE | 2020-05-06 13:00 | NUR ---
FLIGHT SURGEON: HD done, 1.5L out, tolerated well
[2020-05-06] MEDS ORDERED: TPN BAG #12 IV PRN ×8 (14:00)
--- NOTE | 2020-05-06 14:21 | NUR ---
MARINE STEAM FITTER HELPER: pt is grimacing, c/o abdomen, general pain 6-05/20, will going for wounds care/PM care, will give Dilaudid 1mg IV
[2020-05-06] MEDS: HYDROMORPHONE 1 MG/1 ML DISP.SYRIN IV PRN ×2 (14:29→21:39)
--- NOTE | 2020-05-06 14:38 | NUR ---
ADMINISTRATIVE AND PROGRAM SPECIALIST: HD done, Vanco level 19 before, called pharmacy for bag, Amika level is still pending
[2020-05-06] MEDS: VANCOMYCIN 500 MG in IV D5W 100 ML IV PRN (14:47)
--- NOTE | 2020-05-06 15:40 | NUR ---
WRITING MANAGER: KANCHAN Sorenson called/updated with pt.VS, Levophed gtt, no vomiting, NPO, meds, wounds status/discharge, s/s oozing from lower part abdomen incision, NGT LIsuction amount, small loose stool, pain meds given x1, wounds photos were sent, ordered and canceled Erythro PO d/t possible interaction with Amikacin/spoke with pharmacy
--- NOTE | 2020-05-06 15:55 | NUR ---
CHAIR SPRINGER: sent abdomen incision/wound photos with s/s&purulent discharge/drain between staple to KANCHAN Sorenson
[2020-05-06] MEDS ORDERED: ERYTHROMYCIN ETHYLSUCCINATE 200 MG/5 ML SUSPENSION GT SCH (16:00)
[2020-05-06] MEDS: MEROPENEM 500 MG in IV NS 0.9% 50 ML IV SCH (16:10)
--- NOTE | 2020-05-06 17:20 | NUR ---
LINE PULLER: is in room, updated with all above, took wound culture from and.incision wound, removed all lauren, evaluated wound, irrigated with 10% Iodine solution, applied in 4x4 gauzes, covered with ABD, ordered: abdomen wound care q4h, see misc.order
--- NOTE | 2020-05-06 18:30 | NUR ---
PATTERN AND CHAIN MAKER: Tomasa REINA updated/see new orders
--- NOTE | 2020-05-06 19:36 | NUR ---
LABORATORY COURIER NOTE: Spoke w/ pharmacy for pt's 1900 unverified Colistimethate order. Stated pharmacist Krishna is working on orders now and will verify and bring up medication. Will administer once available.
--- NOTE | 2020-05-06 19:47 | NUR ---
WINE BLENDER OPENING NOTE: Received pt resting in bed, opens eyes and responds to name. On mechanical ventilation tolerating settings well. No SOB or respiratory distress noted. SR on tele monitor. NGT to light intermittent suction. GT clamped. Pt NPO. On KITCHEN STEWARD restraints for prevention of self extubation. CHRISTINA PICC line patent and flushing. On TPN infusing at 76ml/hr and Levo infusing at 0.15mcg/kg/min. Will titrate per protocol. Safety measures in place. Will continue to monitor.
[2020-05-06] MEDS ORDERED: COLISTIMETHATE SODIUM IV ONE (20:00)
[2020-05-06] MEDS ORDERED: NS 0.9% IV ONE (20:00)
[2020-05-07] VITALS (112 sets, daily range): BP systolic 68–143; BP diastolic 28–77
[2020-05-07] MEDS: HYDROMORPHONE 1 MG/1 ML DISP.SYRIN IV PRN ×4 (03:53→21:42)
[2020-05-07] MEDS: IPRATROPIUM NEB FS 0.5 MG/2.5 ML AMPUL.NEB NEB SCH ×4 (03:59→20:06)
[2020-05-07 05:06] LABS: BASOPHILS # (AUTO) 0.2 /CMM (0.0-0.2); BASOPHILS % (AUTO) 1.2 % (0.0-2.0); EOSINOPHILS % (AUTO) 1.2 % (0.0-6.0); HEMATOCRIT 25 % (33-45); HEMOGLOBIN 7.2 g/dL (11.5-14.8); LYMPHOCYTES # (AUTO) 0.7 /CMM (0.8-4.8); MEAN CORPUSCULAR HGB CONC 28 g/dl (31.0-36.0); MEAN CORPUSCULAR VOLUME 125 fL (82-100); MONOCYTES # (AUTO) 1.1 /CMM (0.1-1.30); MONOCYTES % (AUTO) 6.4 % (2.0-12.0); NEUTROPHILS # (AUTO) 15.6 /CMM (1.8-8.9); NEUTROPHILS % (AUTO) 87.2 % (43.0-81.0); PLATELET COUNT (AUTO) 190 /CMM (150-450); RED BLOOD CELL COUNT(AUTO) 2.02 MIL/uL (4.0-5.2); WHITE BLOOD COUNT (AUTO) 17.9 K/uL (4.3-11.0)
[2020-05-07] MEDS: METOCLOPRAMIDE HCL 10 MG/2 ML VIAL IV SCH ×3 (05:47→17:11)
[2020-05-07 05:51] LABS: EOSINOPHILS % (MANUAL) 1 % (0-4); LYMPHOCYTES % (MANUAL) 4 % (16-48); MONOCYTES % (MANUAL) 6 % (0-11.0); NEUTROPHILS % (MANUAL) 89 (42-76)
[2020-05-07] MEDS: BLOOD SUGAR DIAGNOSTIC 1 EACH STRIP IN SCH ×3 (05:57→18:36)
[2020-05-07 06:31] LABS: ALANINE AMINOTRANSFERASE < 6 U/L (12-78); ALKALINE PHOSPHATASE 212 U/L (46-116); ASPARTATE AMINOTRANSFERASE 16 U/L (15-37); BILIRUBIN,TOTAL 0.8 mg/dL (0.2-1.0); CALCIUM, SERUM 9.4 mg/dL (8.5-10.1); CARBON DIOXIDE 28 mmol/L (21-32); CHLORIDE 101 mmol/L (98-107); CREATININE 2.8 mg/dL (0.6-1.3); GLUCOSE 106 mg/dL (74-106); PHOSPHORUS 2.8 mg/dL (2.5-4.9); POTASSIUM 3.6 mmol/L (3.5-5.1); SODIUM SERUM 135 mmol/L (136-145); UREA NITROGEN, BLOOD 61 mg/dL (7-18)
[2020-05-07 06:33] LABS: ALBUMIN 1.1 g/dL (3.4-5.0)
--- NOTE | 2020-05-07 06:43 | NUR ---
INJECTION MOLDING MACHINE SETTER CLOSING NOTES: Pt remains on mechanical ventilation, tolerating settings well. No SOB or respiratory distress ntoed during shift. No acute changes noted during shift. SR on tele monitor. NGT on low intermittent suction and old GT clamped. CHRISTINA PICC line patent and flushing. TPN infusing at 76ml/hr and Levo infusing at 0.11 mcg/kg/min. Titrated per protocol. Wound tx rendered as ordered Q4H and PRN. IV Dilaudid administered prior to dressing change. Safety measures in place. Will endorse to AM nurse for EVELYN.
[2020-05-07] MEDS: LEVOTHYROXINE SODIUM 100 MCG TABLET GT SCH (07:30)
--- NOTE | 2020-05-07 07:39 | NUR ---
MEAT AND POULTRY INSPECTOR: pt is weak, drowsy, reactive by name/touch, A/Ox2, on wrists restraints/self extubation prevention, grimacing, abdomen pain 4-5/10 now, abdomen wound care q4h/next 09.00, WBC 17.9/down, getting pain meds, O2sat. over 97%, no SOB, suctioned well, RR 18-23 now, SR, SBP over 90 now, on Levophed 0.1 mcg/kg/m now/continue titrate, NPO strict, NGT to LIS/yellowish secretion, TPN running/BG106, T WNL, BUN/cret 61/2.8 down, no critical labs
--- NOTE | 2020-05-07 08:10 | NUR ---
SALVAGE ENGINEERING TECHNICIAN: called/updated with pt.current condition, VS, pressor by CN, see new orders
[2020-05-07] MEDS: CALCIUM POLYCARBOPHIL 625 MG TABLET GT SCH ×2 (09:00→17:00)
[2020-05-07] MEDS: ASCORBIC ACID 500 MG TABLET GT SCH (09:00)
[2020-05-07] MEDS: ERYTHROMYCIN ETHYLSUCCINATE 200 MG/5 ML SUSPENSION GT SCH ×3 (09:00→17:00)
[2020-05-07] MEDS: CITALOPRAM HYDROBROMIDE 10 MG TABLET GT SCH (09:00)
[2020-05-07] MEDS: GLYCOPYRROLATE 1 MG TABLET GT SCH ×3 (09:00→17:00)
[2020-05-07] MEDS: PROSOURCE / PROSTAT (PYXIS) 30 ML UDC GT SCH ×3 (09:00→17:00)
[2020-05-07] MEDS: MULTIVITAMINS,THERAGRAN 1 UDTAB TABLET GT SCH (09:00)
[2020-05-07] MEDS: LACTULOSE 10 G/15 ML UDC (PYXIS) GT SCH ×2 (09:15→17:10)
--- NOTE | 2020-05-07 09:15 | NUR ---
GAME PRESERVE MANAGER: Dilaudid 1 mg IV given before w/c
[2020-05-07] MEDS: PANTOPRAZOLE 40 MG VIAL IV SCH (09:17)
[2020-05-07] MEDS: CLOTRIMAZOLE 1% 15 GM TUBE TP SCH ×2 (09:19→21:24)
[2020-05-07] MEDS: HYDROGEL DRESSING 90 GM TUBE TP SCH (09:19)
[2020-05-07] MEDS: MUPIROCIN OINT 2% 22 GM TUBE SCH ×2 (09:20→21:23)
[2020-05-07] MEDS: Z GUARD REMEDY 2 OZ OINT TP PRN (09:20)
--- NOTE | 2020-05-07 09:20 | NUR ---
SENIOR WIND ENERGY CONSULTANT: abdomen open wound care done, little more dry, GT dressing is changed/no any leak, NGT to LIS: yellowish secretion
[2020-05-07] MEDS ORDERED: TPN BAG #13 IV PRN ×8 (10:30)
--- NOTE | 2020-05-07 11:14 | NUR ---
INSURANCE CLAIMS SUPERVISOR: is in room/updated with pt.current status, vent setting, suction amount, Levophed gtt, abdomen open wound, NPO, TPN, NGT to LIS, HD, one PRBC unit order+, labs, see new orders
[2020-05-07 12:02] LABS: THYROID STIMULATING HORMONE 13.515 uIU/mL (0.358-3.74)
--- NOTE | 2020-05-07 12:15 | NUR ---
DETENTION WORKER: is in room/updated with pt.neurostatus, VS, Levophed gtt, NPO, NGT to LIS, labs, meds (lactulose PO, reglan protonix IV, all other PO meds on hold, agree with that), one PRBC unit order, TPN, re 05/06 visit/removed lauren from abdomen wound d/t s/s/little purulent drain from lower incision part/between lauren, wound care q4h, w/culture sent, checked wound photos, see new orders
[2020-05-07] MEDS: FAT EMULSION 20% 500 ML in PREMIX 1 EA IV SCH (14:02)
--- NOTE | 2020-05-07 14:30 | NUR ---
RADIAL ARM SAW OPERATOR: VSS, same neurostatus, started PRBC transfusion with rate 60ml/hr, f/u BT protocol
--- NOTE | 2020-05-07 16:43 | NUR ---
MASON FOREMAN/SUPERINTENDANT: stopped and restarted Levophed d/t SBP dropped down to 70s during 20 mins, now 0.1-0.08 mcg.kg.m Levophed gtt, spoke with pharmacy/next bag will be back to 8mg concentration
[2020-05-07] MEDS ORDERED: NOREPINEPHRINE 8 MG in IV NS 0.9% 242 ML IV PRN (17:00)
[2020-05-07] MEDS: MEROPENEM 500 MG in IV NS 0.9% 50 ML IV SCH (17:10)
--- NOTE | 2020-05-07 17:20 | NUR ---
LEGAL ARCHIVIST: one PRBC unit transfused/pt tolerated well, all wounds care/PM/bedbath care done, Tomasa REINA is in room/updated with all above, see new orders
[2020-05-07] MEDS ORDERED: NOREPINEPHRINE 8 MG in IV D5W 242 ML IV ONE (18:00)
--- NOTE | 2020-05-07 18:48 | NUR ---
DEPUTY BRAND INSPECTOR: pt is weak, rest now, drowsy/reactive by name, A/Ox2, no c/o pain now, O2sat.over 96%/no SOB, suctioned well with large amount out, SR, SBP over 90/on 0.08 mcg/kg/m Levophed gtt now, anuric, GT is clamped, NGT to LIS/yellowish drain, all PM/bedbath/skin care done, abdomen wound care done q4h with Dilaudid premedicated, skin under restraints: intact/WNL color, getting TPN, lipids IV, BG 77
--- NOTE | 2020-05-07 19:45 | NUR ---
RN OPENING NOTE Received pt from Alessandra RN, PT resting in bed, opens eyes and responds to name. On mechanical ventilation tolerating settings well. No SOB or respiratory distress noted. SR on tele monitor. NGT to light intermittent suction. GT clamped. Pt NPO. On bilateral wrist restraints for prevention of self extubation. CHRISTINA PICC line patent and flushing. On TPN infusing at 76ml/hr. Alessandra RN restarted Levo at 1750 infusing at 0.08. Safety measures in place. Will continue to monitor pt
[2020-05-07] MEDS ORDERED: COLISTIMETHATE SODIUM 100 MG in IV NS 0.9% 50 ML IV SCH (20:00)
[2020-05-07] MEDS: COLISTIMETHATE SODIUM 75 MG in IV NS 0.9% 50 ML IV SCH (20:00)
[2020-05-08] VITALS (93 sets, daily range): BP systolic 66–141; BP diastolic 33–75
[2020-05-08] MEDS: METOCLOPRAMIDE HCL 10 MG/2 ML VIAL IV SCH ×4 (00:03→17:20)
[2020-05-08] MEDS: BLOOD SUGAR DIAGNOSTIC 1 EACH STRIP IN SCH ×4 (00:03→18:28)
[2020-05-08] MEDS: IPRATROPIUM NEB FS 0.5 MG/2.5 ML AMPUL.NEB NEB SCH ×4 (02:10→19:56)
--- NOTE | 2020-05-08 02:16 | NUR ---
RT NOTE Pt rec'd trached on [facility] vent on ac mode. pt shows no signs of resp distress or sob. trach is patent and secured. alarms are set and audible. vent plugged into red outlet. alarms are set and audible vent plugged into red outlet. Ambu bag bedside. will continue to monitor Addendum: 05/08/20 at 0219 by YANELI NUÑEZ RT Amended: Links added.
[2020-05-08] MEDS: NOREPINEPHRINE 8 MG in IV NS 0.9% 242 ML IV PRN ×3 (02:17→13:51)
[2020-05-08] MEDS: HYDROMORPHONE 1 MG/1 ML DISP.SYRIN IV PRN ×2 (03:06→05:47)
[2020-05-08 04:56] LABS: BASOPHILS # (AUTO) 0.1 /CMM (0.0-0.2); BASOPHILS % (AUTO) 0.3 % (0.0-2.0); EOSINOPHILS % (AUTO) 1.5 % (0.0-6.0); HEMATOCRIT 28 % (33-45); HEMOGLOBIN 8.9 g/dL (11.5-14.8); LYMPHOCYTES # (AUTO) 0.8 /CMM (0.8-4.8); LYMPHOCYTES % (AUTO) 4.4 % (20.0-44.0); MEAN CORPUSCULAR HGB CONC 32 g/dl (31.0-36.0); MEAN CORPUSCULAR VOLUME 114 fL (82-100); MONOCYTES # (AUTO) 0.9 /CMM (0.1-1.30); MONOCYTES % (AUTO) 5.1 % (2.0-12.0); NEUTROPHILS # (AUTO) 16.6 /CMM (1.8-8.9); NEUTROPHILS % (AUTO) 88.7 % (43.0-81.0); PLATELET COUNT (AUTO) 237 /CMM (150-450); RED BLOOD CELL COUNT(AUTO) 2.47 MIL/uL (4.0-5.2); WHITE BLOOD COUNT (AUTO) 18.7 K/uL (4.3-11.0)
[2020-05-08 05:08] LABS: CALCIUM, SERUM 9.7 mg/dL (8.5-10.1); CARBON DIOXIDE 27 mmol/L (21-32); CHLORIDE 98 mmol/L (98-107); CREATININE 3.1 mg/dL (0.6-1.3); GLUCOSE 96 mg/dL (74-106); MAGNESIUM 2.1 mg/dL (1.8-2.4); PHOSPHORUS 2.9 mg/dL (2.5-4.9); POTASSIUM 3.5 mmol/L (3.5-5.1); SODIUM SERUM 133 mmol/L (136-145); UREA NITROGEN, BLOOD 71 mg/dL (7-18)
[2020-05-08] MEDS ORDERED: NOREPINEPHRINE 4 MG/4 ML AMPUL IV ONE (05:13)
[2020-05-08 05:15] LABS: TRIGLYCERIDES 328 mg/dL (30-150)
--- NOTE | 2020-05-08 06:48 | NUR ---
RN CLOSING NOTE PT resting in bed, opens eyes and responds to name. On mechanical ventilation tolerating settings well. No SOB or respiratory distress noted. SR on tele monitor. NGT to light intermittent suction. GT clamped. Pt NPO. On bilateral wrist restraints for prevention of self extubation. CHRISTINA PICC line patent and flushing. changed abdominal dressing q 4 hrs per MD orders, pain meds given, pt afebrile throught out shift. TPN infusing at 76ml/hr. Levo infusing at 0.2. Safety measures in place. call light within reach, endorsed to am RN for anthony
[2020-05-08] MEDS: LEVOTHYROXINE SODIUM 100 MCG TABLET GT SCH (07:00)
[2020-05-08] MEDS ORDERED: TPN BAG #14 IV PRN ×8 (07:30)
--- NOTE | 2020-05-08 08:00 | NUR ---
RN NOTES RECEIVED PATIENT FOR CONTINUITY OF CARE, AWAKE, WITH SPONTANEOUS EYE OPENING BUT IS UNABLE TO TRACK, UNABLE TO FOLLOW COMMAND. TRACH TO VENT. NO INDICATION OF SHORTNESS OF BREATHING NOTED. TOLERATING VENT SETTINGS WELL WITH SATURATION AT 98%. SECRETION NOTED THICK AND YELLOW IN COLOR. AFEBRILE AT 97.8. NGT IN PLACE ATTACHED TO LOW SUCTION. . IV ACCESS ON THE CHRISTINA MID LINE IN PLACE WITH ONGOING A. LEVOPHED AT 0.2MCG/KG/ML WILL TITRATE ABLE B. TPN AT 76ML/HR AND LIPIDS AT 21ML/HR. PATIENT NOTED WITH OCCASIONAL FROWNS, WILL ADMINISTER PAIN MEDICATION NEEDED. GT IN PLACE, CLAMPED AT THIS TIME. ABDOMINAL WOUND DESSIING IN PLACE, CLEAN AND DRY. HOB ELEVATED. CALL LIGHT WITHIN REACH. SAFETY MEASURES IN PLACE. SRX2 UP. BED IN LOW AND LOCKED POSITION. WILL CONTINUE TO MONITOR ACCORDINGLY
[2020-05-08] MEDS: MUPIROCIN OINT 2% 22 GM TUBE SCH ×2 (08:09→22:44)
[2020-05-08] MEDS: CLOTRIMAZOLE 1% 15 GM TUBE TP SCH ×2 (08:10→22:45)
[2020-05-08] MEDS: HYDROGEL DRESSING 90 GM TUBE TP SCH (08:10)
[2020-05-08] MEDS: PANTOPRAZOLE 40 MG VIAL IV SCH (08:12)
[2020-05-08] MEDS: LACTULOSE 10 G/15 ML UDC (PYXIS) GT SCH ×2 (08:41→17:00)
[2020-05-08] MEDS: CITALOPRAM HYDROBROMIDE 10 MG TABLET GT SCH (08:41)
[2020-05-08] MEDS: ERYTHROMYCIN ETHYLSUCCINATE 200 MG/5 ML SUSPENSION GT SCH ×3 (08:41→17:00)
[2020-05-08] MEDS: MULTIVITAMINS,THERAGRAN 1 UDTAB TABLET GT SCH (08:42)
[2020-05-08] MEDS: CALCIUM POLYCARBOPHIL 625 MG TABLET GT SCH ×2 (08:42→17:00)
[2020-05-08] MEDS: PROSOURCE / PROSTAT (PYXIS) 30 ML UDC GT SCH ×3 (08:42→17:00)
[2020-05-08] MEDS: GLYCOPYRROLATE 1 MG TABLET GT SCH ×3 (08:42→17:00)
[2020-05-08] MEDS: ASCORBIC ACID 500 MG TABLET GT SCH (08:42)
[2020-05-08] MEDS: HYDROCORTISONE SOD SUCCINATE 100 MG/2 ML VIAL IV SCH ×3 (09:13→17:20)
[2020-05-08] MEDS: MORPHINE SULFATE INJ 2 MG/ML DISP.SYRIN IM PRN ×2 (12:05→19:22)
[2020-05-08] MEDS ORDERED: NOREPINEPHRINE 8 MG in IV D5W 242 ML IV PRN (17:00)
[2020-05-08] MEDS: MEROPENEM 500 MG in IV NS 0.9% 50 ML IV SCH (17:21)
--- NOTE | 2020-05-08 19:00 | NUR ---
RN NOTES ENDORSED FOR CONTINUITY OF CARE. NOT ON ANY FORM OF DISTRESS. NO ACUTE/ SIGNIFICANT CHANGES WITHIN THE SHIFT
[2020-05-08] MEDS: COLISTIMETHATE SODIUM 75 MG in IV NS 0.9% 50 ML IV SCH (19:24)
--- NOTE | 2020-05-08 20:35 | NUR ---
RECEIVED PT TRACH ON VENT. PT HAS SHLY 6. PT TOLERATING VENT SETTINGS. SX'D AND LAVAGED, PT HAS MOD AMT OF THICK YELLOW SECRETIONS. VENT ALARMS SET AND AUDIBLE. VENT PLUGGED INTO RED OUTLET. CONTINUE [facility] VENT SUPORT. Addendum: 05/08/20 at 2037 by CATRACHO RITCHIE RT Amended: Links added.
[2020-05-09] VITALS (85 sets, daily range): BP systolic 89–155; BP diastolic 47–88
[2020-05-09] MEDS: METOCLOPRAMIDE HCL 10 MG/2 ML VIAL IV SCH ×4 (00:04→17:30)
[2020-05-09] MEDS: BLOOD SUGAR DIAGNOSTIC 1 EACH STRIP IN SCH ×4 (00:04→17:30)
[2020-05-09] MEDS: IPRATROPIUM NEB FS 0.5 MG/2.5 ML AMPUL.NEB NEB SCH ×4 (01:07→19:54)
[2020-05-09 04:34] LABS: BASOPHILS % (AUTO) 0.1 % (0.0-2.0); HEMATOCRIT 25 % (33-45); HEMOGLOBIN 7.9 g/dL (11.5-14.8); LYMPHOCYTES # (AUTO) 0.3 /CMM (0.8-4.8); LYMPHOCYTES % (AUTO) 1.7 % (20.0-44.0); MEAN CORPUSCULAR HGB CONC 31 g/dl (31.0-36.0); MEAN CORPUSCULAR VOLUME 113 fL (82-100); MONOCYTES # (AUTO) 0.7 /CMM (0.1-1.30); MONOCYTES % (AUTO) 3.8 % (2.0-12.0); NEUTROPHILS # (AUTO) 16.6 /CMM (1.8-8.9); NEUTROPHILS % (AUTO) 94.4 % (43.0-81.0); PLATELET COUNT (AUTO) 213 /CMM (150-450); RED BLOOD CELL COUNT(AUTO) 2.24 MIL/uL (4.0-5.2); WHITE BLOOD COUNT (AUTO) 17.6 K/uL (4.3-11.0)
[2020-05-09 05:02] LABS: CALCIUM, SERUM 9.7 mg/dL (8.5-10.1); CARBON DIOXIDE 28 mmol/L (21-32); CHLORIDE 98 mmol/L (98-107); CREATININE 2.6 mg/dL (0.6-1.3); GLUCOSE 153 mg/dL (74-106); MAGNESIUM 2.1 mg/dL (1.8-2.4); SODIUM SERUM 133 mmol/L (136-145); UREA NITROGEN, BLOOD 59 mg/dL (7-18)
--- NOTE | 2020-05-09 07:20 | NUR ---
RN INITIAL NOTES RECEIVED PT AWAKE, A/0. TRACH IN PLACE, TOLERATING VENT. NO RESPIRATORY DISTRESS NOTED. NO SOB NOTED. DENIES ANY PAIN. NGT IN PLACE CONNECTED TO LOW INTERMITTENT SUCTION. CHRISTINA PICC AND RIJ HD CATH IN PLACE. ON LEVOPHED, WILL TITRATE ACCORDINGLY. TPN INFUSING. NO ASE NOTED. J-TUBE CLAMPED. BLE ELEVATED. PT COMFORTABLE. WILL MONITOR
[2020-05-09] MEDS: CITALOPRAM HYDROBROMIDE 10 MG TABLET GT SCH (08:11)
[2020-05-09] MEDS: LEVOTHYROXINE SODIUM 100 MCG TABLET GT SCH (08:11)
[2020-05-09] MEDS: GLYCOPYRROLATE 1 MG TABLET GT SCH ×3 (08:11→16:32)
[2020-05-09] MEDS: CALCIUM POLYCARBOPHIL 625 MG TABLET GT SCH ×2 (08:11→16:31)
[2020-05-09] MEDS: ERYTHROMYCIN ETHYLSUCCINATE 200 MG/5 ML SUSPENSION GT SCH ×3 (08:11→16:31)
[2020-05-09] MEDS: HYDROGEL DRESSING 90 GM TUBE TP SCH (08:12)
[2020-05-09] MEDS: MUPIROCIN OINT 2% 22 GM TUBE SCH ×2 (08:12→21:24)
[2020-05-09] MEDS: MULTIVITAMINS,THERAGRAN 1 UDTAB TABLET GT SCH (08:12)
[2020-05-09] MEDS: CLOTRIMAZOLE 1% 15 GM TUBE TP SCH ×2 (08:12→21:24)
[2020-05-09] MEDS: PROSOURCE / PROSTAT (PYXIS) 30 ML UDC GT SCH ×3 (08:12→16:32)
[2020-05-09] MEDS: ASCORBIC ACID 500 MG TABLET GT SCH (08:12)
[2020-05-09] MEDS: PANTOPRAZOLE 40 MG VIAL IV SCH (08:29)
[2020-05-09] MEDS: HYDROCORTISONE SOD SUCCINATE 100 MG/2 ML VIAL IV SCH ×3 (08:30→16:40)
[2020-05-09] MEDS: LACTULOSE 10 G/15 ML UDC (PYXIS) GT SCH ×2 (08:30→16:40)
[2020-05-09] MEDS ORDERED: INSULIN REGULAR, HUMAN 100 UNIT/ML 3 ML VIAL SQ PRN (10:30)
[2020-05-09] MEDS ORDERED: *INSULIN REGULAR(HUMULIN R)HUM 100 UNIT/ML VIAL SQ PRN (10:30)
[2020-05-09] MEDS ORDERED: DEXTROSE 50%-WATER 50 ML DISP.SYRIN IV PRN ×2 (10:30)
[2020-05-09] MEDS ORDERED: BLOOD SUGAR DIAGNOSTIC 1 EACH STRIP VI SCH (12:00)
[2020-05-09] MEDS ORDERED: TPN BAG #15 IV PRN ×8 (13:00)
[2020-05-09] MEDS: FAT EMULSION 20% 500 ML in PREMIX 1 EA IV SCH (13:47)
[2020-05-09] MEDS: MORPHINE SULFATE INJ 2 MG/ML DISP.SYRIN IM PRN (14:24)
[2020-05-09] MEDS: MEROPENEM 500 MG in IV NS 0.9% 50 ML IV SCH (16:40)
[2020-05-09] MEDS ORDERED: DOSING PER PHARMACY-AMIKACI IV XX PRN (19:00)
[2020-05-09] MEDS ORDERED: FEE PK DOSING 1 MIN EA MC ONE (19:50)
[2020-05-09] MEDS ORDERED: AMIKACIN 450 MG in IV D5W 100 ML IV SCH (20:00)
[2020-05-09] MEDS ORDERED: AMIKACIN 450 MG in IV D5W 100 ML IV ONE (20:00)
--- NOTE | 2020-05-09 20:08 | NUR ---
ROPE TIER. INITIAL ASSESSMENT. RECEIVED THE PT TRACH TO VENT CONNECTED. SHILEY #6,TV 550,AC 12,FIO2 40%,PEEP 5. SAT 98%. ICING AND GLAZE MAKER SHOWING NSR. OPEN SURGICAL WOUND. GT INTACT.IV RT IJ HD CATH,RT UPPER ARM PICC LINE TPN 75ML/H,LIPID 21ML/H. HOB ELEVATED. DARLIN SOFT WRIST RESTRAINT CHECKED AND RELEASED, NO INJURY OR REDNESS NOTED, HOB ELEVATED. WILL CONTINUE TO MONITOR VITALS.
[2020-05-09] MEDS: COLISTIMETHATE SODIUM 75 MG in IV NS 0.9% 50 ML IV SCH (21:23)
[2020-05-09] MEDS: METRONIDAZOLE 500MG/ NS 100ML 500 MG in PREMIX 1 EA IV SCH (21:24)
[2020-05-09] MEDS: IV NS 0.9% 250 ML IV PRN (23:37)
[2020-05-10] VITALS (39 sets, daily range): BP systolic 88–138; BP diastolic 46–81
[2020-05-10] MEDS: METOCLOPRAMIDE HCL 10 MG/2 ML VIAL IV SCH ×4 (01:40→17:33)
[2020-05-10] MEDS: IPRATROPIUM NEB FS 0.5 MG/2.5 ML AMPUL.NEB NEB SCH ×4 (01:41→19:33)
--- NOTE | 2020-05-10 03:24 | NUR ---
CIRCULATION WORKER. AM CARE, ORAL CARE, BERD BATH GIVEN. LINEN CHANGED. REMAINING SAME VENT SETTING TOLERATED WELL. SAT 98%. NO ACUTE DISTRESS NOTED. CARDIAC MO NITOR SHOWING NSR. IV RT UPPER ARM PICC LINE IVF TPN LIPID 21ML/H. GT FEED NEPRO 10 ML/H STARTED, RT HAND WEEPING. HOB ELEVATED. WILL CONTINUE TO MONITOR VITALS
[2020-05-10] MEDS: METRONIDAZOLE 500MG/ NS 100ML 500 MG in PREMIX 1 EA IV SCH ×3 (04:26→21:07)
[2020-05-10 04:30] LABS: BASOPHILS % (AUTO) 0.2 % (0.0-2.0); HEMATOCRIT 24 % (33-45); HEMOGLOBIN 7.5 g/dL (11.5-14.8); LYMPHOCYTES # (AUTO) 0.5 /CMM (0.8-4.8); LYMPHOCYTES % (AUTO) 4.3 % (20.0-44.0); MEAN CORPUSCULAR HGB CONC 31 g/dl (31.0-36.0); MEAN CORPUSCULAR VOLUME 113 fL (82-100); MONOCYTES # (AUTO) 0.5 /CMM (0.1-1.30); MONOCYTES % (AUTO) 3.9 % (2.0-12.0); NEUTROPHILS # (AUTO) 11.7 /CMM (1.8-8.9); NEUTROPHILS % (AUTO) 91.6 % (43.0-81.0); PLATELET COUNT (AUTO) 198 /CMM (150-450); RED BLOOD CELL COUNT(AUTO) 2.12 MIL/uL (4.0-5.2); WHITE BLOOD COUNT (AUTO) 12.7 K/uL (4.3-11.0)
[2020-05-10 04:40] LABS: CALCIUM, SERUM 9.8 mg/dL (8.5-10.1); CARBON DIOXIDE 27 mmol/L (21-32); CHLORIDE 96 mmol/L (98-107); CREATININE 2.9 mg/dL (0.6-1.3); GLUCOSE 143 mg/dL (74-106); MAGNESIUM 2.1 mg/dL (1.8-2.4); PHOSPHORUS 3.7 mg/dL (2.5-4.9); POTASSIUM 4.2 mmol/L (3.5-5.1); SODIUM SERUM 131 mmol/L (136-145); UREA NITROGEN, BLOOD 70 mg/dL (7-18)
[2020-05-10] MEDS: BLOOD SUGAR DIAGNOSTIC 1 EACH STRIP IN SCH ×4 (06:33→18:00)
[2020-05-10] MEDS: LEVOTHYROXINE SODIUM 100 MCG TABLET GT SCH (06:36)
[2020-05-10] MEDS: INSULIN REGULAR, HUMAN 100 UNIT/ML 3 ML VIAL SQ PRN (06:44)
--- NOTE | 2020-05-10 06:48 | NUR ---
HAND ALMOND BLANCHER. FEEDING WAS LEAKING FROM THE SURGICAL OPEN WOUND SITE. DRESSING CHANGED
[2020-05-10] MEDS: CITALOPRAM HYDROBROMIDE 10 MG TABLET GT SCH (08:09)
[2020-05-10] MEDS: GLYCOPYRROLATE 1 MG TABLET GT SCH ×3 (08:09→13:51)
[2020-05-10] MEDS: ASCORBIC ACID 500 MG TABLET GT SCH (08:09)
[2020-05-10] MEDS: ERYTHROMYCIN ETHYLSUCCINATE 200 MG/5 ML SUSPENSION GT SCH ×3 (08:09→13:51)
[2020-05-10] MEDS: MULTIVITAMINS,THERAGRAN 1 UDTAB TABLET GT SCH (08:09)
[2020-05-10] MEDS: LACTULOSE 10 G/15 ML UDC (PYXIS) GT SCH ×2 (08:09→13:50)
[2020-05-10] MEDS: CALCIUM POLYCARBOPHIL 625 MG TABLET GT SCH ×2 (08:09→13:51)
[2020-05-10] MEDS: PROSOURCE / PROSTAT (PYXIS) 30 ML UDC GT SCH ×3 (08:09→13:51)
[2020-05-10] MEDS: PANTOPRAZOLE 40 MG VIAL IV SCH (08:27)
[2020-05-10] MEDS: MORPHINE SULFATE INJ 2 MG/ML DISP.SYRIN IM PRN ×2 (08:27→18:19)
[2020-05-10] MEDS: HYDROCORTISONE SOD SUCCINATE 100 MG/2 ML VIAL IV SCH ×3 (08:27→17:33)
--- NOTE | 2020-05-10 08:34 | NUR ---
WOUND CARE CONSULT: PT PRESENTS WITH SACRAL STAGE 3 ULCER WHICH EXTENDS TO BUTTOCKS (PRESENT ON ADMISSION STAGE 2 SACRAL AND LEFT BUTTOCK ULCERS), PROFOUND GENERALIZED EDEMA WITH WEEPING OF RT ARM, SURGICAL SITES TO ABDOMEN X 2. PER NIGHT RN, TUBE FEEDING LEAKED INTO ABDOMINAL WOUND WHEN NEW G TUBE SITE WAS USED FOR FEEDING. DR BRONSON NOTIFIED BY PENSION ADVISER (HAND TOUCH UP PAINTER) AND G TUBE NOT TO BE USED AT THIS TIME. PT IS ON TPN. NEW WOUND CARE ORDERS RECEIVED FOR ABDOMINAL WOUNDS AND DISCUSSED WITH NURSING STAFF. FIRST STEP LOW AIRLOSS MATTRESS ON ORDER. WILL SEE PRN. IN AGREEMENT WITH PLAN OF CARE. Addendum: 05/10/20 at 0838 by THU TUCKER WNDNU Amended: Links added.
--- NOTE | 2020-05-10 08:35 | NUR ---
Hilda Celaya notified of reports of Gtube feeding leaking from (large, open) abdominal surgical wound. Order placed to not use GTF. New wound care orders implemented.
[2020-05-10] MEDS: CLOTRIMAZOLE 1% 15 GM TUBE TP SCH ×2 (09:00→21:11)
[2020-05-10] MEDS: DAKINS QUARTER STRENGTH (0.125%) 480 ML BOTTLE TOP SCH ×3 (09:00→21:08)
[2020-05-10] MEDS: HYDROGEL DRESSING 90 GM TUBE TP SCH (09:00)
[2020-05-10] MEDS: MUPIROCIN OINT 2% 22 GM TUBE SCH ×2 (09:00→21:11)
[2020-05-10] MEDS ORDERED: TPN BAG #16 IV PRN ×3 (14:30)
--- NOTE | 2020-05-10 17:11 | NUR ---
RT NOTE: RECEIVED TRACH PT ON NOTED ORDERED VENT SETTINGS. NO RESPIRATORY DISTRESS NOTED. TRACH CHECKED SECURE AND PATENT. SXD AND LAVAGE Q ROUND AND NEEDED. TXS GIVEN ORDERED WITH NO ADVERSE REACTIONS NOTED. TRACH CARE DONE. EMERGENCY EQUIPMENT @ BEDSIDE. ALARMS CHECKED ON AND AUDIBLE. VENT PLUGGED INTO RED OUTLET.
[2020-05-10] MEDS ORDERED: VANCOMYCIN 1 GM in IV D5W 250 ML IV ONE (18:00)
--- NOTE | 2020-05-10 19:00 | NUR ---
RECEIVED PATIENT AWAKE.ALERT, CALM ,FOLLOWS SIMPLE COMMANDS,SEEMS TO UNDERSTAND.WITH TRACHEOSTOMY TO THE VENTILATOR ON AC MODE.NOT IN ANY DISTRESS,BREATHING REGULAR AND NON LABORED.+ GENERALIZED GROSS EDEMA, ABDOMINAL DRESSING DRY AND INTACT,(-) BLEEDING.G TUBE IN PLACE ,CLAMPED NOT TO BE USED DUE TO LEAKAGE.PICC LINE VIA CHRISTINA INTACT WITH GOOD BLOOD RETURN.COMFORT CARE DONE,NEEDS ATTENDED.
[2020-05-10] MEDS: COLISTIMETHATE SODIUM 75 MG in IV NS 0.9% 50 ML IV SCH (20:13)
[2020-05-10] MEDS ORDERED: POTASSIUM PHOSPHATE MM 7.5 MMOL in IV D5W 100 ML IV SCH (22:00)
[2020-05-10] MEDS: Magnesium 1GM/D5W 100ML PREMIX 100 ML IV SCH (23:01)
[2020-05-11] VITALS (36 sets, daily range): BP systolic 85–116; BP diastolic 43–62
--- NOTE | 2020-05-11 | NUR ---
REMAINS STABLE,NO CHANGE,ASLEEP BUT EASILY AWAKENS,NOT IN NAY DISTRESS
[2020-05-11] MEDS: Magnesium 1GM/D5W 100ML PREMIX 100 ML IV SCH (00:09)
[2020-05-11] MEDS: METOCLOPRAMIDE HCL 10 MG/2 ML VIAL IV SCH ×5 (00:11→23:09)
[2020-05-11] MEDS: BLOOD SUGAR DIAGNOSTIC 1 EACH STRIP IN SCH ×5 (00:19→23:22)
[2020-05-11] MEDS: INSULIN REGULAR, HUMAN 100 UNIT/ML 3 ML VIAL SQ PRN ×3 (00:23→23:24)
[2020-05-11] MEDS: IPRATROPIUM NEB FS 0.5 MG/2.5 ML AMPUL.NEB NEB SCH ×4 (01:13→19:59)
--- NOTE | 2020-05-11 02:00 | NUR ---
REMAINS STABLE,NOT IN ANY DISTRESS.
[2020-05-11] MEDS: MORPHINE SULFATE INJ 2 MG/ML DISP.SYRIN IM PRN (03:11)
[2020-05-11] MEDS ORDERED: TPN BAG #17 IV PRN ×4 (04:00)
--- NOTE | 2020-05-11 04:00 | NUR ---
ABDOMINAL DRESSING CHANGED,PACK WITH DAIKIN'S SOLUTION /KERLIX/ABD PAD. AM BATH DONE.
[2020-05-11 04:19] LABS: BASOPHILS % (AUTO) 0.5 % (0.0-2.0); HEMATOCRIT 23 % (33-45); HEMOGLOBIN 7.1 g/dL (11.5-14.8); LYMPHOCYTES # (AUTO) 0.4 /CMM (0.8-4.8); LYMPHOCYTES % (AUTO) 4.5 % (20.0-44.0); MEAN CORPUSCULAR HGB CONC 32 g/dl (31.0-36.0); MEAN CORPUSCULAR VOLUME 113 fL (82-100); MONOCYTES # (AUTO) 0.4 /CMM (0.1-1.30); MONOCYTES % (AUTO) 4.2 % (2.0-12.0); NEUTROPHILS # (AUTO) 8.9 /CMM (1.8-8.9); NEUTROPHILS % (AUTO) 90.8 % (43.0-81.0); PLATELET COUNT (AUTO) 170 /CMM (150-450); WHITE BLOOD COUNT (AUTO) 9.8 K/uL (4.3-11.0)
[2020-05-11 04:35] LABS: RED BLOOD CELL COUNT(AUTO) 1.99 MIL/uL (4.0-5.2)
[2020-05-11 04:44] LABS: CALCIUM, SERUM 9.9 mg/dL (8.5-10.1); CARBON DIOXIDE 31 mmol/L (21-32); CHLORIDE 100 mmol/L (98-107); CREATININE 2.3 mg/dL (0.6-1.3); GLUCOSE 132 mg/dL (74-106); MAGNESIUM 2.3 mg/dL (1.8-2.4); PHOSPHORUS 4.1 mg/dL (2.5-4.9); POTASSIUM 4.1 mmol/L (3.5-5.1); SODIUM SERUM 135 mmol/L (136-145); UREA NITROGEN, BLOOD 69 mg/dL (7-18)
[2020-05-11] MEDS: METRONIDAZOLE 500MG/ NS 100ML 500 MG in PREMIX 1 EA IV SCH ×3 (05:02→20:37)
[2020-05-11] MEDS: IV NS 0.9% 250 ML IV PRN (05:10)
[2020-05-11] MEDS: LEVOTHYROXINE SODIUM 100 MCG TABLET GT SCH (06:59)
--- NOTE | 2020-05-11 07:00 | NUR ---
STABLE,AWAKE,ALERT.REPORT GIVEN TO MATEUS QUILES
[2020-05-11] MEDS: LACTULOSE 10 G/15 ML UDC (PYXIS) GT SCH ×2 (08:16→15:49)
[2020-05-11] MEDS: CITALOPRAM HYDROBROMIDE 10 MG TABLET GT SCH (08:16)
[2020-05-11] MEDS: CALCIUM POLYCARBOPHIL 625 MG TABLET GT SCH ×2 (08:17→15:49)
[2020-05-11] MEDS: ERYTHROMYCIN ETHYLSUCCINATE 200 MG/5 ML SUSPENSION GT SCH ×3 (08:17→15:49)
[2020-05-11] MEDS: MULTIVITAMINS,THERAGRAN 1 UDTAB TABLET GT SCH (08:17)
[2020-05-11] MEDS: GLYCOPYRROLATE 1 MG TABLET GT SCH ×3 (08:17→15:49)
[2020-05-11] MEDS: ASCORBIC ACID 500 MG TABLET GT SCH (08:17)
[2020-05-11] MEDS: MUPIROCIN OINT 2% 22 GM TUBE SCH ×2 (08:27→20:38)
[2020-05-11] MEDS: HYDROGEL DRESSING 90 GM TUBE TP SCH (08:27)
[2020-05-11] MEDS: DAKINS QUARTER STRENGTH (0.125%) 480 ML BOTTLE TOP SCH ×2 (08:27→20:38)
[2020-05-11] MEDS: PANTOPRAZOLE 40 MG VIAL IV SCH (08:27)
[2020-05-11] MEDS: CLOTRIMAZOLE 1% 15 GM TUBE TP SCH ×2 (08:27→20:39)
[2020-05-11] MEDS: HYDROCORTISONE SOD SUCCINATE 100 MG/2 ML VIAL IV SCH ×3 (08:27→17:26)
[2020-05-11] MEDS ORDERED: TPN BAG #18 IV PRN ×4 (16:00)
[2020-05-11] MEDS: FAT EMULSION 20% 500 ML in PREMIX 1 EA IV SCH (16:17)
--- NOTE | 2020-05-11 19:15 | NUR ---
EXECUTIVE VICE PRESIDENT AND CHIEF FINANCIAL OFFICER OPENING NOTE: Received pt resting in bed, opens eyes and responds to name. On mechanical ventilation setting as ordered tolerating well. No SOB or respiratory distress noted. SR on tele monitor. GT clamped cannot be use even on meds until further order. Pt NPO. On LINE INSTALLATION SUPERVISOR restraints for prevention of self extubation. CHRISTINA PICC line patent and flushing. On TPN infusing at 76ml/hr and Lipids @ 20ml/hr x24h.with RIJ hd catheter c/d/i. Safety measures in place. Will continue to monitor.
[2020-05-11] MEDS: COLISTIMETHATE SODIUM 75 MG in IV NS 0.9% 50 ML IV SCH (20:06)
[2020-05-11] MEDS ORDERED: TPN BAG #19 IV PRN ×2 (23:00)
[2020-05-12] VITALS (35 sets, daily range): BP systolic 89–133; BP diastolic 37–69
[2020-05-12] MEDS: MORPHINE SULFATE INJ 2 MG/ML DISP.SYRIN IM PRN ×2 (00:59→17:08)
[2020-05-12] MEDS: IV NS 0.9% 250 ML IV PRN (01:00)
[2020-05-12] MEDS: LORAZEPAM INJ 2 MG/ML VIAL IV PRN (01:34)
[2020-05-12] MEDS: IPRATROPIUM NEB FS 0.5 MG/2.5 ML AMPUL.NEB NEB SCH ×4 (02:27→19:20)
[2020-05-12] MEDS: METRONIDAZOLE 500MG/ NS 100ML 500 MG in PREMIX 1 EA IV SCH ×3 (04:02→21:23)
[2020-05-12] MEDS: Z GUARD REMEDY 2 OZ OINT TP PRN (04:03)
[2020-05-12 04:16] LABS: BASOPHILS % (AUTO) 0.2 % (0.0-2.0); HEMATOCRIT 22 % (33-45); HEMOGLOBIN 7.1 g/dL (11.5-14.8); LYMPHOCYTES # (AUTO) 0.5 /CMM (0.8-4.8); LYMPHOCYTES % (AUTO) 4.8 % (20.0-44.0); MEAN CORPUSCULAR HGB CONC 32 g/dl (31.0-36.0); MEAN CORPUSCULAR VOLUME 115 fL (82-100); MONOCYTES # (AUTO) 0.3 /CMM (0.1-1.30); MONOCYTES % (AUTO) 3.2 % (2.0-12.0); NEUTROPHILS # (AUTO) 8.9 /CMM (1.8-8.9); NEUTROPHILS % (AUTO) 91.8 % (43.0-81.0); PLATELET COUNT (AUTO) 175 /CMM (150-450); WHITE BLOOD COUNT (AUTO) 9.7 K/uL (4.3-11.0)
[2020-05-12 04:50] LABS: CALCIUM, SERUM 9.3 mg/dL (8.5-10.1); CARBON DIOXIDE 29 mmol/L (21-32); CHLORIDE 98 mmol/L (98-107); CREATININE 2.5 mg/dL (0.6-1.3); GLUCOSE 125 mg/dL (74-106); MAGNESIUM 2.2 mg/dL (1.8-2.4); PHOSPHORUS 4.3 mg/dL (2.5-4.9); POTASSIUM 4.3 mmol/L (3.5-5.1); SODIUM SERUM 132 mmol/L (136-145)
[2020-05-12 04:54] LABS: UREA NITROGEN, BLOOD 85 mg/dL (7-18)
[2020-05-12] MEDS: BLOOD SUGAR DIAGNOSTIC 1 EACH STRIP IN SCH ×4 (05:23→23:48)
[2020-05-12] MEDS: METOCLOPRAMIDE HCL 10 MG/2 ML VIAL IV SCH ×4 (05:23→23:48)
[2020-05-12] MEDS: INSULIN REGULAR, HUMAN 100 UNIT/ML 3 ML VIAL SQ PRN (05:24)
--- NOTE | 2020-05-12 06:59 | NUR ---
RN CLOSING NOTES PT ON BED ASLEEP NO SIGN AND SYMPTOMS OF RESPIRATORY DISTRESS SPO2>92% BEDSIDE MONITOR READ SINUS RHYTHM , NO SIGNIFICANT CHANGES ON CONDITION NOTED, CONTACT MAINTAINED FOR MDRO ON WOUND C/S, WOUND CARE DONE ORDERED ALL NEEDS ATTENDED SAFETY MEASURE MAINTAINED WILL ENDORSED TO AM SHIFT NURSE
--- NOTE | 2020-05-12 07:20 | NUR ---
RN OPENING NOTE Received patient asleep in appears calm and relaxed. On trach Shiley 6 vent settings: AC 12, tv 550 fio2 40% peep 5 tolerating well. No signs of distress. Patient non verbal, opens eyes spontaneously. AO x1. Will cont to monitor foe mental status. Tele reading SR 80s. Patient has GT no feeding at this time and until further orders. Last HD was 05/10/20 1L taken out. Has CHRISTINA PICC line flushes running TPN @ 76ml/hr and Lipid @ 21ml/hr and Celso Perry. Safety measures reinforced. Bed locked and on lowest position. Call light within reach. Side rails up x2. Will cont to monitor Addendum: 05/12/20 at 0954 by FLOWER BARRERA RN patient has Mohit perry
[2020-05-12] MEDS: LEVOTHYROXINE INJ 100 MCG VIAL IV SCH (07:50)
[2020-05-12] MEDS ORDERED: EPOETIN ALFA (10,000 UNIT) 10,000 UNIT/ML VIAL SQ PRN (08:00)
[2020-05-12] MEDS ORDERED: TPN BAG #21 IV PRN ×2 (08:00)
[2020-05-12] MEDS: HYDROCORTISONE SOD SUCCINATE 100 MG/2 ML VIAL IV SCH ×3 (08:18→17:05)
[2020-05-12] MEDS: PANTOPRAZOLE 40 MG VIAL IV SCH (08:18)
[2020-05-12] MEDS: MULTIVITAMINS,THERAGRAN 1 UDTAB TABLET GT SCH (09:00)
[2020-05-12] MEDS: CITALOPRAM HYDROBROMIDE 10 MG TABLET GT SCH (09:00)
[2020-05-12] MEDS: LACTULOSE 10 G/15 ML UDC (PYXIS) GT SCH ×2 (09:00→17:00)
[2020-05-12] MEDS: CALCIUM POLYCARBOPHIL 625 MG TABLET GT SCH ×2 (09:00→17:00)
[2020-05-12] MEDS: ASCORBIC ACID 500 MG TABLET GT SCH (09:00)
[2020-05-12] MEDS: GLYCOPYRROLATE 1 MG TABLET GT SCH ×3 (09:00→17:00)
[2020-05-12] MEDS: ERYTHROMYCIN ETHYLSUCCINATE 200 MG/5 ML SUSPENSION GT SCH ×3 (09:00→17:00)
[2020-05-12] MEDS: HYDROGEL DRESSING 90 GM TUBE TP SCH (09:19)
[2020-05-12] MEDS: MUPIROCIN OINT 2% 22 GM TUBE SCH ×2 (09:19→22:04)
[2020-05-12] MEDS: DAKINS QUARTER STRENGTH (0.125%) 480 ML BOTTLE TOP SCH ×2 (09:19→21:49)
[2020-05-12] MEDS: CLOTRIMAZOLE 1% 15 GM TUBE TP SCH ×2 (09:20→21:49)
[2020-05-12] MEDS: THERAHONEY GEL 1.5 OZ TUBE TP SCH (17:05)
[2020-05-12] MEDS ORDERED: TPN BAG #20 IV PRN ×4 (18:00)
[2020-05-12] MEDS: AMIKACIN 450 MG in IV D5W 100 ML IV PRN (19:12)
--- NOTE | 2020-05-12 19:15 | NUR ---
AMIKIN ADMINISTERED TO PATIENT PER PHARMACY OK TO GIVE
--- NOTE | 2020-05-12 19:20 | NUR ---
TPN #20 SCANNED AND HANGED TO PATIENT.
--- NOTE | 2020-05-12 19:21 | NUR ---
RT NOTES PT RECEIVED TRACHED WITH SHILLEY [address] [facility] VENT ON ORDERED VENT SETTINGS. NO SIGNS OF RESP DISTRESS NOTED AT THIS TIME. AIRWAY PATENT AND SECURED. RESIDENT INTERN DONE. SUCTIONED MODERATE AMOUNT OF THICK, YELLOW SECRETIONS. ALARMS SET AND AUDIBLE. AMBUBAG AT BESIDE. VENT CONT TO RED OUTLET. WILL CONT TO MONITOR. Addendum: 05/12/20 at 2242 by OSVALDO ANNE RT Amended: Links added.
--- NOTE | 2020-05-12 19:40 | NUR ---
RN CLOSING NOTE Patient in bed calm and relax no signs of distress. All due meds given. Vital signs within normal limits. Endorsed to shift leader nurse for anthony.
[2020-05-12] MEDS: COLISTIMETHATE SODIUM 75 MG in IV NS 0.9% 50 ML IV SCH (21:22)
[2020-05-12] MEDS ORDERED: METOCLOPRAMIDE HCL 10 MG/2 ML VIAL ONE (23:19)
[2020-05-12] MEDS: VANCOMYCIN 500 MG in IV D5W 100 ML IV PRN (23:53)
[2020-05-13] VITALS (49 sets, daily range): BP systolic 97–154; BP diastolic 50–122
[2020-05-13] MEDS: IPRATROPIUM NEB FS 0.5 MG/2.5 ML AMPUL.NEB NEB SCH ×4 (01:11→19:18)
[2020-05-13 04:22] LABS: BASOPHILS % (AUTO) 0.1 % (0.0-2.0); HEMATOCRIT 22 % (33-45); LYMPHOCYTES # (AUTO) 0.4 /CMM (0.8-4.8); LYMPHOCYTES % (AUTO) 4.5 % (20.0-44.0); MEAN CORPUSCULAR HGB CONC 31 g/dl (31.0-36.0); MEAN CORPUSCULAR VOLUME 116 fL (82-100); MONOCYTES # (AUTO) 0.5 /CMM (0.1-1.30); MONOCYTES % (AUTO) 5.2 % (2.0-12.0); NEUTROPHILS % (AUTO) 90.2 % (43.0-81.0); PLATELET COUNT (AUTO) 170 /CMM (150-450)
[2020-05-13 05:20] LABS: RED BLOOD CELL COUNT(AUTO) 1.92 MIL/uL (4.0-5.2)
[2020-05-13 05:22] LABS: HEMOGLOBIN 6.8 g/dL (11.5-14.8)
[2020-05-13 05:25] LABS: LYMPHOCYTES % (MANUAL) 3 % (16-48); MONOCYTES % (MANUAL) 4 % (0-11.0); NEUTROPHILS % (MANUAL) 93 (42-76)
[2020-05-13] MEDS: METRONIDAZOLE 500MG/ NS 100ML 500 MG in PREMIX 1 EA IV SCH ×3 (05:25→22:35)
[2020-05-13] MEDS: LORAZEPAM INJ 2 MG/ML VIAL IV PRN (05:25)
[2020-05-13] MEDS: BLOOD SUGAR DIAGNOSTIC 1 EACH STRIP IN SCH ×3 (05:28→18:08)
[2020-05-13] MEDS: INSULIN REGULAR, HUMAN 100 UNIT/ML 3 ML VIAL SQ PRN (05:30)
[2020-05-13] MEDS: METOCLOPRAMIDE HCL 10 MG/2 ML VIAL IV SCH ×3 (05:37→18:09)
[2020-05-13 06:26] LABS: ALANINE AMINOTRANSFERASE 16 U/L (12-78); ALKALINE PHOSPHATASE 199 U/L (46-116); ASPARTATE AMINOTRANSFERASE 24 U/L (15-37); BILIRUBIN,TOTAL 0.8 mg/dL (0.2-1.0); CALCIUM, SERUM 9.7 mg/dL (8.5-10.1); CARBON DIOXIDE 27 mmol/L (21-32); CHLORIDE 100 mmol/L (98-107); CREATININE 2.3 mg/dL (0.6-1.3); GLUCOSE 126 mg/dL (74-106); MAGNESIUM 2.2 mg/dL (1.8-2.4); PHOSPHORUS 4.2 mg/dL (2.5-4.9); POTASSIUM 4.2 mmol/L (3.5-5.1); SODIUM SERUM 135 mmol/L (136-145); TOTAL PROTEIN, SERUM 5.4 g/dL (6.4-8.2); UREA NITROGEN, BLOOD 75 mg/dL (7-18)
[2020-05-13 06:32] LABS: ALBUMIN 1.4 g/dL (3.4-5.0)
[2020-05-13] MEDS ORDERED: ALBUMIN 25% 12.5 GM/50 ML BOTTLE IV ONE (07:00)
[2020-05-13] MEDS: LEVOTHYROXINE INJ 100 MCG VIAL IV SCH ×2 (07:44→08:00)
--- NOTE | 2020-05-13 07:47 | NUR ---
RN notes Alert, awake in bed with no complaint of pain or discomfort. Critical lab reported by lab for Hgb of 6.8 and Albumin 1.4. Called and spoke to Migdalia with orders noted. Endorsed to next shift for continuity of care
--- NOTE | 2020-05-13 07:50 | NUR ---
ASP WEB DEVELOPER: pt is A/Ox1,2, grimacing, c/o abdomen wound pain 03/20, dressing is saturated with s/s discharge, no external bleeding by KB Stafford report, H/H 6.07/02, PILAR Reyes ordered one PRBC, pt is on wrists restraints for self extubation prevention by report, cooperative now, SR, SBP is over 90/below 160, HD done yesterday, ? next HD, anuric, O2sat. over 96%, no SOB, no distress reported, FiO2 40%, getting TPN, T WNL, GI: strict NPO, by report: plans second surgery on Saturday, abd wound surgery, evaluation for possible GT fistula, abdomen w/c by report: NS, Dakins solution, kerlix roll, 4x4, ABD qshift, TT some air leak: no new by report, O2sat. WNL, suctione dwell
--- NOTE | 2020-05-13 08:02 | NUR ---
AIR DUCT MECHANIC: dropped Levothyroxine vial on floor, wasted
--- NOTE | 2020-05-13 08:20 | NUR ---
EDUCATION AND TRAINING COORDINATOR: two orders (PILAR Reyes, )for one PRBC unit are in comp, verified with , confirmed: total one PRBC unit transfusion order
[2020-05-13] MEDS: MULTIVITAMINS,THERAGRAN 1 UDTAB TABLET GT SCH (09:00)
[2020-05-13] MEDS: CALCIUM POLYCARBOPHIL 625 MG TABLET GT SCH ×2 (09:00→16:54)
[2020-05-13] MEDS: LACTULOSE 10 G/15 ML UDC (PYXIS) GT SCH ×2 (09:00→16:55)
[2020-05-13] MEDS: CITALOPRAM HYDROBROMIDE 10 MG TABLET GT SCH (09:00)
[2020-05-13] MEDS: ASCORBIC ACID 500 MG TABLET GT SCH (09:00)
[2020-05-13] MEDS: ERYTHROMYCIN ETHYLSUCCINATE 200 MG/5 ML SUSPENSION GT SCH ×3 (09:00→16:54)
[2020-05-13] MEDS ORDERED: ALBUMIN 25% 25 GM in PREMIX 1 EA IV ONE (09:00)
--- NOTE | 2020-05-13 09:00 | NUR ---
SENIOR TECHNICAL ARCHITECT: PILAR Conner is in room/updated with pt.current condition, VS, O2sat., I/O, NPO, TPN, labs, H/H/one PRBC unit order, wounds status and amount of drain, plan for second surgery by mary anne Wheeler, HD 05/12, no pressors, Albumin 25%-25gm order, meds, pain level, going to order three more Albumin doses, see new orders
[2020-05-13] MEDS: GLYCOPYRROLATE 1 MG TABLET GT SCH ×3 (09:03→16:55)
[2020-05-13] MEDS: HYDROGEL DRESSING 90 GM TUBE TP PRN (09:26)
[2020-05-13] MEDS: HYDROGEL DRESSING 90 GM TUBE TP SCH (09:26)
[2020-05-13] MEDS: Z GUARD REMEDY 2 OZ OINT TP PRN (09:27)
[2020-05-13] MEDS: THERAHONEY GEL 1.5 OZ TUBE TP SCH (09:27)
[2020-05-13] MEDS: CLOTRIMAZOLE 1% 15 GM TUBE TP SCH ×2 (09:28→23:29)
[2020-05-13] MEDS: DAKINS QUARTER STRENGTH (0.125%) 480 ML BOTTLE TOP SCH ×2 (09:29→23:29)
[2020-05-13] MEDS: MUPIROCIN OINT 2% 22 GM TUBE SCH ×2 (09:29→23:29)
--- NOTE | 2020-05-13 09:30 | NUR ---
TEST TUBE MAKER: Levothyroxine 100 ncg IV dose given
[2020-05-13] MEDS: PANTOPRAZOLE 40 MG VIAL IV SCH (09:33)
[2020-05-13] MEDS: HYDROCORTISONE SOD SUCCINATE 100 MG/2 ML VIAL IV SCH ×3 (09:33→16:58)
[2020-05-13] MEDS: MORPHINE SULFATE INJ 2 MG/ML DISP.SYRIN IM PRN ×2 (09:34→13:40)
[2020-05-13] MEDS ORDERED: ALBUMIN 25% 25 GM in PREMIX 1 EA IV SCH (10:16)
--- NOTE | 2020-05-13 11:20 | NUR ---
MANAGER MARKET: updated with pt current codition, NS, I/O, NPO, HD, TPN, suctions amount, wounds, POC, see new order. Called to lab/BB: one PRBC unit ordered today because in comp.2 units showing
[2020-05-13 11:56] LABS: BASOPHILS % (AUTO) 0.1 % (0.0-2.0); EOSINOPHILS % (AUTO) 0.2 % (0.0-6.0); HEMATOCRIT 23 % (33-45); LYMPHOCYTES # (AUTO) 0.6 /CMM (0.8-4.8); LYMPHOCYTES % (AUTO) 4.5 % (20.0-44.0); MEAN CORPUSCULAR HGB CONC 30 g/dl (31.0-36.0); MEAN CORPUSCULAR VOLUME 116 fL (82-100); MONOCYTES # (AUTO) 0.5 /CMM (0.1-1.30); MONOCYTES % (AUTO) 3.6 % (2.0-12.0); NEUTROPHILS # (AUTO) 11.6 /CMM (1.8-8.9); NEUTROPHILS % (AUTO) 91.6 % (43.0-81.0); PLATELET COUNT (AUTO) 173 /CMM (150-450); WHITE BLOOD COUNT (AUTO) 12.6 K/uL (4.3-11.0)
[2020-05-13 12:00] LABS: RED BLOOD CELL COUNT(AUTO) 1.94 MIL/uL (4.0-5.2)
[2020-05-13 12:01] LABS: HEMOGLOBIN 6.7 g/dL (11.5-14.8)
--- NOTE | 2020-05-13 12:03 | NUR ---
HAIR WEAVER: Hb 6.7 now/6.8 before, pt is waiting one PRBC BT
[2020-05-13 12:38] LABS: LYMPHOCYTES % (MANUAL) 3 % (16-48); MONOCYTES % (MANUAL) 4 % (0-11.0); NEUTROPHILS % (MANUAL) 93 (42-76)
--- NOTE | 2020-05-13 13:31 | NUR ---
REFINERY OPERATOR CRUDE UNIT: pt c/o abdomen wound pain 7-06/20, getting pain meds prn, BT started, all bedbath/wounds/PM care done
[2020-05-13] MEDS: FAT EMULSION 20% 500 ML in PREMIX 1 EA IV SCH (13:39)
[2020-05-13] MEDS ORDERED: TPN BAG #22 IV PRN ×4 (15:30)
--- NOTE | 2020-05-13 15:45 | NUR ---
INTEGRATION ENGINEER: PRBC unit given, tolerated well
[2020-05-13] MEDS ORDERED: TPN BAG #23 IV PRN ×2 (16:00)
[2020-05-13] MEDS: ALBUMIN 25% 25 GM in PREMIX 1 EA IV SCH (16:54)
--- NOTE | 2020-05-13 17:48 | NUR ---
BIOLOGY MANAGER: pt is A/Ox1, rest, SR, SBO over 90/below 150, O2sat. over 97%, no SOB/distress, suctioned well/lavage given with large thick secretion amount, RT notified, anuric, abdomen wound dressing is D/I, BG 129, all PM/bedbath/skin/wounds care done, pt is oriented for POC
--- NOTE | 2020-05-13 20:04 | NUR ---
RT NOTE PT RECEIVED TRACHED WITH SHILLEY 6 ON [facility] VENT ON ORDERED VENT SETTINGS. NO SIGNS OF RESP DISTRESS NOTED AT THIS TIME. AIRWAY PATENT AND SECURED. QUALITY SYSTEMS ENGINEER DONE. SUCTIONED MODERATE AMOUNT OF THICK, YELLOW SECRETIONS. ALARMS SET AND AUDIBLE. AMBUBAG AT BESIDE. VENT CONT TO RED OUTLET. WILL CONT TO MONITOR. Addendum: 05/13/20 at 2004 by MESERET ESPINOZA RT Amended: Links added.
[2020-05-13] MEDS: COLISTIMETHATE SODIUM 75 MG in IV NS 0.9% 50 ML IV SCH (22:35)
[2020-05-14] VITALS (87 sets, daily range): BP systolic 68–179; BP diastolic 27–101
[2020-05-14] MEDS: IPRATROPIUM NEB FS 0.5 MG/2.5 ML AMPUL.NEB NEB SCH ×4 (00:54→19:30)
[2020-05-14] MEDS: METOCLOPRAMIDE HCL 10 MG/2 ML VIAL IV SCH ×4 (01:08→17:22)
[2020-05-14] MEDS: BLOOD SUGAR DIAGNOSTIC 1 EACH STRIP IN SCH ×4 (01:15→17:22)
[2020-05-14] MEDS: ALBUMIN 25% 25 GM in PREMIX 1 EA IV SCH ×2 (01:15→08:54)
[2020-05-14] MEDS: INSULIN REGULAR, HUMAN 100 UNIT/ML 3 ML VIAL SQ PRN ×2 (01:19→07:25)
[2020-05-14] MEDS: MORPHINE SULFATE INJ 2 MG/ML DISP.SYRIN IM PRN ×2 (02:17→08:00)
[2020-05-14] MEDS: LORAZEPAM INJ 2 MG/ML VIAL IV PRN (04:17)
[2020-05-14 05:12] LABS: CALCIUM, SERUM 9.9 mg/dL (8.5-10.1); CARBON DIOXIDE 24 mmol/L (21-32); CHLORIDE 99 mmol/L (98-107); CREATININE 2.5 mg/dL (0.6-1.3); GLUCOSE 144 mg/dL (74-106); MAGNESIUM 2.3 mg/dL (1.8-2.4); PHOSPHORUS 4.4 mg/dL (2.5-4.9); SODIUM SERUM 133 mmol/L (136-145)
[2020-05-14 05:17] LABS: UREA NITROGEN, BLOOD 93 mg/dL (7-18)
[2020-05-14 05:21] LABS: BASOPHILS % (AUTO) 0.2 % (0.0-2.0); EOSINOPHILS % (AUTO) 0.1 % (0.0-6.0); HEMATOCRIT 27 % (33-45); HEMOGLOBIN 8.4 g/dL (11.5-14.8); LYMPHOCYTES # (AUTO) 0.4 /CMM (0.8-4.8); LYMPHOCYTES % (AUTO) 2.4 % (20.0-44.0); MEAN CORPUSCULAR HGB CONC 31 g/dl (31.0-36.0); MEAN CORPUSCULAR VOLUME 109 fL (82-100); MONOCYTES # (AUTO) 0.2 /CMM (0.1-1.30); MONOCYTES % (AUTO) 1.3 % (2.0-12.0); NEUTROPHILS # (AUTO) 16.5 /CMM (1.8-8.9); PLATELET COUNT (AUTO) 198 /CMM (150-450); RED BLOOD CELL COUNT(AUTO) 2.44 MIL/uL (4.0-5.2); WHITE BLOOD COUNT (AUTO) 17.1 K/uL (4.3-11.0)
[2020-05-14] MEDS: METRONIDAZOLE 500MG/ NS 100ML 500 MG in PREMIX 1 EA IV SCH ×3 (05:52→22:47)
--- NOTE | 2020-05-14 06:25 | NUR ---
RN notes Resting comfortably in bed . Eyes were open with eye tracking noted, In no apparent respiratory distress, breathing even and unlabored. Vent setting well tolerated. Suctioned large amount of thick yellowish secretion. Oral care done. Vital signs wnl. No physical manifestation of pain or discomfort. Stirct NPO. No significant change of condition. Kept clean and dry. Will endorse to next shift for continuity of care.
--- NOTE | 2020-05-14 07:12 | NUR ---
POLISHER AND SANDER: O2sat. 80-90%, asked night nurse Soniawmariaelena to check pt.before report
--- NOTE | 2020-05-14 07:15 | NUR ---
PICKING SUPERVISOR: O2sat. 70-80%, RR 30-35, called for RT, unable to get full report from night nurse KB Stafford, pt.is drowsy, reactive by name, suctioned again by KB Stafford
--- NOTE | 2020-05-14 07:18 | NUR ---
TRANSPORT TRUCK DRIVER: Ativan 1mg (04.00), Morphine 1mg (02.00) were given over night
--- NOTE | 2020-05-14 07:20 | NUR ---
HIM CODER: RT evaluated TT/no air leak, Tv ok, FiO2 up to 100%, ABG STAT, placed order for CXR STAT, ST 100-120, SBP 166, pt c/o abdomen wound pain 7-06/20, dressing is intact, TPN line is without filter, 06.30/stopped, lipids IV line is without filter/stopped/will call to pharmacy, notified charge nurse
--- NOTE | 2020-05-14 07:50 | NUR ---
MATTING PRESS TENDER: pt is very weak, awake/Ox1, Morphine 1 mg IM given, O2sat. 90-92% now, RR 28-31, ABG: pH 7.32/37/324/19, SR, H/H 8.4/27, no chest pain
[2020-05-14 07:56] LABS: ABG BASE EXCESS -6.3 mmol/L; ABG OXYGEN SATURATION 99.6 % (92.0-98.5); ABG PCO2 37.6 mmHg (35.0-45.0); ABG PH 7.324 (7.350-7.450); ABG PO2 324.9 mmHg (75.0-100.0); AaDO2 350.5 mmHg; COHb 0.8 % (0.5-1.5); MetHb 0.1 % (0.0-1.5); O2Hb 98.7 % (94.0-97.0); PEEP,BG 5 cm H2O; SITE, ABG Left Brachial; VT, ABG 550 mL
[2020-05-14] MEDS: LEVOTHYROXINE INJ 100 MCG VIAL IV SCH (08:01)
--- NOTE | 2020-05-14 08:25 | NUR ---
ECHOCARDIOLOGIST: PILAR Conner is in room, updated with pt.current condition, desaturation episode, ABG, VS, neurostatus, I/O, TPN, wounds status, pain level, labs, meds, HD, see new orders
--- NOTE | 2020-05-14 08:28 | NUR ---
FARM TRUCK DRIVER: no any order in comp for second surgery on Saturday f/u POC/report, PILAR Conner is going to speak with KANCHAN Sorenson/ to verify surgery time. called before/updated
[2020-05-14] MEDS: PANTOPRAZOLE 40 MG VIAL IV SCH (08:53)
[2020-05-14] MEDS: HYDROCORTISONE SOD SUCCINATE 100 MG/2 ML VIAL IV SCH ×3 (08:54→17:01)
[2020-05-14] MEDS: HYDROGEL DRESSING 90 GM TUBE TP PRN (08:56)
[2020-05-14] MEDS: THERAHONEY GEL 1.5 OZ TUBE TP SCH (08:56)
[2020-05-14] MEDS: HYDROGEL DRESSING 90 GM TUBE TP SCH (08:57)
[2020-05-14] MEDS: CLOTRIMAZOLE 1% 15 GM TUBE TP SCH (08:58)
[2020-05-14] MEDS: CITALOPRAM HYDROBROMIDE 10 MG TABLET GT SCH (09:00)
[2020-05-14] MEDS: MULTIVITAMINS,THERAGRAN 1 UDTAB TABLET GT SCH (09:00)
[2020-05-14] MEDS: GLYCOPYRROLATE 1 MG TABLET GT SCH ×3 (09:00→17:00)
[2020-05-14] MEDS: ASCORBIC ACID 500 MG TABLET GT SCH (09:00)
[2020-05-14] MEDS: ERYTHROMYCIN ETHYLSUCCINATE 200 MG/5 ML SUSPENSION GT SCH ×3 (09:00→17:00)
[2020-05-14] MEDS: LACTULOSE 10 G/15 ML UDC (PYXIS) GT SCH ×2 (09:00→17:00)
[2020-05-14] MEDS: CALCIUM POLYCARBOPHIL 625 MG TABLET GT SCH ×2 (09:00→17:00)
--- NOTE | 2020-05-14 09:00 | NUR ---
QI SPECIALIST: is in room, updated with pt.condition, VS, desaturation episode, ABG, vent setting, O2sat., FiO2 100% now, HD done on 05/12, CXR done, said: ok to titrate FiO2, continue 80% now, see new orders
[2020-05-14] MEDS: MUPIROCIN OINT 2% 22 GM TUBE SCH (09:02)
--- NOTE | 2020-05-14 10:05 | NUR ---
WIRELESS RETAIL MANAGER: called to pharmacy to get levophed bag
--- NOTE | 2020-05-14 10:25 | NUR ---
PASSENGER INTERLINE CLERK: started Levophed gtt, HD nurse is room, updated with pt history, VS, meds, labs, started HD
[2020-05-14] MEDS: NOREPINEPHRINE 8 MG in IV NS 0.9% 242 ML IV PRN (10:26)
--- NOTE | 2020-05-14 11:48 | NUR ---
PEANUT PICKER: HD done/1L out, ST 100-120, BP 112/57 on 0.07 mcg.kg.m Levophed gtt, pt.is with open eyes, rest, short eyes contact, grimacing by touch, obtunded, O2sat. over 96%, RR 20-24, FiO2 80%, RT is aware re visit
[2020-05-14] MEDS: DAKINS QUARTER STRENGTH (0.125%) 480 ML BOTTLE TOP SCH (13:15)
[2020-05-14] MEDS ORDERED: TPN BAG #24 IV PRN ×2 (14:30)
[2020-05-14] MEDS ORDERED: TPN BAG #25 IV PRN ×4 (14:30)
[2020-05-14] MEDS: VANCOMYCIN 500 MG in IV D5W 100 ML IV PRN (14:35)
--- NOTE | 2020-05-14 14:58 | NUR ---
CRUSHER PLANT OPERATOR: abdomen wound care done, continue titrate Levophed gtt, ST 100-110, O2sat. over 96%, RR 20-22 now, FiO2 60%, pt.is with open eyes, very short eyes contact 1-3 sec by touch, was grimacing with wound care/suction, trace/weak arms/legs activity, obtunded, unable to follow commands, no tracking reaction, suctioned well with very thick large amount of secretion out, Vanco PB IV given
--- NOTE | 2020-05-14 17:42 | NUR ---
BAND BUILDER: pt is obtunded, very weak, with open eyes but no eyes contact, grimacing with touch/reposition/suction, very weak arms activity, unable to follow commands, no evidence of pain now, ST 100-110, on Levophed gtt/continue titrate, 0.06 mcg/kg/m now, O2sat. over 98%, RR 19-22, RT decreased FiO2 to 40%, BG 122, all PM/skin/bedbath/wounds care done, called to pharmacy for Levo bag for night time
[2020-05-14] MEDS: COLISTIMETHATE SODIUM 75 MG in IV NS 0.9% 50 ML IV SCH (22:45)
[2020-05-15] VITALS (71 sets, daily range): BP systolic 86–151; BP diastolic 45–93
[2020-05-15] MEDS: DAKINS QUARTER STRENGTH (0.125%) 480 ML BOTTLE TOP SCH ×2 (00:03→08:16)
[2020-05-15] MEDS: MUPIROCIN OINT 2% 22 GM TUBE SCH ×3 (00:04→21:54)
[2020-05-15] MEDS: MORPHINE SULFATE INJ 2 MG/ML DISP.SYRIN IM PRN (00:07)
[2020-05-15] MEDS: INSULIN REGULAR, HUMAN 100 UNIT/ML 3 ML VIAL SQ PRN ×3 (00:16→17:40)
[2020-05-15] MEDS: BLOOD SUGAR DIAGNOSTIC 1 EACH STRIP IN SCH ×4 (00:16→17:13)
[2020-05-15] MEDS: METOCLOPRAMIDE HCL 10 MG/2 ML VIAL IV SCH ×4 (00:19→17:13)
[2020-05-15] MEDS: CLOTRIMAZOLE 1% 15 GM TUBE TP SCH ×3 (00:27→21:53)
[2020-05-15] MEDS: IPRATROPIUM NEB FS 0.5 MG/2.5 ML AMPUL.NEB NEB SCH ×4 (01:30→19:50)
[2020-05-15] MEDS: METRONIDAZOLE 500MG/ NS 100ML 500 MG in PREMIX 1 EA IV SCH ×3 (04:29→21:06)
[2020-05-15 04:40] LABS: BASOPHILS # (AUTO) 0.1 /CMM (0.0-0.2); BASOPHILS % (AUTO) 0.4 % (0.0-2.0); HEMATOCRIT 24 % (33-45); HEMOGLOBIN 7.2 g/dL (11.5-14.8); LYMPHOCYTES # (AUTO) 0.5 /CMM (0.8-4.8); LYMPHOCYTES % (AUTO) 1.3 % (20.0-44.0); MEAN CORPUSCULAR HGB CONC 30 g/dl (31.0-36.0); MEAN CORPUSCULAR VOLUME 110 fL (82-100); MONOCYTES # (AUTO) 0.2 /CMM (0.1-1.30); MONOCYTES % (AUTO) 0.7 % (2.0-12.0); NEUTROPHILS # (AUTO) 34.6 /CMM (1.8-8.9); NEUTROPHILS % (AUTO) 97.6 % (43.0-81.0); PLATELET COUNT (AUTO) 210 /CMM (150-450); RED BLOOD CELL COUNT(AUTO) 2.19 MIL/uL (4.0-5.2)
[2020-05-15 04:50] LABS: WHITE BLOOD COUNT (AUTO) 35.5 K/uL (4.3-11.0)
[2020-05-15 05:01] LABS: CALCIUM, SERUM 10.2 mg/dL (8.5-10.1); CARBON DIOXIDE 25 mmol/L (21-32); CHLORIDE 97 mmol/L (98-107); CREATININE 2.4 mg/dL (0.6-1.3); GLUCOSE 122 mg/dL (74-106); PHOSPHORUS 3.6 mg/dL (2.5-4.9); POTASSIUM 3.5 mmol/L (3.5-5.1); SODIUM SERUM 133 mmol/L (136-145)
[2020-05-15 05:07] LABS: UREA NITROGEN, BLOOD 84 mg/dL (7-18)
[2020-05-15] MEDS: IV NS 0.9% 250 ML IV PRN (05:27)
[2020-05-15 05:38] LABS: BAND % (MANUAL) 11 % (0.0-5.0); NEUTROPHILS % (MANUAL) 89 (42-76)
[2020-05-15 06:02] LABS: EOSINOPHILS % (MANUAL) 0 % (0-4); LYMPHOCYTES % (MANUAL) 0 % (16-48); MONOCYTES % (MANUAL) 0 % (0-11.0)
--- NOTE | 2020-05-15 06:15 | NUR ---
RN notes Received patient on levo drip at 0.03, No adverse effect noted. IV hydration of 10mls/hr tolerating well. Resting comfortably in bed . Eyes were open with no eye tracking noted, In no apparent respiratory distress, breathing even and unlabored. Vent setting well tolerated. Suctioned large amount of thick yellowish secretion. Oral care done. Vital signs wnl. Noted at 0700 patient's O2sat was going down to 70's, suctioned large amount of secretion. Evaluation and treatment done by RT. Santana NPO. No significant change of condition. Kept clean and dry. Will endorse to next shift for continuity of care.
[2020-05-15] MEDS ORDERED: TPN BAG #27 IV PRN ×4 (08:00)
[2020-05-15] MEDS: LACTULOSE 10 G/15 ML UDC (PYXIS) GT SCH ×2 (08:00→16:07)
[2020-05-15] MEDS: CITALOPRAM HYDROBROMIDE 10 MG TABLET GT SCH (08:00)
[2020-05-15] MEDS ORDERED: TPN BAG #26 IV PRN ×2 (08:00)
[2020-05-15] MEDS: GLYCOPYRROLATE 1 MG TABLET GT SCH ×3 (08:01→16:07)
[2020-05-15] MEDS: CALCIUM POLYCARBOPHIL 625 MG TABLET GT SCH ×2 (08:01→16:07)
[2020-05-15] MEDS: ERYTHROMYCIN ETHYLSUCCINATE 200 MG/5 ML SUSPENSION GT SCH ×3 (08:01→16:07)
[2020-05-15] MEDS: ASCORBIC ACID 500 MG TABLET GT SCH (08:02)
[2020-05-15] MEDS: MULTIVITAMINS,THERAGRAN 1 UDTAB TABLET GT SCH (08:02)
[2020-05-15] MEDS: HYDROCORTISONE SOD SUCCINATE 100 MG/2 ML VIAL IV SCH ×3 (08:15→17:13)
[2020-05-15] MEDS: PANTOPRAZOLE 40 MG VIAL IV SCH (08:15)
[2020-05-15] MEDS: HYDROGEL DRESSING 90 GM TUBE TP SCH (08:16)
[2020-05-15] MEDS: THERAHONEY GEL 1.5 OZ TUBE TP SCH (08:17)
[2020-05-15] MEDS: NOREPINEPHRINE 8 MG in IV NS 0.9% 242 ML IV PRN (08:22)
[2020-05-15] MEDS ORDERED: ACETAMINOPHEN 650 MG/SUPP.RECT RC PRN (08:30)
[2020-05-15] MEDS ORDERED: CASPOFUNGIN 50 MG in IV NS 0.9% 250 ML IV SCH (10:00)
--- NOTE | 2020-05-15 11:05 | NUR ---
KB Felix will get consent from pt. to perform CT ABDOMEN PELVIS W/IV Contrast. Call Radiology at ext. [phone] when ready.
[2020-05-15] MEDS: MICAFUNGIN SODIUM 100 MG in IV NS 0.9% 100 ML IV SCH (12:41)
[2020-05-15] MEDS: FAT EMULSION 20% 500 ML in PREMIX 1 EA IV SCH (15:03)
[2020-05-15] MEDS ORDERED: DIATR MEGLU/DIATRIZOATE SODIUM 30 ML BOTTLE (GASTROGRAPHIN) PO ONE (15:30)
[2020-05-15] MEDS ORDERED: DIATR MEGLU/DIATRIZOATE SODIUM 30 ML BOTTLE (GASTROGRAPHIN) ONE (15:36)
--- NOTE | 2020-05-15 20:00 | NUR ---
TRAIN OPERATIONS MANAGER. RECEIVED THE PT REST ON THE BED. AWAKE. LETHARGIC, DOES NOT FOLLOW COMMANDS. TRACH TO VENT CONNECTED. SHILEY #6,AC 12, TV 550,FIO2 40% peep 5. sat 98%. no acute distress noted COMPOSER TEACHING ARTIST SHOWING NSR. IV RT UPPER ARM PICC LINE. TPN 75ML/H, LIPID 21ML/H, LEVOPHED 0,02MCG/KG/MIN. HOB ELEVATED. GT INTACT. NGT CLAMPED. PT IS NPO,
[2020-05-15] MEDS ORDERED: IV NS 0.9% 250 ML IV ONE (20:06)
[2020-05-15] MEDS ORDERED: CT SWABBABLE VALVE TRANS SET 1 EA INFUS.SET MC ONE (20:06)
[2020-05-15] MEDS ORDERED: IOHEXOL-300 100 ML VIAL IV ONE (20:06)
--- NOTE | 2020-05-15 20:10 | NUR ---
apiculturist. send the pt to ct abdomen with acls protocol. , waiting for the result.
[2020-05-15] MEDS: COLISTIMETHATE SODIUM 75 MG in IV NS 0.9% 50 ML IV SCH (21:06)
[2020-05-16] VITALS (43 sets, daily range): BP systolic 86–143; BP diastolic 33–108
[2020-05-16] MEDS: METOCLOPRAMIDE HCL 10 MG/2 ML VIAL IV SCH ×4 (00:38→17:05)
[2020-05-16] MEDS: BLOOD SUGAR DIAGNOSTIC 1 EACH STRIP IN SCH ×4 (00:43→17:26)
[2020-05-16] MEDS: INSULIN REGULAR, HUMAN 100 UNIT/ML 3 ML VIAL SQ PRN ×3 (01:01→12:38)
[2020-05-16] MEDS: IPRATROPIUM NEB FS 0.5 MG/2.5 ML AMPUL.NEB NEB SCH ×4 (02:08→19:47)
--- NOTE | 2020-05-16 04:34 | NUR ---
sericulturist. ct scan hanna called for ct abdomen result, recommended ngt advanced
--- NOTE | 2020-05-16 04:37 | NUR ---
AWS SOFTWARE DEVELOPMENT ENGINEER. AM CARE, ORAL CARE, BED BATH GIVEN. LINEN CHANGED. REMAINING SAME VENT SETTING TOLERATED WELL. AST 98%. NO ACUTE DISTRESS NOTED. BEEF BONER SHOWING NSR. IV RT UPPER ARM PICC LINE TPN 75 ML/H, LIPID 21ML/H,GT CLAMPED. NGT INTACT. AFEBRILE. PT IS NPO. HOB ELEVATED. TURN AND REPOSITION Q2H. WILL CONTINUE TO MONITOR VITALS.
[2020-05-16 05:01] LABS: CARBON DIOXIDE 23 mmol/L (21-32); CHLORIDE 95 mmol/L (98-107); CREATININE 2.5 mg/dL (0.6-1.3); GLUCOSE 161 mg/dL (74-106); PHOSPHORUS 3.9 mg/dL (2.5-4.9); POTASSIUM 3.6 mmol/L (3.5-5.1); SODIUM SERUM 129 mmol/L (136-145)
[2020-05-16 05:03] LABS: UREA NITROGEN, BLOOD 99 mg/dL (7-18)
[2020-05-16] MEDS: METRONIDAZOLE 500MG/ NS 100ML 500 MG in PREMIX 1 EA IV SCH ×3 (05:34→21:13)
--- NOTE | 2020-05-16 05:58 | NUR ---
RT NOTE: RECEIVED PT ON NOTED ORDERED VENT SETTINGS. NO RESPIRATORY DISTRESS NOTED. TRACH WELL POSITIONED AND SECURED. SXD AND LAVAGE NEEDED. EMERGENCY EQUIPMENT @ BEDSIDE. ALARMS CHECKED ON AND AUDIBLE. VENT PLUGGED INTO RED OUTLET.
--- NOTE | 2020-05-16 07:15 | NUR ---
RN INITIAL NOTES RECEIVED PT AWAKE. TRACH IN PLACE, TOLERATING VENT. NO RESPIRATORY DISTRESS NOTED. NO SOB NOTED. DENIES ANY PAIN. NGT IN PLACE. CHRISTINA PICC AND RIJ HD CATH IN PLACE. TPN AND LIPIDS INFUSING. NO ASE NOTED. J-TUBE CLAMPED. BLE ELEVATED. PT COMFORTABLE. WILL MONITOR
[2020-05-16] MEDS: LEVOTHYROXINE INJ 100 MCG VIAL IV SCH (07:30)
[2020-05-16] MEDS: LACTULOSE 10 G/15 ML UDC (PYXIS) GT SCH ×2 (08:21→16:08)
[2020-05-16] MEDS: CITALOPRAM HYDROBROMIDE 10 MG TABLET GT SCH (08:21)
[2020-05-16] MEDS: ERYTHROMYCIN ETHYLSUCCINATE 200 MG/5 ML SUSPENSION GT SCH ×3 (08:22→16:08)
[2020-05-16] MEDS: ASCORBIC ACID 500 MG TABLET GT SCH (08:23)
[2020-05-16] MEDS: MULTIVITAMINS,THERAGRAN 1 UDTAB TABLET GT SCH (08:23)
[2020-05-16] MEDS: CALCIUM POLYCARBOPHIL 625 MG TABLET GT SCH ×2 (08:23→16:08)
[2020-05-16] MEDS: GLYCOPYRROLATE 1 MG TABLET GT SCH ×3 (08:23→16:08)
[2020-05-16] MEDS: HYDROGEL DRESSING 90 GM TUBE TP SCH (09:01)
[2020-05-16] MEDS: MUPIROCIN OINT 2% 22 GM TUBE SCH ×2 (09:01→21:15)
[2020-05-16] MEDS: THERAHONEY GEL 1.5 OZ TUBE TP SCH (09:02)
[2020-05-16] MEDS: CLOTRIMAZOLE 1% 15 GM TUBE TP SCH ×2 (09:02→21:14)
[2020-05-16] MEDS: HYDROCORTISONE SOD SUCCINATE 100 MG/2 ML VIAL IV SCH ×3 (09:07→17:05)
[2020-05-16] MEDS: PANTOPRAZOLE 40 MG VIAL IV SCH (09:07)
--- NOTE | 2020-05-16 12:22 | NUR ---
SPOKE WITH RADIOLOGIST DR. HENRIQUEZ TO BE SCHEDULED TOMORROW MORNING A RESULT OF HIGHER INR. SPOKE WITH KB HUANG TO NOTIFY ORDERING PHYSICIAN DR. BRONSON TO ADDRESS INR PER DR. HENRIQUEZ PRIOR TO EXAM.
[2020-05-16] MEDS ORDERED: TPN BAG #28 IV PRN ×2 (13:00)
[2020-05-16] MEDS ORDERED: IV NS 0.9% 500 ML IV ONE (13:30)
[2020-05-16] MEDS: ALBUMIN 25% 25 GM in PREMIX 1 EA IV PRN (14:16)
[2020-05-16] MEDS: MICAFUNGIN SODIUM 100 MG in IV NS 0.9% 100 ML IV SCH (14:40)
[2020-05-16] MEDS: AMIKACIN 450 MG in IV D5W 100 ML IV PRN (17:05)
[2020-05-16] MEDS: VANCOMYCIN 500 MG in IV D5W 100 ML IV PRN (17:38)
[2020-05-16] MEDS ORDERED: NOREPINEPHRINE 8 MG in IV D5W 250 ML IV PRN (18:30)
--- NOTE | 2020-05-16 18:45 | NUR ---
RN CLOSING NOTES NO SIGNIFICANT CHANGE NOTED. NO RESPIRATORY DISTRESS NOTED. NO SOB NOTED. KEPT HOB ELEVATED. TX PROVIDED ORDERED. KEPT COMFORTABLE. BLE ELEVATED. WILL ENDORSE FOR CONTINUITY OF CARE
[2020-05-16] MEDS: COLISTIMETHATE SODIUM 75 MG in IV NS 0.9% 50 ML IV SCH (21:12)
[2020-05-16 21:20] LABS: BASOPHILS # (AUTO) 0.1 /CMM (0.0-0.2); BASOPHILS % (AUTO) 0.5 % (0.0-2.0); EOSINOPHILS % (AUTO) 0.4 % (0.0-6.0); HEMATOCRIT 25 % (33-45); HEMOGLOBIN 7.8 g/dL (11.5-14.8); LYMPHOCYTES # (AUTO) 0.3 /CMM (0.8-4.8); LYMPHOCYTES % (AUTO) 1.4 % (20.0-44.0); MEAN CORPUSCULAR HGB CONC 31 g/dl (31.0-36.0); MEAN CORPUSCULAR VOLUME 106 fL (82-100); MONOCYTES % (AUTO) 0.2 % (2.0-12.0); NEUTROPHILS # (AUTO) 17.4 /CMM (1.8-8.9); NEUTROPHILS % (AUTO) 97.5 % (43.0-81.0); PLATELET COUNT (AUTO) 185 /CMM (150-450); RED BLOOD CELL COUNT(AUTO) 2.35 MIL/uL (4.0-5.2); WHITE BLOOD COUNT (AUTO) 17.8 K/uL (4.3-11.0)
[2020-05-16 21:57] LABS: BAND % (MANUAL) 7 % (0.0-5.0); EOSINOPHILS % (MANUAL) 1 % (0-4); LYMPHOCYTES % (MANUAL) 4 % (16-48); NEUTROPHILS % (MANUAL) 87 (42-76); REACTIVE LYMPHOCYTES 1 % (0-0)
[2020-05-17] VITALS (63 sets, daily range): BP systolic 103–142; BP diastolic 51–82
[2020-05-17] MEDS: METOCLOPRAMIDE HCL 10 MG/2 ML VIAL IV SCH ×5 (01:10→23:34)
[2020-05-17] MEDS: BLOOD SUGAR DIAGNOSTIC 1 EACH STRIP IN SCH ×5 (01:10→23:32)
[2020-05-17] MEDS: IPRATROPIUM NEB FS 0.5 MG/2.5 ML AMPUL.NEB NEB SCH ×4 (01:28→19:49)
[2020-05-17 04:25] LABS: BASOPHILS # (AUTO) 0.1 /CMM (0.0-0.2); BASOPHILS % (AUTO) 0.3 % (0.0-2.0); EOSINOPHILS % (AUTO) 0.2 % (0.0-6.0); HEMATOCRIT 25 % (33-45); HEMOGLOBIN 7.8 g/dL (11.5-14.8); LYMPHOCYTES # (AUTO) 0.3 /CMM (0.8-4.8); LYMPHOCYTES % (AUTO) 1.7 % (20.0-44.0); MEAN CORPUSCULAR HGB CONC 32 g/dl (31.0-36.0); MEAN CORPUSCULAR VOLUME 105 fL (82-100); MONOCYTES # (AUTO) 0.3 /CMM (0.1-1.30); MONOCYTES % (AUTO) 1.6 % (2.0-12.0); NEUTROPHILS # (AUTO) 16.9 /CMM (1.8-8.9); NEUTROPHILS % (AUTO) 96.2 % (43.0-81.0); PLATELET COUNT (AUTO) 174 /CMM (150-450); RED BLOOD CELL COUNT(AUTO) 2.33 MIL/uL (4.0-5.2); WHITE BLOOD COUNT (AUTO) 17.6 K/uL (4.3-11.0)
[2020-05-17 04:34] LABS: CARBON DIOXIDE 25 mmol/L (21-32); CHLORIDE 99 mmol/L (98-107); CREATININE 2.1 mg/dL (0.6-1.3); GLUCOSE 128 mg/dL (74-106); MAGNESIUM 1.7 mg/dL (1.8-2.4); POTASSIUM 3.5 mmol/L (3.5-5.1); SODIUM SERUM 134 mmol/L (136-145); UREA NITROGEN, BLOOD 75 mg/dL (7-18)
[2020-05-17] MEDS: METRONIDAZOLE 500MG/ NS 100ML 500 MG in PREMIX 1 EA IV SCH ×3 (05:25→21:07)
--- NOTE | 2020-05-17 07:15 | NUR ---
Patient remains in no acute distress in bed. patient did not have any significant change in condition during shift. all needs met, all orders carried out. will endorse care to am RN for continuity of care.
--- NOTE | 2020-05-17 07:45 | NUR ---
ICU/RN: INITIAL NOTES,AM RECEIVED REPORT FROM NIGHT NURSE. PT ALERT, OPEN EYES, FOLLOWS SIMPLE COMMANDS. TRACH TO VENT WITH SETTINGS ORDERED BY MD, NO ACUTE DISTRESS NOTED. SINUS ONT TELE. PT SCHEDULED FOR IR CT GUIDED DRAINAGE THIS AM. TPN INFUSING VIA RIGHT UPPER ARM PICC LINE, PATENT AND INTACT, NO S/S OF INFECTION NOTED. PT ANURIC, GTUBE IN PLACE, CLAMPED, NG TUBE TO LIS (NO OUTPUT NOTED). CONSENTS FOR PROCEDURE IN CHART. ALL NEEDS WILL BE ATTENDED TO, SAFETY MEASURES TAKEN, BED IN LOW POSITION, SIDE RAILS UP, CALL LIGHT WITHIN REACH. WILL CONTINUE TO MONITOR AND CARE.
[2020-05-17] MEDS: HYDROCORTISONE SOD SUCCINATE 100 MG/2 ML VIAL IV SCH ×3 (08:23→17:19)
[2020-05-17] MEDS: LEVOTHYROXINE INJ 100 MCG VIAL IV SCH (08:23)
[2020-05-17] MEDS: MUPIROCIN OINT 2% 22 GM TUBE SCH ×2 (08:25→21:07)
[2020-05-17] MEDS: PANTOPRAZOLE 40 MG VIAL IV SCH (08:25)
[2020-05-17] MEDS: CLOTRIMAZOLE 1% 15 GM TUBE TP SCH ×2 (08:25→21:07)
[2020-05-17] MEDS: ASCORBIC ACID 500 MG TABLET GT SCH (08:26)
[2020-05-17] MEDS: THERAHONEY GEL 1.5 OZ TUBE TP SCH (08:26)
[2020-05-17] MEDS: HYDROGEL DRESSING 90 GM TUBE TP SCH (08:26)
[2020-05-17] MEDS: GLYCOPYRROLATE 1 MG TABLET GT SCH ×3 (08:27→16:03)
[2020-05-17] MEDS: CITALOPRAM HYDROBROMIDE 10 MG TABLET GT SCH (08:27)
[2020-05-17] MEDS: MULTIVITAMINS,THERAGRAN 1 UDTAB TABLET GT SCH (08:27)
[2020-05-17] MEDS: LACTULOSE 10 G/15 ML UDC (PYXIS) GT SCH ×2 (08:27→16:03)
[2020-05-17] MEDS: CALCIUM POLYCARBOPHIL 625 MG TABLET GT SCH ×2 (08:27→16:03)
[2020-05-17] MEDS: ERYTHROMYCIN ETHYLSUCCINATE 200 MG/5 ML SUSPENSION GT SCH ×3 (08:27→16:03)
[2020-05-17] MEDS ORDERED: NALOXONE PREFILLED SYRINGE 2 MG/2 ML SYRINGE IV ONE (10:30)
[2020-05-17] MEDS ORDERED: MIDAZOLAM HCL 5MG/ML VIAL 25 MG/5 ML VIAL IV ONE (10:30)
[2020-05-17] MEDS ORDERED: FENTANYL PF 250MCG/5ML AMPUL IV ONE (10:30)
--- NOTE | 2020-05-17 10:30 | NUR ---
ICU/RN: RADIOLOGY AT BEDSIDE TO TRANSPORT PT TO CT FOR CT GUIDED DRAIN PLACEMENT. WILL TRANSFER PT WITH ACLS GUIDELINES. VSS, CONSENTS IN CHART.
[2020-05-17] MEDS ORDERED: TPN BAG #29 IV PRN ×4 (11:30)
[2020-05-17] MEDS ORDERED: TPN BAG #30 IV PRN ×2 (11:30)
[2020-05-17] MEDS ORDERED: LIDOCAINE 1% INJ 50 ML MDV IJ ONE (12:13)
[2020-05-17] MEDS ORDERED: LIDOCAINE HCL/PF 1% 30 ML SDV ONE (12:14)
--- NOTE | 2020-05-17 13:45 | NUR ---
ICU/RN: PT BACK FROM CT. 3 ACCORDION DRAINS PLACED. ONE RIGHT LATERAL ABDOMEN, LEFT LATERAL ABDOMEN AND LEFT MEDIAL ABDOMEN (TOTAL OF 3 DRAINS PLACED). DRAINAGE NOTED, PURULENT. PLACED BACK ON MONITOR, VSS, NO DISTRESS NOTED. WILL CONTINUE TO MONITOR AND ASSESS.
[2020-05-17] MEDS: MICAFUNGIN SODIUM 100 MG in IV NS 0.9% 100 ML IV SCH (14:16)
[2020-05-17] MEDS: FAT EMULSION 20% 500 ML in PREMIX 1 EA IV SCH (14:26)
[2020-05-17] MEDS: Magnesium 1GM/D5W 100ML PREMIX 100 ML IV SCH ×2 (14:34→16:03)
--- NOTE | 2020-05-17 18:00 | NUR ---
DRAIN OUTPUT: RIGHT LATERAL 75CC LEFT LATERAL 140CC LEFT MEDIAL 10CC
--- NOTE | 2020-05-17 18:28 | NUR ---
ICU/RN: BS 135, INSULIN HELD PER MD
--- NOTE | 2020-05-17 19:40 | NUR ---
WEB COMMUNICATIONS SPECIALIST OPENING NOTES, RECEIVED PATIENT ALERT, OPEN EYES, FOLLOWS SIMPLE COMMANDS. TRACH TO VENT WITH SETTINGS ORDERED TOLERATING WELL, NO SOB OR ACUTE DISTRESS NOTED. SR ON TELE MONITOR. TPN INFUSING VIA RIGHT UPPER ARM PICC LINE, PATENT AND INTACT, NO S/S OF INFILTRATION NOTED. PATIENT IS ANURIC, G-TUBE IN PLACE, CLAMPED, NG TUBE IN PLACE CLAMPED. 3 ACCORDION DRAINS NOTED, ONE RIGHT LATERAL ABD, ONE LEFT LATERAL ABD, AND ONE LEFT MEDIAL ABD, DRAINAGE NOTED IN ALL DRAINS, SAFETY MEASURES TAKEN, BED IN LOW/LOCKED POSITION, SIDE RAILS UP, WILL CONTINUE TO MONITOR THE PATIENT CLOSELY.
[2020-05-17] MEDS: COLISTIMETHATE SODIUM 75 MG in IV NS 0.9% 50 ML IV SCH (20:20)
--- NOTE | 2020-05-17 22:58 | NUR ---
TUBE FEEDING WAS ORDERED BY ERROR, ORDER CANCELED. PATIENT IS STRICT NPO PER MD ORDER.
--- NOTE | 2020-05-17 23:38 | NUR ---
ICU/RN: BS 130, INSULIN HELD PER MD, PATIENT STRICT NPO
[2020-05-18] VITALS (84 sets, daily range): BP systolic 83–142; BP diastolic 38–82
[2020-05-18] MEDS: IPRATROPIUM NEB FS 0.5 MG/2.5 ML AMPUL.NEB NEB SCH ×4 (01:08→19:52)
[2020-05-18] MEDS: METRONIDAZOLE 500MG/ NS 100ML 500 MG in PREMIX 1 EA IV SCH ×3 (05:11→21:25)
[2020-05-18] MEDS: METOCLOPRAMIDE HCL 10 MG/2 ML VIAL IV SCH ×4 (06:08→23:26)
[2020-05-18] MEDS: BLOOD SUGAR DIAGNOSTIC 1 EACH STRIP IN SCH ×3 (06:08→17:57)
[2020-05-18 06:46] LABS: BASOPHILS # (AUTO) 0.1 /CMM (0.0-0.2); BASOPHILS % (AUTO) 0.5 % (0.0-2.0); EOSINOPHILS % (AUTO) 0.1 % (0.0-6.0); HEMATOCRIT 25 % (33-45); HEMOGLOBIN 8.7 g/dL (11.5-14.8); LYMPHOCYTES # (AUTO) 0.4 /CMM (0.8-4.8); LYMPHOCYTES % (AUTO) 1.9 % (20.0-44.0); MEAN CORPUSCULAR HGB CONC 35 g/dl (31.0-36.0); MEAN CORPUSCULAR VOLUME 107 fL (82-100); MONOCYTES # (AUTO) 0.4 /CMM (0.1-1.30); MONOCYTES % (AUTO) 1.6 % (2.0-12.0); NEUTROPHILS # (AUTO) 21.1 /CMM (1.8-8.9); NEUTROPHILS % (AUTO) 95.9 % (43.0-81.0); PLATELET COUNT (AUTO) 185 /CMM (150-450); RED BLOOD CELL COUNT(AUTO) 2.36 MIL/uL (4.0-5.2)
[2020-05-18 06:47] LABS: CALCIUM, SERUM 9.8 mg/dL (8.5-10.1); CARBON DIOXIDE 24 mmol/L (21-32); CHLORIDE 96 mmol/L (98-107); CREATININE 2.3 mg/dL (0.6-1.3); GLUCOSE 174 mg/dL (74-106); PHOSPHORUS 3.5 mg/dL (2.5-4.9); POTASSIUM 3.5 mmol/L (3.5-5.1); SODIUM SERUM 129 mmol/L (136-145)
--- NOTE | 2020-05-18 07:17 | NUR ---
DEBONING TEAM LEADER CLOSING NOTES, PATIENT IN BED AWAKW. ALERT/ORIENTED X2, OPEN EYES, FOLLOWS SIMPLE COMMANDS. TRACH TO VENT WITH SETTINGS ORDERED TOLERATING WELL, NO SOB OR ACUTE DISTRESS NOTED. SR ON TELE MONITOR. TPN INFUSING VIA RIGHT UPPER ARM PICC LINE, PATENT AND INTACT, NO S/S OF INFILTRATION NOTED. PATIENT IS ANURIC, G-TUBE IN PLACE, CLAMPED, NG TUBE IN PLACE CLAMPED. 3 ACCORDION DRAINS NOTED, ONE RIGHT LATERAL ABD, ONE LEFT LATERAL ABD, AND ONE LEFT MEDIAL ABD, DRAINAGE WELL IN ALL DRAINS, SAFETY MEASURES TAKEN, BED IN LOW/LOCKED POSITION, SIDE RAILS UP X3, ENDORSE THE PATIENT TO AM RN FOR EVELYN.
[2020-05-18 07:20] LABS: UREA NITROGEN, BLOOD 87 mg/dL (7-18)
--- NOTE | 2020-05-18 07:30 | NUR ---
RN NOTES RECEIVED PATIENT FOR CONTINUITY OF CARE, AWAKE, WITH SPONTANEOUS EYE OPENING BUT IS UNABLE TO TRACK, UNABLE TO FOLLOW COMMAND. TRACH TO VENT. NO INDICATION OF SHORTNESS OF BREATHING NOTED. TOLERATING VENT SETTINGS WELL WITH SATURATION AT 100%. SECRETION NOTED THICK AND YELLOW IN COLOR. NGT IN PLACE. WITH ONGOING TPN #29 AT 75CC/HR AND LIPIDS AT 21ML/HR OVER THE CHRISTINA PICC LINE. R ARM WITH WEEPING EDEMA. ABDOMINAL WOUND DRESSING IN PLACE, CLEAN AND DRY. HOB ELEVATED. CALL LIGHT WITHIN REACH. SAFETY MEASURES IN PLACE. SRX2 UP. BED IN LOW AND LOCKED POSITION. WILL CONTINUE TO MONITOR ACCORDING
[2020-05-18] MEDS: LEVOTHYROXINE INJ 100 MCG VIAL IV SCH ×2 (08:02→08:44)
[2020-05-18] MEDS: PANTOPRAZOLE 40 MG VIAL IV SCH (08:44)
[2020-05-18] MEDS: MULTIVITAMINS,THERAGRAN 1 UDTAB TABLET GT SCH (08:44)
[2020-05-18] MEDS: HYDROCORTISONE SOD SUCCINATE 100 MG/2 ML VIAL IV SCH ×3 (08:44→17:57)
[2020-05-18] MEDS: ASCORBIC ACID 500 MG TABLET GT SCH (08:44)
[2020-05-18] MEDS: LACTULOSE 10 G/15 ML UDC (PYXIS) GT SCH ×2 (08:45→16:54)
[2020-05-18] MEDS: CITALOPRAM HYDROBROMIDE 10 MG TABLET GT SCH (08:45)
[2020-05-18] MEDS: CALCIUM POLYCARBOPHIL 625 MG TABLET GT SCH ×2 (08:45→16:54)
[2020-05-18] MEDS: ERYTHROMYCIN ETHYLSUCCINATE 200 MG/5 ML SUSPENSION GT SCH ×3 (08:45→16:54)
[2020-05-18] MEDS: GLYCOPYRROLATE 1 MG TABLET GT SCH ×3 (08:45→16:54)
[2020-05-18] MEDS: MUPIROCIN OINT 2% 22 GM TUBE SCH ×2 (08:46→21:16)
[2020-05-18] MEDS: HYDROGEL DRESSING 90 GM TUBE TP SCH (08:46)
[2020-05-18] MEDS: CLOTRIMAZOLE 1% 15 GM TUBE TP SCH ×2 (08:46→21:16)
[2020-05-18] MEDS: THERAHONEY GEL 1.5 OZ TUBE TP SCH (08:47)
[2020-05-18] MEDS ORDERED: NEPRO 1,000 ML BOTTLE NG PRN (09:00)
[2020-05-18] MEDS: ALBUMIN 25% 25 GM in PREMIX 1 EA IV PRN (11:29)
[2020-05-18] MEDS: MICAFUNGIN SODIUM 100 MG in IV NS 0.9% 100 ML IV SCH (11:58)
[2020-05-18] MEDS ORDERED: TPN BAG #31 IV PRN ×2 (12:00)
[2020-05-18] MEDS: MORPHINE SULFATE INJ 2 MG/ML DISP.SYRIN IM PRN (13:54)
--- NOTE | 2020-05-18 18:00 | NUR ---
rn notes drainiage right side drain 50 cc , left medial 30cc purulent and left lateral 20cc seropurulent.
--- NOTE | 2020-05-18 18:00 | NUR ---
RN NOTES OBTAINED CONSENT FOR CONSENT FROM MARIO NUNES (SON). CONSENT VERIFIED WITH DENIA, RN
--- NOTE | 2020-05-18 19:30 | NUR ---
rn notes endorsed patient fo0r continuity of care. no acute changes within the shift. patient not on cardio-respiratory distress. patient calmly sleeping in bed at this time. all nursing needs attended and med. safety measures in place at all times. call light within reach.
[2020-05-18] MEDS: VANCOMYCIN 500 MG in IV D5W 100 ML IV PRN (19:37)
--- NOTE | 2020-05-18 19:45 | NUR ---
ICU/LINOLEUM FLOOR LAYER REPORT RECEIVED FROM THE TO DAY NURSE. SEE FLOWSHEET FOR ASSESSMENT, SKIN ISSUES ARE ADDRESSED ON FLOWSHEET ALONG WITH INTERVENTION TO EACH. PT ALERT TO SELF, APPEARS LETHARGIC. PT HAS TRACH WITH SATURATION AT 96-97'S%. WILL MONITOR THIS PT AND HER SATURATION. PT WAS TURNED AND REPOSITIONED FOR COMFORT AND CARE. NO ACUTE DISTRESS SEEN AT THIS TIME, WILL CONTINUE TO MONITOR THIS PT.
[2020-05-18] MEDS: COLISTIMETHATE SODIUM 75 MG in IV NS 0.9% 50 ML IV SCH (20:56)
--- NOTE | 2020-05-18 21:30 | NUR ---
ICU/SPRUE KNOCKER CALLED MARIOBOLIVAR'S SON AT [phone] FOR CONSENT FOR ANESTHESIA. PT'S SON WAS ABLE TO GIVEN CONSENT FOR PROCEDURE TOMORROW. Addendum: 05/19/20 at 0546 by RUT JIMENEZN WASN'T AVAILABLE FOR CONSENT
--- NOTE | 2020-05-18 22:10 | NUR ---
ICU/HISTORY TUTOR PT WAS PROVIDED ORAL CARE AT THIS TIME. PT TOLERATED THIS WELL, REMAINS ON CURRENT VENT WITH SATURATION AT 98%. PT WAS TURNED AND REPOSITIONED FOR COMFORT AND CARE. WILL CONTINUE TO MONITOR THIS PT
[2020-05-19] VITALS (52 sets, daily range): BP systolic 74–150; BP diastolic 38–80
[2020-05-19] MEDS: BLOOD SUGAR DIAGNOSTIC 1 EACH STRIP IN SCH ×4 (00:04→17:48)
--- NOTE | 2020-05-19 00:23 | NUR ---
RT NOTE Pt rec'd trached on [facility] vent on AC mode settings as charted. trach is patent and secured. No resp distress or sob noted. Sx'd for thick mod amt of pale yellow secretions. Alarms are set and audible. Ambu bag bedside. Vent plugged into red outlet. Will continue to monitor closely. Addendum: 05/19/20 at 0024 by YANELI NUÑEZ RT Amended: Links added.
--- NOTE | 2020-05-19 00:30 | NUR ---
ICU/LOOP MACHINE OPERATOR MIDNIGHT BLOOD SUGAR IS 107, THERE IS NO COVERAGE FOR THIS. HOWEVER WILL CONTINUE TO CHECK BLOOD SUGAR ORDERED BY .
[2020-05-19] MEDS: IPRATROPIUM NEB FS 0.5 MG/2.5 ML AMPUL.NEB NEB SCH ×4 (01:38→19:46)
--- NOTE | 2020-05-19 02:00 | NUR ---
ICU/UNCLAIMED PROPERTY OFFICER PT WAS PROVIDED ORAL CARE AT THIS TIME, ALONG WITH AM CARE. PT TOLERATED THIS WELL, REMAINS ON CURRENT VENT WITH SATURATION AT 98%. PT WAS TURNED AND REPOSITIONED FOR COMFORT AND CARE. WILL CONTINUE TO MONITOR THIS PT. ALSO AT THIS TIME DRESSING CHANGE WAS DONE. LARGE ABDOMINAL WOUND S/P G/TUBE REMOVAL DUE TO LEAKING INTO ABDOMINAL CAVITY. WOUND IS LARGE, LEAKING GREEN PUSS, WITH FOUL SMELL FROM THE TOP OF WOUND. ALSO THERE IS WHITE, CLOUDY DRAINAGE FROM THE SIDE OF WOUND UNDER REDDISH LOOKING MUSCLE. PT HAS 3 J/P DRESSINGS FROM ABDOMINAL AREA WHICH ARE DRAINING. THE DRESSING CHANGE WAS DONE PER MD'S ORDER.
[2020-05-19 04:07] LABS: BASOPHILS % (AUTO) 0.1 % (0.0-2.0); HEMATOCRIT 25 % (33-45); HEMOGLOBIN 7.8 g/dL (11.5-14.8); LYMPHOCYTES # (AUTO) 0.3 /CMM (0.8-4.8); LYMPHOCYTES % (AUTO) 1.4 % (20.0-44.0); MEAN CORPUSCULAR HGB CONC 31 g/dl (31.0-36.0); MEAN CORPUSCULAR VOLUME 106 fL (82-100); MONOCYTES # (AUTO) 0.3 /CMM (0.1-1.30); MONOCYTES % (AUTO) 1.5 % (2.0-12.0); NEUTROPHILS # (AUTO) 21.8 /CMM (1.8-8.9); PLATELET COUNT (AUTO) 172 /CMM (150-450); RED BLOOD CELL COUNT(AUTO) 2.35 MIL/uL (4.0-5.2); WHITE BLOOD COUNT (AUTO) 22.5 K/uL (4.3-11.0)
[2020-05-19] MEDS: METRONIDAZOLE 500MG/ NS 100ML 500 MG in PREMIX 1 EA IV SCH ×3 (04:15→21:08)
[2020-05-19 04:23] LABS: CALCIUM, SERUM 10.5 mg/dL (8.5-10.1); CARBON DIOXIDE 26 mmol/L (21-32); CHLORIDE 99 mmol/L (98-107); GLUCOSE 117 mg/dL (74-106); MAGNESIUM 1.8 mg/dL (1.8-2.4); PHOSPHORUS 2.9 mg/dL (2.5-4.9); POTASSIUM 3.4 mmol/L (3.5-5.1); SODIUM SERUM 133 mmol/L (136-145); UREA NITROGEN, BLOOD 73 mg/dL (7-18)
--- NOTE | 2020-05-19 05:45 | NUR ---
ICU/KETTLE FIRER CALLED MARIO, PT'S SON AT [phone] FOR CONSENT FOR ANESTHESIA. PT'S SON WASN'T AVAILABLE TO GIVEN CONSENT FOR PROCEDURE TODAY.
[2020-05-19] MEDS: METOCLOPRAMIDE HCL 10 MG/2 ML VIAL IV SCH ×3 (05:53→17:49)
--- NOTE | 2020-05-19 06:11 | NUR ---
ICU/PHOTOGRAPHIC EQUIPMENT INSPECTOR DRAINS AMOUNT RIGHT-40, LEFT MID-15, LEFT SIDE-15 TOTAL IS 70
--- NOTE | 2020-05-19 07:30 | NUR ---
RN NOTES RECEIVED PATIENT BACK FROM KB BETTENCOURT. PATIENT NOT ON ANY FORM OF DISTRESS. AWAKE BUT IS UNABLE TO TRACK, UNABLE TO FOLLOW COMMAND. TOLERATING CURRENT VENT SETTINGS. AFEBRILE.HOB ELEVATED. SAFETY MEASURES IN PLACE. CALL LIGHT WITHIN REACH. WILL CONTINUE TO MONITOR PATIENT ACCORDINGLY
[2020-05-19] MEDS: CITALOPRAM HYDROBROMIDE 10 MG TABLET GT SCH (07:49)
[2020-05-19] MEDS: LACTULOSE 10 G/15 ML UDC (PYXIS) GT SCH ×2 (07:50→16:57)
[2020-05-19] MEDS: CALCIUM POLYCARBOPHIL 625 MG TABLET GT SCH ×2 (07:50→16:58)
[2020-05-19] MEDS: ASCORBIC ACID 500 MG TABLET GT SCH (07:50)
[2020-05-19] MEDS: GLYCOPYRROLATE 1 MG TABLET GT SCH ×3 (07:50→16:58)
[2020-05-19] MEDS: MULTIVITAMINS,THERAGRAN 1 UDTAB TABLET GT SCH (07:50)
[2020-05-19] MEDS: ERYTHROMYCIN ETHYLSUCCINATE 200 MG/5 ML SUSPENSION GT SCH ×3 (07:50→16:57)
[2020-05-19] MEDS ORDERED: TPN BAG #32 IV PRN ×4 (08:30)
[2020-05-19] MEDS ORDERED: TPN BAG #33 IV PRN ×2 (08:30)
[2020-05-19] MEDS: MUPIROCIN OINT 2% 22 GM TUBE SCH ×2 (09:25→21:10)
[2020-05-19] MEDS: HYDROCORTISONE SOD SUCCINATE 100 MG/2 ML VIAL IV SCH ×3 (09:25→16:58)
[2020-05-19] MEDS: PANTOPRAZOLE 40 MG VIAL IV SCH (09:25)
[2020-05-19] MEDS: HYDROGEL DRESSING 90 GM TUBE TP SCH (09:26)
[2020-05-19] MEDS: CLOTRIMAZOLE 1% 15 GM TUBE TP SCH ×2 (09:26→21:09)
[2020-05-19] MEDS: THERAHONEY GEL 1.5 OZ TUBE TP SCH (09:27)
[2020-05-19] MEDS ORDERED: ANESTHESIA TRAY IN PYXIS 1 EA TRAY MC ONE (09:45)
--- NOTE | 2020-05-19 10:00 | NUR ---
rn notes patient transferred out to or via acls protocol accompanied by or team
[2020-05-19] MEDS ORDERED: KETAMINE HCL (500MG/10ML) 50 MG/ML VIAL ONE (10:28)
[2020-05-19] MEDS: MICAFUNGIN SODIUM 100 MG in IV NS 0.9% 100 ML IV SCH (11:00)
--- NOTE | 2020-05-19 14:30 | NUR ---
RN NOTES RECEIVED PATIENT BACK FROM OR, REPORTS OBTAINED FROM KB PEDRAZA. FLORINA KEEP PATIENT CLOSELY MONITORED
[2020-05-19] MEDS: POTASSIUM CL. PREMIX PERIPHER. 50 ML IV SCH ×2 (15:15→16:57)
[2020-05-19] MEDS: FAT EMULSION 20% 500 ML in PREMIX 1 EA IV SCH (15:15)
[2020-05-19] MEDS: INSULIN REGULAR, HUMAN 100 UNIT/ML 3 ML VIAL SQ PRN (17:49)
--- NOTE | 2020-05-19 19:25 | NUR ---
RN OPENING NOTES: RECEIVED PT A/OX1;APPEARS LETHARGIC OPENS EYES. IN BED RESTING COMFORTABLY. PATIENT IN NO S/SX OF ACUTE DISTRESS AT THIS TIME. NO SOB NOTED. PATIENT ON MECHANICAL VENT; SETTINGS PRESCRIBED; PT TOLERATED WELL. AMBU BAG AT BED SIDE ALARMS. SET PER PROTOCOL AND AUDIBLE. VENT PLUGGED IN TO RED OUTLET. NO DISTRESS NOTED. PATIENT ON TELE MONITORING READING SINUS RHYTHM HR IS @70s. NOTED IV SITE ON R UA AMD R IJ HD CATH; PATENT IN INTACT,NO S/S OF INFECTION OR INFILTRATION. PATIENT ON NPO. SAFETY MEASURES HAVE BEEN PROVIDED AND IMPLEMENTED. PATIENT BED ALARM IS ON. HEAD OF BED ELEVATED. BED IS LOCKED, IN LOWEST POSITION AND SIDE RAILS UP. CALL LIGHT WITHIN REACH OF THE PATIENT. APPROPRIATE ISOLATION PRECAUTIONS IN IMPLEMENTED. WILL CONTINUE TO MONITOR AND REASSESS FOR ANY CHANGES.
--- NOTE | 2020-05-19 20:00 | NUR ---
FISHERIES MANAGER RCD PT W/DX SEPSIS; S/P CLOSURE OF GASTRIC PERF AND GTUBE REMOVAL AND ABD WOUND DEBRIDEMENT. PT IS LETHARGIC. NSR ON MONITOR. ON LEVOPHED AT 0.02 MCG/KG/MIN TO MAINTAIN SBP >90. SHILEY 6 W/VENT SETTINGS AC 12 550 50%; RENDERED ORAL CARE. EDEMA AND PITTING NOTED TO BUE W/DRESSINGS IN PLACE. ABD WOUND DRESSING W/SMALL AMOUNT OF DRAINAGE NOTED W/ORDER NOT TO CHANGE DRESSING UNTIL 05/22; GASTROGRAFFIN FOR 05/21; BEGIN TF DEPENDING ONT THOSE RESULTS. PIGTAIL CATHETERS FLUSHED AT THIS TIME PER ORDER.
[2020-05-19] MEDS: COLISTIMETHATE SODIUM 75 MG in IV NS 0.9% 50 ML IV SCH (20:11)
[2020-05-19] MEDS: IV NS 0.9% 250 ML IV PRN (20:12)
--- NOTE | 2020-05-19 23:45 | NUR ---
RN NOTES ENDORSED COMPLETE REPORT TO KB CULLEN FOR EVELYN
[2020-05-20] VITALS (95 sets, daily range): BP systolic 80–134; BP diastolic 42–92
--- NOTE | 2020-05-20 00:30 | NUR ---
FOREIGN AGENT DECREASED LEVOPHED TO 0.02 MCG/KG/MIN CONTINUE TO TITRATE POSSIBLE.
[2020-05-20] MEDS: BLOOD SUGAR DIAGNOSTIC 1 EACH STRIP IN SCH ×5 (00:45→23:19)
[2020-05-20] MEDS: METOCLOPRAMIDE HCL 10 MG/2 ML VIAL IV SCH ×5 (00:46→23:19)
[2020-05-20] MEDS: INSULIN REGULAR, HUMAN 100 UNIT/ML 3 ML VIAL SQ PRN ×2 (00:47→05:54)
[2020-05-20] MEDS: IPRATROPIUM NEB FS 0.5 MG/2.5 ML AMPUL.NEB NEB SCH ×4 (01:59→19:56)
--- NOTE | 2020-05-20 03:29 | NUR ---
RT NOTE Pt rec'd trached on [facility] vent on AC mode settings as charted. trach is patent and secured. No resp distress or sob noted. Sx'd for thick mod amt of pale yellow secretions. Alarms are set and audible. Ambu bag bedside. Vent plugged into red outlet. Will continue to monitor closely. Addendum: 05/20/20 at 0330 by YANELI NUÑEZ RT Amended: Links added.
[2020-05-20] MEDS: METRONIDAZOLE 500MG/ NS 100ML 500 MG in PREMIX 1 EA IV SCH ×3 (04:00→21:45)
[2020-05-20 04:14] LABS: BASOPHILS # (AUTO) 0.1 /CMM (0.0-0.2); BASOPHILS % (AUTO) 0.2 % (0.0-2.0); EOSINOPHILS % (AUTO) 0.8 % (0.0-6.0); HEMATOCRIT 24 % (33-45); HEMOGLOBIN 8.3 g/dL (11.5-14.8); LYMPHOCYTES # (AUTO) 0.7 /CMM (0.8-4.8); LYMPHOCYTES % (AUTO) 2.6 % (20.0-44.0); MEAN CORPUSCULAR HGB CONC 35 g/dl (31.0-36.0); MEAN CORPUSCULAR VOLUME 109 fL (82-100); MONOCYTES # (AUTO) 0.4 /CMM (0.1-1.30); MONOCYTES % (AUTO) 1.6 % (2.0-12.0); NEUTROPHILS # (AUTO) 25.1 /CMM (1.8-8.9); NEUTROPHILS % (AUTO) 94.8 % (43.0-81.0); PLATELET COUNT (AUTO) 191 /CMM (150-450); RED BLOOD CELL COUNT(AUTO) 2.17 MIL/uL (4.0-5.2); WHITE BLOOD COUNT (AUTO) 26.5 K/uL (4.3-11.0)
[2020-05-20 04:48] LABS: CARBON DIOXIDE 22 mmol/L (21-32); CHLORIDE 94 mmol/L (98-107); CREATININE 2.3 mg/dL (0.6-1.3); GLUCOSE 213 mg/dL (74-106); MAGNESIUM 1.9 mg/dL (1.8-2.4); PHOSPHORUS 3.6 mg/dL (2.5-4.9); POTASSIUM 3.5 mmol/L (3.5-5.1); SODIUM SERUM 128 mmol/L (136-145)
[2020-05-20 04:55] LABS: UREA NITROGEN, BLOOD 87 mg/dL (7-18)
--- NOTE | 2020-05-20 05:00 | NUR ---
METALLIC YARN SLITTING MACHINE OPERATOR LEVOPHED INCREASED TO 0.03 MCG/KG /MIN 82/45. CONTINUE TO MONITOR.
--- NOTE | 2020-05-20 06:15 | NUR ---
STONECUTTER HD NURSE AT BEDSIDE; ORDERS PLACED FOR VANCO AND AMIKACIN RANDOM LEVELS.
[2020-05-20] MEDS: ALBUMIN 25% 25 GM in PREMIX 1 EA IV PRN (06:45)
--- NOTE | 2020-05-20 06:55 | NUR ---
HOSPICE AIDE NO OUTPUT FROM PIGTAIL CATHETERS.
[2020-05-20] MEDS: LEVOTHYROXINE INJ 100 MCG VIAL IV SCH (07:34)
--- NOTE | 2020-05-20 07:48 | NUR ---
PORTER SAMPLE CASE: pt.is obtunded, with open eyes, no eyes contact, unable to follow commands, grimacing by touch, rest now, no SOB/no distress reported, SR, on 0.03 mcg/kg/m Levophed, SBP over 100, getting HD now, Albumin given, O2sat. over 95% on 40% FiO2, T96.7/warmed measures +, anuric, all 3 abdomen pigtail catheters are patent, negative pressure for drain+, L.front drain: 30ml sangv, L.back drain: 40 ml serous, R.drain -, abdomen dressing change on 05/22 by report or as needed with discharge, reported: one PRBC unit is ready for stand by for next surgery
[2020-05-20] MEDS: CALCIUM POLYCARBOPHIL 625 MG TABLET GT SCH ×2 (09:00→17:00)
[2020-05-20] MEDS: ERYTHROMYCIN ETHYLSUCCINATE 200 MG/5 ML SUSPENSION GT SCH ×3 (09:00→17:00)
[2020-05-20] MEDS: MULTIVITAMINS,THERAGRAN 1 UDTAB TABLET GT SCH (09:00)
[2020-05-20] MEDS: GLYCOPYRROLATE 1 MG TABLET GT SCH ×3 (09:00→17:00)
[2020-05-20] MEDS: ASCORBIC ACID 500 MG TABLET GT SCH (09:00)
[2020-05-20] MEDS: CITALOPRAM HYDROBROMIDE 10 MG TABLET GT SCH (09:00)
[2020-05-20] MEDS: LACTULOSE 10 G/15 ML UDC (PYXIS) GT SCH ×2 (09:00→17:00)
--- NOTE | 2020-05-20 09:05 | NUR ---
PROCESS VALIDATION ENGINEER: O2sat.86-91%, suctioned pt with lavage: large thick yellowish amount out, O2sat 92-96% after
--- NOTE | 2020-05-20 09:10 | NUR ---
DIRECTOR OF TRANSPORTATION: HD done, 1.5L out, , updated with pt.current condition, VS, Levophed gtt, surgery/wounds status, I/O, TPN
[2020-05-20] MEDS: HYDROCORTISONE SOD SUCCINATE 100 MG/2 ML VIAL IV SCH ×3 (09:27→17:37)
[2020-05-20] MEDS: PANTOPRAZOLE 40 MG VIAL IV SCH (09:27)
--- NOTE | 2020-05-20 09:38 | NUR ---
RT NOTE AM MED NOT GIVEN RT NOT AVAILABLE
[2020-05-20] MEDS: Z GUARD REMEDY 2 OZ OINT TP PRN (09:52)
[2020-05-20] MEDS: THERAHONEY GEL 1.5 OZ TUBE TP SCH (09:52)
[2020-05-20] MEDS: MUPIROCIN OINT 2% 22 GM TUBE SCH ×2 (09:53→21:46)
--- NOTE | 2020-05-20 10:30 | NUR ---
BIOMETRICS INSTRUCTOR: flushed each pigtail drain with 10 ml sterile water
[2020-05-20] MEDS ORDERED: TPN BAG #35 IV PRN ×2 (11:00)
--- NOTE | 2020-05-20 11:00 | NUR ---
AIR CREW SUPERVISOR: abdomen dressing is intact, lower part saturated with old blood, marked by night nurse, same
[2020-05-20] MEDS: HYDROGEL DRESSING 90 GM TUBE TP SCH (11:41)
[2020-05-20] MEDS: CLOTRIMAZOLE 1% 15 GM TUBE TP SCH ×2 (11:42→21:46)
[2020-05-20] MEDS: MICAFUNGIN SODIUM 100 MG in IV NS 0.9% 100 ML IV SCH (11:42)
--- NOTE | 2020-05-20 11:50 | NUR ---
CERAMIC CAPACITOR PROCESSOR: O2sat. 87-90%, no SOB, lavage given before, notified RTs
--- NOTE | 2020-05-20 12:02 | NUR ---
CABIN SERVICE AGENT: pt has order for Gastrografin UGI for small bowel follow through tomorrow, sent message to with possible NGT placement. Vanco 17 level before HD, will give, amika level pending
[2020-05-20] MEDS: VANCOMYCIN 500 MG in IV D5W 100 ML IV PRN (12:08)
--- NOTE | 2020-05-20 12:10 | NUR ---
BUNCH TRIMMER MOLD: pt is suctioned by RT Schofield, evaluated TT, continue 60-80% FiO2
--- NOTE | 2020-05-20 12:30 | NUR ---
RECRUITING INTERNSHIP: [facility], was updated with pt.condition morning time, asked: who removed NGT? will investigate with Charge nurse
--- NOTE | 2020-05-20 12:45 | NUR ---
SKIP HOIST ENGINEER: PILAR Tan, PILAR Sorenson are in room, updated with pt.current condition, VS, neurostatus, Levophed gtt, dressings status, pigtail catheters drain amount, HD done, meds, O2sat.with 2x lavage suction, FiO2 80%, PO meds on hold/no d/tate, absent of NGT, no current information who removed NGT, TPN, see new orders, KANCHAN Sorenson ordered: place NGT to LIS
--- NOTE | 2020-05-20 14:48 | NUR ---
CDL COMPANY DRIVER: called to pharmacy for Amikacin PB
--- NOTE | 2020-05-20 14:50 | NUR ---
TUBULAR PRODUCTS FABRICATOR: PILAR Espinoza is in room, updated with all above, checked catheters, wound dressing, consider re pt mental/neuro status because 2 weeks ago pt was reactive for verbal commands, spoke with PILAR Tan, dx encephalopathy/sepsis SBP 80-90, increased Levophed gtt
--- NOTE | 2020-05-20 15:50 | NUR ---
CDL B DRIVER: inserted NGT, verified position with QuincyRN, DlRN, connected to LIS with straw/little pinky secretion suction out
[2020-05-20] MEDS: AMIKACIN 450 MG in IV D5W 100 ML IV PRN (17:42)
--- NOTE | 2020-05-20 18:59 | NUR ---
INITIAL RESULTS OF DUPLEX VENOUS UPPER EXT DARLIN SHOWED POSITIVE FOR DVT AT LT SUBCLAVIAN AND AXILLARY VEINS. PRELIM FINDINGS RELAYED TO RN.
--- NOTE | 2020-05-20 19:15 | NUR ---
FITNESS COACH: LATOSHA Randolph updated with all above, Doppler US done: L.s/c and axillary veins DVT positive, sent message for PILAR Espinoza who ordered US, KANCHAN Sorenson called, updated with pt.abdomen dressing status, NGT to LIS, ordered:rescheduled Gastrografin UGI Xray test on Saturday, KB Santana is aware
--- NOTE | 2020-05-20 20:00 | NUR ---
SPEED READING TEACHER S/W Yazmin SHERMAN W/ORDERS TO MOVE GASTROGRAFFIN TO SATURDAY AND DO NOT CHANGE DRESSING JUST REINFORCE. CONTINUE TO MONITOR.
--- NOTE | 2020-05-20 20:00 | NUR ---
PHARMACEUTICAL ENGINEER RCD PT W/DX SEPSIS; S/P CLOSURE OF GASTRIC PERF AND GTUBE REMOVAL AND ABD WOUND DEBRIDEMENT. DRESSING IS SATURATED. REINFORCED AT THIS TIME DRESSING CHANGE NOT TO BE DONE UNTIL 05/22. PT IS LETHARGIC. NSR ON MONITOR. ON LEVOPHED AT 0.03 MCG/KG/MIN TO MAINTAIN SBP >90. SHILEY 6 W/VENT SETTINGS AC 12 550 80%; RENDERED ORAL CARE. EDEMA AND PITTING NOTED TO BUE W/DRESSINGS IN PLACE. GASTROGRAFFIN FOR 05/[address] PATIENT RELATIONS REPRESENTATIVE; PIGTAIL CATHETERS FLUSHED AT THIS TIME PER ORDER. NG TUBE LIS. PT IS NPO.
[2020-05-20] MEDS: COLISTIMETHATE SODIUM 75 MG in IV NS 0.9% 50 ML IV SCH (20:12)
[2020-05-20] MEDS: NOREPINEPHRINE 8 MG in IV NS 0.9% 242 ML IV PRN (20:13)
--- NOTE | 2020-05-20 20:30 | NUR ---
SHEET ROCK INSTALLER PT NOTED W/ LEFT AXILLARY AND LEFT SUBCLAVIAN VENOUS THROMBOSIS; Sammy TORRES SIDE SEAM TENDER AND Juliet WALLS NOTIFIED OF RESULTS; ORDER FOR CONSULT W/DR FERNANDEZ NOTED. CONTINUE TO MONITOR PT.
[2020-05-20] MEDS ORDERED: TPN BAG #34 IV PRN ×4 (21:00)
--- NOTE | 2020-05-20 21:47 | NUR ---
RT NOTE Pt rec'd trached on [facility] vent on AC mode settings as charted. trach is patent and secured. No resp distress or sob noted. Sx'd for thick mod amt of pale yellow secretions. Alarms are set and audible. Ambu bag bedside. Vent plugged into red outlet. Will continue to monitor closely. Addendum: 05/20/20 at 2147 by YANELI NUÑEZ RT Amended: Links added.
[2020-05-20] MEDS: IV NS 0.9% 250 ML IV PRN (23:00)
[2020-05-21] VITALS (100 sets, daily range): BP systolic 66–139; BP diastolic 28–106
[2020-05-21] MEDS: IPRATROPIUM NEB FS 0.5 MG/2.5 ML AMPUL.NEB NEB SCH ×4 (01:48→19:59)
[2020-05-21 05:17] LABS: CALCIUM, SERUM 10.1 mg/dL (8.5-10.1); CARBON DIOXIDE 26 mmol/L (21-32); CHLORIDE 98 mmol/L (98-107); CREATININE 1.8 mg/dL (0.6-1.3); GLUCOSE 134 mg/dL (74-106); MAGNESIUM 1.5 mg/dL (1.8-2.4); PHOSPHORUS 2.9 mg/dL (2.5-4.9); POTASSIUM 3.1 mmol/L (3.5-5.1); SODIUM SERUM 132 mmol/L (136-145); UREA NITROGEN, BLOOD 75 mg/dL (7-18)
[2020-05-21] MEDS: BLOOD SUGAR DIAGNOSTIC 1 EACH STRIP IN SCH ×3 (05:34→17:47)
[2020-05-21] MEDS: METOCLOPRAMIDE HCL 10 MG/2 ML VIAL IV SCH ×3 (05:34→17:48)
[2020-05-21] MEDS: METRONIDAZOLE 500MG/ NS 100ML 500 MG in PREMIX 1 EA IV SCH ×3 (05:35→21:53)
--- NOTE | 2020-05-21 06:26 | NUR ---
CLERICAL CLERK NO OUTPUT FROM PIGTAIL CATHETERS. UNABLE TO DECREASE LEVOPHED DRIP MAINTAINED AT 0.03 MCG/KG/MIN. CONTINUE TO MONITOR.
[2020-05-21] MEDS: LEVOTHYROXINE INJ 100 MCG VIAL IV SCH (07:29)
--- NOTE | 2020-05-21 07:56 | NUR ---
ADVERTISING DISPLAY ROTATOR: pt.is with open eyes, rest, no eyes contact, unable to follow commands, grimacing with touch/suction, no SOB now, O2sat.90-92% on FiO2 80%, suctioned with large yellowish thick amount, SR, on Levophed gtt 0.03 mcg/kg/m now, SBP 80-109, continue titrate, anuric, NGT to LIS: 100ml tenorio straw secretion over night by report, abdomen dressing endorsed with add tapes/no changed by PILAR Sorenson request/waiting to change dressing, no drain over night from abdomen pigtail catheters/flushed with 10ml sterile water each, L.arm subclavian and axillary veins DVT+/waiting consult, K+3.1/will s/w MD/?next HD, no fever reported, no BM, all w/c done
[2020-05-21] MEDS: HYDROCORTISONE SOD SUCCINATE 100 MG/2 ML VIAL IV SCH ×3 (08:23→17:48)
[2020-05-21] MEDS: ERYTHROMYCIN ETHYLSUCCINATE 200 MG/5 ML SUSPENSION GT SCH ×3 (08:23→17:00)
[2020-05-21] MEDS: CITALOPRAM HYDROBROMIDE 10 MG TABLET GT SCH (08:23)
[2020-05-21] MEDS: PANTOPRAZOLE 40 MG VIAL IV SCH (08:23)
[2020-05-21] MEDS: CALCIUM POLYCARBOPHIL 625 MG TABLET GT SCH ×2 (08:23→17:00)
[2020-05-21] MEDS: LACTULOSE 10 G/15 ML UDC (PYXIS) GT SCH ×2 (08:23→17:00)
[2020-05-21] MEDS: GLYCOPYRROLATE 1 MG TABLET GT SCH ×3 (08:23→17:00)
[2020-05-21] MEDS: Magnesium 1GM/D5W 100ML PREMIX 100 ML IV SCH ×2 (08:24→09:24)
[2020-05-21] MEDS: MULTIVITAMINS,THERAGRAN 1 UDTAB TABLET GT SCH (08:24)
[2020-05-21] MEDS: POTASSIUM CL. PREMIX PERIPHER. 50 ML IV SCH ×7 (08:24→13:43)
[2020-05-21] MEDS: ASCORBIC ACID 500 MG TABLET GT SCH (08:24)
[2020-05-21] MEDS: Z GUARD REMEDY 2 OZ OINT TP PRN (08:26)
[2020-05-21] MEDS: HYDROGEL DRESSING 90 GM TUBE TP SCH (08:26)
[2020-05-21] MEDS: CLOTRIMAZOLE 1% 15 GM TUBE TP SCH ×2 (08:27→21:54)
[2020-05-21] MEDS: THERAHONEY GEL 1.5 OZ TUBE TP SCH (08:27)
[2020-05-21] MEDS: MUPIROCIN OINT 2% 22 GM TUBE SCH ×2 (08:28→21:54)
--- NOTE | 2020-05-21 08:30 | NUR ---
TELEMARKETER SUPERVISOR: is in room, updated with pt.current neurostatus, VS, I/O, Levophed gtt, TPN, NGT to LIS, wounds/abdomen drains, L.arm DVT+/waiting consult, orders for K+, Mg replacement, POC
--- NOTE | 2020-05-21 09:24 | NUR ---
OVERNIGHT STOCKER: updated with VS, suction amount, desat.episodes/lavages+, vent.setting, O2sat., Levophed gtt, TPN, L.arm DVT, NGT to LIS, wounds status, ordered: peep 5, CXR
--- NOTE | 2020-05-21 10:10 | NUR ---
INSIDE SALES SPECIALIST: Dominick,EMAIL MARKETING MANAGER is in room, got report re pt.neuro status, Levophed gtt, VS, I/O, O2sat with large suction amount, wounds status and easy bleeding sacral/buttocks wounds, no drain from abdomen pigtail catheters over night, NGT to LIS amount, labs, HD, TPN, orders, Gastrografin Xray test rescheduled on Saturday, spoke with /consider re high risk of bleeding with meds for DVT, spoke with pt.family members, still FC, spoke with , see new orders
--- NOTE | 2020-05-21 10:11 | NUR ---
BOTTOMING ROOM SUPERVISOR: Kandis,RN confirmed: pt.came from OR without NGT on 05/19
[2020-05-21] MEDS: MICAFUNGIN SODIUM 100 MG in IV NS 0.9% 100 ML IV SCH (10:27)
--- NOTE | 2020-05-21 10:47 | NUR ---
APARTMENT ASSISTANT MANAGER: GOLDIE Durand is in room to start HD, notified him re pt.current condition, VS, Levophed gtt, pt is getting K+,Mg IV, labs, placed orders for Vanco, Amikacin level before HD
--- NOTE | 2020-05-21 13:00 | NUR ---
RATOPRINTER: notified for ABG: pH 7.18/57/263/21, changed vent setting: AC24,tV 550, 50% FiO2, peep 5
[2020-05-21] MEDS: FAT EMULSION 20% 500 ML in PREMIX 1 EA IV SCH (13:33)
[2020-05-21 13:38] LABS: ABG BASE EXCESS -6.9 mmol/L; ABG OXYGEN SATURATION 99.4 % (92.0-98.5); ABG PCO2 57.4 mmHg (35.0-45.0); ABG PH 7.183 (7.350-7.450); ABG PO2 263.1 mmHg (75.0-100.0); MetHb 0.1 % (0.0-1.5); O2Hb 98.3 % (94.0-97.0); PEEP,BG 5 cm H2O; SITE, ABG Left Brachial; VT, ABG 500 mL
[2020-05-21] MEDS: VANCOMYCIN 500 MG in IV D5W 100 ML IV PRN (13:46)
[2020-05-21] MEDS: NOREPINEPHRINE 8 MG in IV NS 0.9% 242 ML IV PRN (14:30)
[2020-05-21] MEDS ORDERED: TPN BAG #37 IV PRN ×4 (15:30)
[2020-05-21] MEDS ORDERED: TPN BAG #36 IV PRN ×2 (15:30)
--- NOTE | 2020-05-21 16:40 | NUR ---
MIDDLE CARD TENDER: all PM/skin/bedbath/wounds care done, abdomen incision wound dressing is 75% saturated/soaked with S/S discharge, changed dressing f/u orders, charge nurse evaluated wound too, sacral/buttocks/perineal wounds/excoriation w/c done, pt.is able to urinate, f/c placed in, sent urine/C sample, continue titrate Levophed gtt, continue titrate Levophed gtt, all pigtail catheters emptied, NGT to LIS+, SR, O2sat. over 93%, no SOB, suctioned well, Tomasa, IDNP was in unit/updated with all above, see new orders
--- NOTE | 2020-05-21 18:30 | NUR ---
DISPENSING OPERATOR: BG 98, Amikacin level 13.2/hold IV BG, PICC dressing kit is not in Pyxis/unable to change/will notify next nurse, Levophed 0.04 mcg/kg/m now, continue titrate
--- NOTE | 2020-05-21 19:50 | NUR ---
curriculum developer. initial assessment. received the pt rest on the bed. trach to vent connected. shiley#6,ac 24,tv 550, fio2 50%, peep 5. sat is 100%. pt responding pain full stimuli. does not follow commands. security monitor showing nsr. iv rt upper arm picc line. rt ij hd cath. tpn 75ml/h,lipid 21ml/h,levophed 0.04mcg/kg/min. afebrile. fc patent. at this time pyuria present lt nare ngt low intermittent suction. npo. abdomenal 3 drain with pigtail present. rt side 1 , lt side 2. hob elevated, npo. miroslava hand weeping. will continue to monitor vitals.
[2020-05-21] MEDS: COLISTIMETHATE SODIUM 75 MG in IV NS 0.9% 50 ML IV SCH (21:53)
[2020-05-22] VITALS (87 sets, daily range): BP systolic 72–144; BP diastolic 39–75
[2020-05-22] MEDS: METOCLOPRAMIDE HCL 10 MG/2 ML VIAL IV SCH ×4 (01:19→18:24)
[2020-05-22] MEDS: IV NS 0.9% 250 ML IV PRN (01:20)
[2020-05-22] MEDS: IPRATROPIUM NEB FS 0.5 MG/2.5 ML AMPUL.NEB NEB SCH ×4 (01:44→20:12)
[2020-05-22 04:36] LABS: CALCIUM, SERUM 9.8 mg/dL (8.5-10.1); CARBON DIOXIDE 23 mmol/L (21-32); CHLORIDE 93 mmol/L (98-107); CREATININE 2.1 mg/dL (0.6-1.3); GLUCOSE 159 mg/dL (74-106); MAGNESIUM 1.3 mg/dL (1.8-2.4); PHOSPHORUS 2.2 mg/dL (2.5-4.9); POTASSIUM 3.9 mmol/L (3.5-5.1); SODIUM SERUM 125 mmol/L (136-145)
[2020-05-22 04:42] LABS: UREA NITROGEN, BLOOD 82 mg/dL (7-18)
[2020-05-22] MEDS: METRONIDAZOLE 500MG/ NS 100ML 500 MG in PREMIX 1 EA IV SCH ×3 (05:26→21:12)
[2020-05-22] MEDS: BLOOD SUGAR DIAGNOSTIC 1 EACH STRIP IN SCH ×4 (05:27→18:24)
--- NOTE | 2020-05-22 06:07 | NUR ---
FAMILY PRESERVATION CASEWORKER. CLOSING NOTE. AM CARE. GIVEN ORAL CARE, BED BATH GIVEN. LINEN CHANGED. REMAINING SAME VENT SETTING TOLERATED WELL. SAT 93%. NO ACUTE DISTRESS NOTED. STRINGED INSTRUMENT TUNER SHOWING IN AND OUT CONTROLLED A FIB. IV RT UPPER ARM PICC LINE. TPN 75 ML/H,LIPID 21ML/H,LEVOPHED 0.03MCG/KG/MIN, LIPID 21ML/H HOB ELEVATED. FC PATENT AFEBRILE. RT SIDE DRAIN 0, LT SIDE #1 40 ML SEROUS FLUID, ,#2 , 30 ML/H SEROSANGUINEOUS. DARLIN HAND WEEPING. WILL CONTINUE TO MONITOR VITALS.
--- NOTE | 2020-05-22 07:14 | NUR ---
CENTRAL STATION OPERATOR NOTES RECEIVED PATIENT OPENS EYES , FOLLOW SIMPLE COMMANDS , NOT IN ACUTE DISTRESS ,RESPIRATIONS EVEN AND UNLABORED WITH SPO2 OF 100% VIA MECHANICAL VENT SETTINGS ORDERED , TRACH OF SHILEY # [address] , AFIB CONTROLLED 70-80 ,LEFT NGT ON LOW INTERMITTENT SUCTION DRAINING WITH CLEAR YELLOW DRAINAGE , FC DRAINING VIA GRAVITY WITH CLOUDY YELLOW NOTED WITH WITH SEDIMENTS , RIJ HD CATH CLEAN DRY AND INTACT , CHRISTINA PICC LINE WITH LEVOPHED @ 0.03MCG/KG/MIN , TPN @ 75ML/HR , TPN @ 21ML/HR , N @ TKO INFUSING WELL , RIGHT LATERAL ACCORDION DRAIN - DRAINING WITH SEROSANGUINEOUS OUTPUT , LEFT LATERAL ACCORDION DRAIN X2 DRAINING WITH SEROUS AND SEROSANGUINEOUS OUTPUT , ABD DRESSING CLEAN DRY AND INTACT , WILL CONTINUE TO MONITOR .
[2020-05-22] MEDS: LEVOTHYROXINE INJ 100 MCG VIAL IV SCH (07:47)
[2020-05-22] MEDS: Magnesium 1GM/D5W 100ML PREMIX 100 ML IV SCH ×2 (07:47→08:47)
[2020-05-22 08:19] LABS: ABG BASE EXCESS -6.2 mmol/L; ABG OXYGEN SATURATION 99.1 % (92.0-98.5); ABG PCO2 37.7 mmHg (35.0-45.0); ABG PH 7.326 (7.350-7.450); ABG PO2 147.8 mmHg (75.0-100.0); AaDO2 166.3 mmHg; COHb 1.3 % (0.5-1.5); MetHb 0.3 % (0.0-1.5); O2Hb 97.5 % (94.0-97.0); SITE, ABG Right Radial; VENT MODE, BG AC 24 550 +5 50%
[2020-05-22] MEDS: LACTULOSE 10 G/15 ML UDC (PYXIS) GT SCH ×2 (08:37→16:27)
[2020-05-22] MEDS: CITALOPRAM HYDROBROMIDE 10 MG TABLET GT SCH (08:37)
[2020-05-22] MEDS: CALCIUM POLYCARBOPHIL 625 MG TABLET GT SCH ×2 (08:38→16:28)
[2020-05-22] MEDS: GLYCOPYRROLATE 1 MG TABLET GT SCH ×3 (08:38→16:28)
[2020-05-22] MEDS: ASCORBIC ACID 500 MG TABLET GT SCH (08:38)
[2020-05-22] MEDS: MULTIVITAMINS,THERAGRAN 1 UDTAB TABLET GT SCH (08:38)
[2020-05-22] MEDS: ERYTHROMYCIN ETHYLSUCCINATE 200 MG/5 ML SUSPENSION GT SCH ×3 (08:38→16:28)
[2020-05-22] MEDS: HYDROCORTISONE SOD SUCCINATE 100 MG/2 ML VIAL IV SCH ×2 (08:40→12:00)
[2020-05-22] MEDS: MUPIROCIN OINT 2% 22 GM TUBE SCH ×2 (08:40→21:10)
[2020-05-22] MEDS: PANTOPRAZOLE 40 MG VIAL IV SCH (08:40)
[2020-05-22] MEDS: HYDROGEL DRESSING 90 GM TUBE TP SCH (08:41)
[2020-05-22] MEDS: THERAHONEY GEL 1.5 OZ TUBE TP SCH (08:41)
[2020-05-22] MEDS: CLOTRIMAZOLE 1% 15 GM TUBE TP SCH ×2 (08:41→21:10)
--- NOTE | 2020-05-22 08:45 | NUR ---
ENERGY RATER NOTES SEEN AND EVALUATED BY DR LEDBETTER , DISCUSSED LABS , CHEST XRAY , ABG RESULTS , TOLERATING CURRENT VENT SETTINGS WITH FIO2 OF 50% , AND PEEP OF 5 , THICK SECRETIONS UPON SUCTIONING , AFEBRILE , ON LEVOPHED @ 0.03MCG/KG/MIN , AWARE
[2020-05-22 08:58] LABS: BASOPHILS # (AUTO) 0.2 /CMM (0.0-0.2); BASOPHILS % (AUTO) 0.6 % (0.0-2.0); EOSINOPHILS % (AUTO) 0.4 % (0.0-6.0); HEMATOCRIT 22 % (33-45); LYMPHOCYTES # (AUTO) 0.5 /CMM (0.8-4.8); LYMPHOCYTES % (AUTO) 1.8 % (20.0-44.0); MEAN CORPUSCULAR HGB CONC 37 g/dl (31.0-36.0); MEAN CORPUSCULAR VOLUME 108 fL (82-100); MONOCYTES % (AUTO) 0.1 % (2.0-12.0); NEUTROPHILS # (AUTO) 27.4 /CMM (1.8-8.9); NEUTROPHILS % (AUTO) 97.1 % (43.0-81.0); PLATELET COUNT (AUTO) 172 /CMM (150-450); WHITE BLOOD COUNT (AUTO) 28.2 K/uL (4.3-11.0)
[2020-05-22 09:14] LABS: BAND % (MANUAL) 19 % (0.0-5.0); EOSINOPHILS % (MANUAL) 1 % (0-4); LYMPHOCYTES % (MANUAL) 2 % (16-48); METAMYELOCYTES % 1 % (0-0); MYELOCYTES % 1 % (0-0); NEUTROPHILS % (MANUAL) 76 (42-76)
[2020-05-22] MEDS ORDERED: TPN BAG #38 IV PRN ×2 (10:00)
--- NOTE | 2020-05-22 11:32 | NUR ---
HOUSING INSPECTORS NOTES SEEN AND EVEALUATED BY LEROY WALLS , DISCUSSED LABS , CURRENT VITAL SIGNS , AFEBRILE , ON LEVOPHED @ 0.03MCG/KG/MIN , TOLERATING CURRENT VENT SETTINGS , PT AWAKE LETHARGIC ABLE TO FOLLOW SIMPLE COMMANDS , NGT ON LOW INTERMITTENT SUCTION DRAINING WITH YELLOWISH OUTPUT , DISCUSSED DRAINAGE AND WOUND CHARACTERISTICS , PENDING XR GASTROGRAFIN , DISCUSSED URINE COLOR AND CHARACTERISTICS , PER BIOCHEMICAL ENGINEER ORDER URINE CULTURE , ORDER CARRIED OUT
--- NOTE | 2020-05-22 11:36 | NUR ---
FRESH WORK WRAPPER LAYER NOTES MESSAGED AHMED IF PT IS SCHEDULE FOR HD , PER AHMED PT WILL BE HAVING HD TODAY , VAHED PHARMACIST NOTIFIED , WILL CONTINUE TO MONITOR
[2020-05-22] MEDS: NOREPINEPHRINE 8 MG in IV D5W 250 ML IV PRN (12:00)
[2020-05-22] MEDS: MICAFUNGIN SODIUM 100 MG in IV NS 0.9% 100 ML IV SCH (12:03)
[2020-05-22] MEDS: INSULIN REGULAR, HUMAN 100 UNIT/ML 3 ML VIAL SQ PRN ×2 (12:05→18:25)
[2020-05-22 12:35] LABS: CALCIUM, SERUM 11.2 mg/dL (8.5-10.1); CARBON DIOXIDE 22 mmol/L (21-32); CHLORIDE 92 mmol/L (98-107); GLUCOSE 131 mg/dL (74-106); POTASSIUM 4.4 mmol/L (3.5-5.1); SODIUM SERUM 125 mmol/L (136-145)
[2020-05-22 12:37] LABS: UREA NITROGEN, BLOOD 87 mg/dL (7-18)
[2020-05-22 12:41] LABS: ALANINE AMINOTRANSFERASE 9 U/L (12-78); ALKALINE PHOSPHATASE 187 U/L (46-116); BILIRUBIN,TOTAL 0.9 mg/dL (0.2-1.0); MAGNESIUM 2.1 mg/dL (1.8-2.4); PHOSPHORUS 2.7 mg/dL (2.5-4.9); TOTAL PROTEIN, SERUM 5.5 g/dL (6.4-8.2)
[2020-05-22 13:04] LABS: ASPARTATE AMINOTRANSFERASE 17 U/L (15-37)
[2020-05-22] MEDS ORDERED: Sodium Phosphate 15 MMOL in IV NS 0.9% 245 ML IV SCH (14:00)
--- NOTE | 2020-05-22 15:40 | NUR ---
DIESEL SCOOP OPERATOR NOTES PT STABLE S/P HD , 2L OUT , LEVOPHED CHANGED @ 0.04MCG/KG/MIN , WILL CONTINUE TO MONITOR
--- NOTE | 2020-05-22 19:30 | NUR ---
FUSING MACHINE FEEDER INITIAL SHIFT NOTES RECEIVED PATIENT IN BED, AWAKE, LETHARGIC, ABLE TO FOLLOW BASIC COMMANDS AND NOD YES/NO. BREATHING EVEN AND NONLABORED, ON MECHANICAL VENTILATION WITH PRESCRIBED SETTINGS VIA TRACH, TOLERATING WELL, NO SIGNS AND SYMPTOMS OF RESPIRATORY DISTRESS AT THIS TIME. BEDSIDE TELEMETRY MONITORING SHOWS SINUS RHYTHM , HR 99 BPM AT THIS TIME. RIGHT UPPER ARM PICC PATENT AND INTACT, FLUSHED WITH NS, LEVOPHED DRIP CURRENTLY INFUSING @ 0.02 MCG/KG/MIN. MATSON CATHETER PATENT AND INTACT, DRAINING SMALL AMOUNT OF CLOUDY YELLOW URINE VIA GRAVITY. PATIENT NOTED WITH RIGHT FLANK ACCORDION DRAIN X1, WITH SANGUINEOUS OUTPUT. ALSO NOTED WITH LEFT FLANK ACCORDION DRAIN X2, X1 WITH SEROUS OUTPUT, X1 WITH SEROUS OUTPUT. ABDOMINAL WOUND DRESSING CLEAN, DRY, AND INTACT AT THIS TIME. WILL CONTINUE TO CLOSELY MONITOR
--- NOTE | 2020-05-22 20:00 | NUR ---
TACTICAL RESPONSE GROUP OFFICER NOTES PATIENT NOTED TO ATTEMPT MOUTH WORDS DURING REPOSITIONING. AFTER REPOSITIONING, PATIENT NOTED WITH BLANK STARE, ONLY SOMETIMES TRACKING
[2020-05-22] MEDS: COLISTIMETHATE SODIUM 75 MG in IV NS 0.9% 50 ML IV SCH (20:09)
[2020-05-23] VITALS (100 sets, daily range): BP systolic 78–144; BP diastolic 32–85
[2020-05-23] MEDS: METOCLOPRAMIDE HCL 10 MG/2 ML VIAL IV SCH ×4 (00:06→17:25)
[2020-05-23] MEDS: BLOOD SUGAR DIAGNOSTIC 1 EACH STRIP IN SCH ×4 (00:06→18:03)
[2020-05-23] MEDS: INSULIN REGULAR, HUMAN 100 UNIT/ML 3 ML VIAL SQ PRN ×2 (00:13→06:31)
[2020-05-23] MEDS: IPRATROPIUM NEB FS 0.5 MG/2.5 ML AMPUL.NEB NEB SCH ×4 (01:25→19:52)
--- NOTE | 2020-05-23 02:00 | NUR ---
WATER POLLUTION CONTROL INSPECTOR NOTES - AMIKACIN PENDING AMIKACIN LEVEL STILL PENDING. WILL WAIT FOR RESULT
[2020-05-23] MEDS: MORPHINE SULFATE INJ 2 MG/ML DISP.SYRIN IM PRN (03:39)
[2020-05-23 04:06] LABS: BASOPHILS # (AUTO) 0.1 /CMM (0.0-0.2); BASOPHILS % (AUTO) 0.4 % (0.0-2.0); EOSINOPHILS % (AUTO) 0.2 % (0.0-6.0); HEMATOCRIT 21 % (33-45); LYMPHOCYTES # (AUTO) 0.5 /CMM (0.8-4.8); LYMPHOCYTES % (AUTO) 1.3 % (20.0-44.0); MEAN CORPUSCULAR HGB CONC 31 g/dl (31.0-36.0); MEAN CORPUSCULAR VOLUME 107 fL (82-100); MONOCYTES # (AUTO) 0.2 /CMM (0.1-1.30); MONOCYTES % (AUTO) 0.5 % (2.0-12.0); NEUTROPHILS # (AUTO) 34.1 /CMM (1.8-8.9); NEUTROPHILS % (AUTO) 97.6 % (43.0-81.0); PLATELET COUNT (AUTO) 130 /CMM (150-450)
--- NOTE | 2020-05-23 04:30 | NUR ---
MANAGER FOREIGN NOTES PATIENT DESATTING TO 80s, FIO2 INCREASED TO 70%. RT MALCOM JOHNSTON
[2020-05-23 05:04] LABS: CALCIUM, SERUM 10.3 mg/dL (8.5-10.1); CARBON DIOXIDE 25 mmol/L (21-32); CHLORIDE 95 mmol/L (98-107); CREATININE 1.8 mg/dL (0.6-1.3); GLUCOSE 141 mg/dL (74-106); PHOSPHORUS 2.9 mg/dL (2.5-4.9); POTASSIUM 3.1 mmol/L (3.5-5.1); SODIUM SERUM 129 mmol/L (136-145); UREA NITROGEN, BLOOD 71 mg/dL (7-18)
[2020-05-23 05:55] LABS: HEMOGLOBIN 6.3 g/dL (11.5-14.8); RED BLOOD CELL COUNT(AUTO) 1.93 MIL/uL (4.0-5.2)
--- NOTE | 2020-05-23 06:00 | NUR ---
JOINERY PATTERNMAKER NOTES - ACCORDION DRAIN OUTPUT RIGHT- 45ML SANGUINEOUS LEFT #1 - 20ML SEROUS LEFT #2 - 20ML SEROSANGUINEOUS
[2020-05-23 06:13] LABS: BAND % (MANUAL) 3 % (0.0-5.0); LYMPHOCYTES % (MANUAL) 2 % (16-48); MYELOCYTES % 1 % (0-0); NEUTROPHILS % (MANUAL) 92 (42-76); PROMYELOCYTES % 2 % (0-0)
[2020-05-23] MEDS: METRONIDAZOLE 500MG/ NS 100ML 500 MG in PREMIX 1 EA IV SCH ×3 (06:29→21:15)
--- NOTE | 2020-05-23 07:15 | NUR ---
PROVIDER SERVICE REPRESENTATIVE NOTES RECEIVED PATIENT OPENS EYES , OCCASIONALLY FOLLOW COMMANDS , BUT NOTED BLANK STARING AT THIS TIME , NOT IN ACUTE DISTRESS ,RESPIRATIONS EVEN AND UNLABORED WITH SPO2 OF 100% VIA MECHANICAL VENT SETTINGS ORDERED , TRACH OF SHILEY # [address] , SR 70-80 ,LEFT NGT ON LOW INTERMITTENT SUCTION DRAINING WITH CLEAR DRAINAIGE , FC DRAINING VIA GRAVITY WITH CLOUDY YELLOW NOTED WITH WITH SEDIMENTS , RIJ HD CATH CLEAN DRY AND INTACT , CHRISTINA PICC LINE WITH LEVOPHED @ 0.02MCG/KG/MIN , TPN @ 75ML/HR , NS TKO INFUSING WELL , RIGHT LATERAL ACCORDION DRAIN - DRAINING WITH SEROSANGUINEOUS OUTPUT , LEFT LATERAL ACCORDION DRAIN X2 DRAINING WITH SEROUS AND SEROSANGUINEOUS OUTPUT , ABD DRESSING CLEAN DRY AND INTACT , WILL CONTINUE TO MONITOR .
[2020-05-23] MEDS: LEVOTHYROXINE INJ 100 MCG VIAL IV SCH (07:45)
[2020-05-23] MEDS: LORAZEPAM INJ 2 MG/ML VIAL IV PRN (07:45)
[2020-05-23] MEDS: MULTIVITAMINS,THERAGRAN 1 UDTAB TABLET GT SCH (08:18)
[2020-05-23] MEDS: CITALOPRAM HYDROBROMIDE 10 MG TABLET GT SCH (08:18)
[2020-05-23] MEDS: ERYTHROMYCIN ETHYLSUCCINATE 200 MG/5 ML SUSPENSION GT SCH ×3 (08:18→16:20)
[2020-05-23] MEDS: CALCIUM POLYCARBOPHIL 625 MG TABLET GT SCH ×2 (08:18→16:20)
[2020-05-23] MEDS: GLYCOPYRROLATE 1 MG TABLET GT SCH ×3 (08:18→16:20)
[2020-05-23] MEDS: ASCORBIC ACID 500 MG TABLET GT SCH (08:18)
[2020-05-23] MEDS: LACTULOSE 10 G/15 ML UDC (PYXIS) GT SCH ×2 (08:18→16:20)
--- NOTE | 2020-05-23 08:19 | NUR ---
fio2 decreased to 50% per dr. emery. Addendum: 05/23/20 at 0820 by HEIKE AMADO RT Amended: Links added.
[2020-05-23] MEDS: MUPIROCIN OINT 2% 22 GM TUBE SCH ×2 (08:35→21:15)
[2020-05-23] MEDS: PANTOPRAZOLE 40 MG VIAL IV SCH (08:35)
[2020-05-23] MEDS: HYDROCORTISONE SOD SUCCINATE 100 MG/2 ML VIAL IV SCH ×2 (08:35→17:25)
[2020-05-23] MEDS: THERAHONEY GEL 1.5 OZ TUBE TP SCH (08:36)
[2020-05-23] MEDS: HYDROGEL DRESSING 90 GM TUBE TP SCH (08:36)
[2020-05-23] MEDS: CLOTRIMAZOLE 1% 15 GM TUBE TP SCH ×2 (08:36→21:16)
--- NOTE | 2020-05-23 09:42 | NUR ---
RN WILL CALL ONCE ORDER IS VERIFIED @3506 YW
[2020-05-23] MEDS: MICAFUNGIN SODIUM 100 MG in IV NS 0.9% 100 ML IV SCH (10:04)
--- NOTE | 2020-05-23 11:00 | NUR ---
BIZTALK CONSULTANT NOTES SEEN AND EVALUATED BY DR AGYLE , DISCUSSED LABS , CURRENT VENT SETTINGS , ON LEVOPHED @ 0.05MCG/KG/MIN , AFEBRILE , HGB 6.3 , PENDING ONE UNIT PRBC , PER MD PT IS SCHEDULED FOR HD , GIVE ONE UNIT PRBC WITH HD .
--- NOTE | 2020-05-23 11:09 | NUR ---
TANKER SERVICEMAN NOTES LEROY TELEPHONE INSTALLER AT BEDSIDE , DISCUSSED LABS, CHEST XRAY , CURRENT VS , AFEBRILE , ON LEVOPHED @ 0.05MCG/KG/MIN , DISCUSSED DRAIN OUTPUT , PT OBTUNDED ,OCCASIONALLY TRACKS AND FOLLOW SIMPLE COMMANDS , ABDOMINAL WOUND PICTURE LAST NIGHT SHOWED TO TELEPHONE INSTALLER , CALLED SISTER AND SON TO FOLLOW UP REGARDING PLAN OF CARE .
--- NOTE | 2020-05-23 11:15 | NUR ---
PATIENT SERVICES TECHNICIAN NOTES RECEIVED A CALL FROM RADIOLOGIST THAT THEY CANNOT DO XRAY GASTROGRAFIN OF UPPER GI PT IS BEDBOUND , NOTIFIED DR BRONSON AND KEMAL PATIENT RELATIONS SPECIALIST , SPOKE WITH DORINDA FROM RADIOLOGY , PER [facility] RADIOLOGIST WILL VERIFY ORDER WITH
[2020-05-23] MEDS ORDERED: DIATR MEGLU/DIATRIZOATE SODIUM 120 ML BOTTLE (GASTROGRAPHIN) ONE (11:57)
--- NOTE | 2020-05-23 12:45 | NUR ---
B2B SALES CONSULTANT NOTES NOTIFIED DR DUDLEY REGARDING PT HGB OF 6.3 PENDING 1 UNIT PRBC , PT ON LEVOPHED @ 0.05MCG/KG/MIN SBP OF 80'S , DR DUDLEY NOTIFIED DR BRONSON PER OK TO DO TEST TOMORROW ,
--- NOTE | 2020-05-23 13:11 | NUR ---
PT IS UNSTABLE PER RN//WILL TRY AGAIN TOMORROW YW
[2020-05-23] MEDS: FAT EMULSION 20% 500 ML in PREMIX 1 EA IV SCH (13:18)
--- NOTE | 2020-05-23 14:12 | NUR ---
SUPREME COURT JUDGE NOTES NOTIFIED DR GAYLE REGARDING PT K OF 3.1 , PT SCHEDULED FOR HD , PER REPLACE K WITH 40MEQ KCL , AND GIVE 4000 U SQ EPOGEN EVERY SAT , SAT , SATURDAY , ORDERS CARRIED OUT
[2020-05-23] MEDS ORDERED: TPN BAG #40 IV PRN ×2 (15:00)
[2020-05-23] MEDS ORDERED: TPN BAG #39 IV PRN ×4 (15:00)
[2020-05-23] MEDS: EPOETIN ALFA (4000 UNIT) 4,000 UNIT/ML VIAL SQ SCH (15:38)
--- NOTE | 2020-05-23 15:51 | NUR ---
RIG SITE ENGINEER NOTES PT STABLE S/P HD , 2L OUT , LEVOPHED TITRATED DOWN TO@ 0.05MCG/KG/MIN , BP OF 139/61MMHG , AFEBRILE , HR SR 82 SPO2 OF 100% , NO TRANSFUSION REACTION S/P BLOOD TRANSFUSION
[2020-05-23] MEDS: NOREPINEPHRINE 8 MG in IV D5W 250 ML IV PRN (16:01)
[2020-05-23] MEDS: POTASSIUM CL. PREMIX PERIPHER. 50 ML IV SCH ×4 (16:01→19:20)
[2020-05-23] MEDS: CLOTRIMAZOLE/BETAMETASONE DIPROPIONATE 15 GM TUBE TP SCH (17:23)
[2020-05-23] MEDS: VANCOMYCIN 500 MG in IV D5W 100 ML IV PRN (18:26)
--- NOTE | 2020-05-23 19:30 | NUR ---
PIANO MOVER INITIAL SHIFT NOTES RECEIVED PATIENT IN BED, AWAKE, OBTUNDED, OCCASIONALLY REACTIVE TO PAINFUL STIMULI, MANIFESTED BY FACIAL GRIMACE AND ATTEMPT TO MOUTH WORDS. BREATHING EVEN AND NONLABORED, ON MECHANICAL VENTILATION WITH PRESCRIBED SETTINGS VIA TRACH, TOLERATING WELL, NO SIGNS AND SYMPTOMS OF RESPIRATORY DISTRESS AT THIS TIME. 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 RIGHT UPPER ARM PICC PATENT AND INTACT, FLUSHED WITH NS, LEVOPHED DRIP CURRENTLY INFUSING @ 0.02 MCG/KG/MIN. MATSON CATHETER PATENT AND INTACT, DRAINING SMALL AMOUNT OF CLOUDY YELLOW URINE VIA GRAVITY. PATIENT NOTED WITH RIGHT FLANK ACCORDION DRAIN X1, WITH SANGUINEOUS OUTPUT. ALSO NOTED WITH LEFT FLANK ACCORDION DRAIN X2, X1 WITH SEROUS OUTPUT, X1 WITH SEROSANGUINEOUS OUTPUT. ABDOMINAL WOUND DRESSING CLEAN, DRY, AND INTACT AT THIS TIME. WILL CONTINUE TO CLOSELY MONITOR
[2020-05-23] MEDS: COLISTIMETHATE SODIUM 75 MG in IV NS 0.9% 50 ML IV SCH (20:10)
[2020-05-23] MEDS: AMIKACIN 450 MG in IV D5W 100 ML IV PRN (22:11)
--- NOTE | 2020-05-23 23:00 | NUR ---
MANAGER INTERN NOTES AMIKACIN ADMINISTERED, PATIENT S/P HD TREATMENT.
[2020-05-24] VITALS (95 sets, daily range): BP systolic 78–142; BP diastolic 33–93
[2020-05-24] MEDS: METOCLOPRAMIDE HCL 10 MG/2 ML VIAL IV SCH ×4 (00:26→17:31)
[2020-05-24] MEDS: BLOOD SUGAR DIAGNOSTIC 1 EACH STRIP IN SCH ×5 (00:26→23:47)
[2020-05-24] MEDS: INSULIN REGULAR, HUMAN 100 UNIT/ML 3 ML VIAL SQ PRN ×3 (00:29→23:50)
[2020-05-24] MEDS: IPRATROPIUM NEB FS 0.5 MG/2.5 ML AMPUL.NEB NEB SCH ×4 (00:53→19:42)
--- NOTE | 2020-05-24 02:30 | NUR ---
PANTRY COOK NOTES MORPHINE 1 MG ADMINISTERED PRIOR TO BED BATH AND ABDOMINAL WOUND DRESSING CHANGE.
[2020-05-24] MEDS: MORPHINE SULFATE INJ 2 MG/ML DISP.SYRIN IM PRN (02:34)
[2020-05-24 04:13] LABS: BASOPHILS # (AUTO) 0.1 /CMM (0.0-0.2); BASOPHILS % (AUTO) 0.4 % (0.0-2.0); EOSINOPHILS % (AUTO) 0.3 % (0.0-6.0); HEMATOCRIT 22 % (33-45); HEMOGLOBIN 8.3 g/dL (11.5-14.8); LYMPHOCYTES # (AUTO) 0.4 /CMM (0.8-4.8); LYMPHOCYTES % (AUTO) 1.3 % (20.0-44.0); MEAN CORPUSCULAR HGB CONC 38 g/dl (31.0-36.0); MEAN CORPUSCULAR VOLUME 103 fL (82-100); MONOCYTES # (AUTO) 0.3 /CMM (0.1-1.30); MONOCYTES % (AUTO) 0.9 % (2.0-12.0); NEUTROPHILS # (AUTO) 30.6 /CMM (1.8-8.9); NEUTROPHILS % (AUTO) 97.1 % (43.0-81.0); PLATELET COUNT (AUTO) 103 /CMM (150-450); RED BLOOD CELL COUNT(AUTO) 2.12 MIL/uL (4.0-5.2)
[2020-05-24 04:34] LABS: WHITE BLOOD COUNT (AUTO) 31.5 K/uL (4.3-11.0)
[2020-05-24 05:01] LABS: CALCIUM, SERUM 10.8 mg/dL (8.5-10.1); CARBON DIOXIDE 21 mmol/L (21-32); CHLORIDE 93 mmol/L (98-107); CREATININE 1.8 mg/dL (0.6-1.3); GLUCOSE 191 mg/dL (74-106); PHOSPHORUS 2.7 mg/dL (2.5-4.9); POTASSIUM 3.8 mmol/L (3.5-5.1); SODIUM SERUM 124 mmol/L (136-145)
[2020-05-24 05:10] LABS: BAND % (MANUAL) 6 % (0.0-5.0); LYMPHOCYTES % (MANUAL) 1 % (16-48); MONOCYTES % (MANUAL) 1 % (0-11.0); NEUTROPHILS % (MANUAL) 92 (42-76)
[2020-05-24 05:15] LABS: UREA NITROGEN, BLOOD 82 mg/dL (7-18)
--- NOTE | 2020-05-24 06:00 | NUR ---
BUTTON MAKER AND INSTALLER NOTES - ACCORDION DRAIN OUTPUT RIGHT- 25ML SANGUINEOUS LEFT #1 - 10ML SEROUS LEFT #2 - 10ML SEROSANGUINEOUS
[2020-05-24] MEDS: METRONIDAZOLE 500MG/ NS 100ML 500 MG in PREMIX 1 EA IV SCH ×3 (06:01→21:41)
[2020-05-24] MEDS: ERYTHROMYCIN ETHYLSUCCINATE 200 MG/5 ML SUSPENSION GT SCH ×3 (08:10→15:26)
[2020-05-24] MEDS: GLYCOPYRROLATE 1 MG TABLET GT SCH ×3 (08:10→15:26)
[2020-05-24] MEDS: CALCIUM POLYCARBOPHIL 625 MG TABLET GT SCH ×2 (08:10→15:26)
[2020-05-24] MEDS: LACTULOSE 10 G/15 ML UDC (PYXIS) GT SCH ×2 (08:10→15:26)
[2020-05-24] MEDS: CITALOPRAM HYDROBROMIDE 10 MG TABLET GT SCH (08:10)
[2020-05-24] MEDS: MULTIVITAMINS,THERAGRAN 1 UDTAB TABLET GT SCH (08:11)
[2020-05-24] MEDS: ASCORBIC ACID 500 MG TABLET GT SCH (08:11)
--- NOTE | 2020-05-24 08:25 | NUR ---
FOR XRAY SMALL BOWEL FT WITH FLOURO, PT STILL UNSTABLE DNR PER RN. ICU NURSE WILL VERIFY ORDER WITH ORDERING MD, AND UPDATE ABOUT CURRENT PATIENT CONDITION. DR DUDLEY RADIOLOGIST AWARE
[2020-05-24] MEDS: HYDROCORTISONE SOD SUCCINATE 100 MG/2 ML VIAL IV SCH ×2 (09:15→17:31)
[2020-05-24] MEDS: MUPIROCIN OINT 2% 22 GM TUBE SCH (09:15)
[2020-05-24] MEDS: PANTOPRAZOLE 40 MG VIAL IV SCH (09:15)
[2020-05-24] MEDS: HYDROGEL DRESSING 90 GM TUBE TP SCH (09:15)
[2020-05-24] MEDS: CLOTRIMAZOLE/BETAMETASONE DIPROPIONATE 15 GM TUBE TP SCH ×2 (09:16→17:31)
[2020-05-24] MEDS: LEVOTHYROXINE INJ 100 MCG VIAL IV SCH (09:16)
[2020-05-24] MEDS: THERAHONEY GEL 1.5 OZ TUBE TP SCH (09:16)
[2020-05-24] MEDS: CLOTRIMAZOLE 1% 15 GM TUBE TP SCH ×2 (09:16→21:43)
[2020-05-24] MEDS ORDERED: TPN BAG #41 IV PRN ×2 (10:00)
[2020-05-24] MEDS ORDERED: TPN BAG #42 IV PRN ×4 (10:00)
--- NOTE | 2020-05-24 11:16 | NUR ---
DIALYSIS STARTED AT 0945, ALL MEDS HELD TILL AFTER DIALYSIS
[2020-05-24] MEDS: MICAFUNGIN SODIUM 100 MG in IV NS 0.9% 100 ML IV SCH (12:06)
--- NOTE | 2020-05-24 14:58 | NUR ---
PHARMACY NOTIFIED OF VANCO TROUGH OF 16 AND AMIKACIN TROUGH OF 7.7. OK TO GIVE BOTH WHEN AVAILABLE FROM PHARMACY
[2020-05-24] MEDS: AMIKACIN 450 MG in IV D5W 100 ML IV PRN (15:25)
[2020-05-24] MEDS: IV NS 0.9% 250 ML IV PRN (16:11)
[2020-05-24] MEDS: VANCOMYCIN 500 MG in IV D5W 100 ML IV PRN (16:11)
[2020-05-24] MEDS: NOREPINEPHRINE 8 MG in IV D5W 250 ML IV PRN (16:11)
--- NOTE | 2020-05-24 19:30 | NUR ---
END OF SHIFT NOTE: PT HAD DIALYSIS TODAY, 2L OFF. NO MEASURABLE DRAINAGE FROM ALL 3 DRAINS. KEMAL HEATING AND AIR CONDITIONING MECHANIC NOTIFIED THAT 4 HEMOVAC DOES NOT HOLD SUCTION. PT WAS TOO UNSTABLE FOR SBS TODAY, KEMAL NOTIFIED. LEVOPHED INFUSING PER MD ORDERS, CURRENTLY INFUSING AT 0.06MCG/KG/MIN. AT 1749 [facility] CALLED RN TO INFORM THAT THE AMIKACIN TROUGH RESULT WAS 10.0. IN HOUSE LAB NOTIFIED RN EARLIER AND NOTED IN COMPUTER THAT THE TROUGH WAS 7.7. PHARMACY NOTIFIED OF BOTH RESULTS. AMIKACIN WAS GIVEN TO PATIENT AFTER THE 7.7 RESULT. 150ML OUT OF NGT SUCTION THIS SHIFT. PT CHECKED ON HOURLY AND PRN BY NURSING STAFF.
[2020-05-24] MEDS: COLISTIMETHATE SODIUM 75 MG in IV NS 0.9% 50 ML IV SCH (20:23)
--- NOTE | 2020-05-24 21:00 | NUR ---
LOOM OPERATOR APPRENTICE NOTES RECEIVED CALL FROM PILAR SOMMER. NEW ORDER OBTAINED FOR CT ABDOMEN WITH NGT CONTRAST WITH POSSIBLE CT GUIDED ASPIRATION OF INTRAABDOMINAL FLUID COLLECTION DUE TO RIGHT ABDOMINAL DRAINAGE CATHETER MALFUNCTION/POSSIBLE LEAK, TO BE DONE TOMORROW MORNING 05/25/2020
[2020-05-25] VITALS (94 sets, daily range): BP systolic 83–147; BP diastolic 21–95
[2020-05-25] MEDS: IPRATROPIUM NEB FS 0.5 MG/2.5 ML AMPUL.NEB NEB SCH ×4 (01:10→19:58)
--- NOTE | 2020-05-25 01:19 | NUR ---
JUICE WEIGHER NOTES - TPN TPN BAG # 41 NEXT TO BE ADMINISTERED, BUT WAS DC'd ON THE EMAR, ONLY BAG #41 AVAILABLE. CALLED AND SPOKE TO ONCALL PHARMACIST TOMMIE. PER TOMMIE, SINCE BAG #42 NOT AVAILABLE, "GO AHEAD AND ADMINISTER THE BAG THAT YOU HAVE. I WILL PUT A NOTE ON MY END AND HAVE YOUR PHARMACY DELIVER BAG 42 IN THE MORNING." EXPLAINED SITUATION TO CHARGE NURSE CLYDE. BAG #41 ADMINISTERED ORDERED, WILL MONITOR CLOSELY
[2020-05-25] MEDS: MORPHINE SULFATE INJ 2 MG/ML DISP.SYRIN IM PRN (03:11)
--- NOTE | 2020-05-25 04:00 | NUR ---
INTERNATIONAL EXCHANGE COORDINATOR NOTES FULL BED BATH RENDERED, ABDOMINAL WOUND - WOUND CARE RENDERED, PATIENT TOLERATED WELL. PATIENT WAS GIVEN PAIN MEDICATION PRIOR TO DRESSING CHANGE
[2020-05-25 05:09] LABS: BASOPHILS # (AUTO) 0.1 /CMM (0.0-0.2); BASOPHILS % (AUTO) 0.3 % (0.0-2.0); EOSINOPHILS % (AUTO) 0.5 % (0.0-6.0); HEMATOCRIT 23 % (33-45); HEMOGLOBIN 7.1 g/dL (11.5-14.8); LYMPHOCYTES # (AUTO) 0.8 /CMM (0.8-4.8); LYMPHOCYTES % (AUTO) 2.2 % (20.0-44.0); MEAN CORPUSCULAR HGB CONC 31 g/dl (31.0-36.0); MEAN CORPUSCULAR VOLUME 103 fL (82-100); MONOCYTES # (AUTO) 4.8 /CMM (0.1-1.30); MONOCYTES % (AUTO) 13.1 % (2.0-12.0); NEUTROPHILS # (AUTO) 30.8 /CMM (1.8-8.9); NEUTROPHILS % (AUTO) 83.9 % (43.0-81.0); PLATELET COUNT (AUTO) 54 /CMM (150-450); RED BLOOD CELL COUNT(AUTO) 2.23 MIL/uL (4.0-5.2)
[2020-05-25 05:12] LABS: WHITE BLOOD COUNT (AUTO) 36.8 K/uL (4.3-11.0)
[2020-05-25 05:34] LABS: ALANINE AMINOTRANSFERASE 8 U/L (12-78); ALBUMIN 1.5 g/dL (3.4-5.0); ALKALINE PHOSPHATASE 248 U/L (46-116); ASPARTATE AMINOTRANSFERASE 16 U/L (15-37); BILIRUBIN,TOTAL 0.9 mg/dL (0.2-1.0); CALCIUM, SERUM 10.7 mg/dL (8.5-10.1); CARBON DIOXIDE 23 mmol/L (21-32); CHLORIDE 100 mmol/L (98-107); CREATININE 1.6 mg/dL (0.6-1.3); GLUCOSE 140 mg/dL (74-106); MAGNESIUM 1.7 mg/dL (1.8-2.4); PHOSPHORUS 2.3 mg/dL (2.5-4.9); SODIUM SERUM 134 mmol/L (136-145); TOTAL PROTEIN, SERUM 4.9 g/dL (6.4-8.2); UREA NITROGEN, BLOOD 66 mg/dL (7-18)
[2020-05-25 05:35] LABS: POTASSIUM 2.8 mmol/L (3.5-5.1)
[2020-05-25 06:04] LABS: BAND % (MANUAL) 13 % (0.0-5.0); LYMPHOCYTES % (MANUAL) 1 % (16-48)
[2020-05-25 06:05] LABS: MONOCYTES % (MANUAL) 5 % (0-11.0); NEUTROPHILS % (MANUAL) 81 (42-76)
[2020-05-25] MEDS: METRONIDAZOLE 500MG/ NS 100ML 500 MG in PREMIX 1 EA IV SCH ×3 (06:08→21:08)
[2020-05-25] MEDS: METOCLOPRAMIDE HCL 10 MG/2 ML VIAL IV SCH ×5 (06:22→23:37)
[2020-05-25] MEDS: BLOOD SUGAR DIAGNOSTIC 1 EACH STRIP IN SCH ×4 (06:23→23:37)
[2020-05-25] MEDS: INSULIN REGULAR, HUMAN 100 UNIT/ML 3 ML VIAL SQ PRN ×4 (06:24→23:39)
--- NOTE | 2020-05-25 07:05 | NUR ---
FINANCIAL REPORTING CONSULTANT NOTES RECEIVED PATIENT ON BED, OPENS EYES , DOES NOT FOLLOW COMMAND, TRACH /VENT DEPENDENT, TOLERATING CURRENT VENT SETTING WELL, O2 SAT 100%, AT THIS TIME, ON TELE SR HR IN 80'S , , LEFT NGT ATTACHED TO LOW INTERMITTENT SUCTION DRAINING , FC DRAINING VIA GRAVITY WITH CLOUDY YELLOW NOTED WITH SEDIMENTS , R IJ HD CATH CLEAN DRY AND INTACT , R UA PICC LINE WITH LEVOPHED @ 0.04MCG/KG/MIN , TPN @ 75ML/HR , NS TKO INFUSING WELL , RIGHT LATERAL ACCORDION DRAIN - DRAINING WITH SEROSANGUINEOUS OUTPUT , LEFT LATERAL ACCORDION DRAIN X2 DRAINING WITH SEROUS AND SEROSANGUINEOUS OUTPUT , ABD DRESSING CLEAN DRY AND INTACT , WILL CONTINUE TO MONITOR .
[2020-05-25] MEDS: Magnesium 1GM/D5W 100ML PREMIX 100 ML IV SCH ×2 (07:48→08:54)
[2020-05-25] MEDS: POTASSIUM CL. PREMIX PERIPHER. 50 ML IV SCH ×6 (07:50→14:03)
[2020-05-25] MEDS: LEVOTHYROXINE INJ 100 MCG VIAL IV SCH (07:50)
[2020-05-25] MEDS ORDERED: POTASSIUM PHOSPHATE MM 15 MMOL in IV NS 0.9% 250 ML IV SCH (08:30)
[2020-05-25] MEDS: LACTULOSE 10 G/15 ML UDC (PYXIS) GT SCH ×2 (08:43→16:29)
[2020-05-25] MEDS: CITALOPRAM HYDROBROMIDE 10 MG TABLET GT SCH (08:43)
[2020-05-25] MEDS: GLYCOPYRROLATE 1 MG TABLET GT SCH ×3 (08:44→16:30)
[2020-05-25] MEDS: MULTIVITAMINS,THERAGRAN 1 UDTAB TABLET GT SCH (08:44)
[2020-05-25] MEDS: CALCIUM POLYCARBOPHIL 625 MG TABLET GT SCH ×2 (08:44→16:29)
[2020-05-25] MEDS: ERYTHROMYCIN ETHYLSUCCINATE 200 MG/5 ML SUSPENSION GT SCH ×3 (08:44→16:29)
[2020-05-25] MEDS: ASCORBIC ACID 500 MG TABLET GT SCH (08:44)
[2020-05-25] MEDS: HYDROCORTISONE SOD SUCCINATE 100 MG/2 ML VIAL IV SCH ×2 (08:47→17:05)
[2020-05-25] MEDS: PANTOPRAZOLE 40 MG VIAL IV SCH (08:47)
[2020-05-25] MEDS: Z GUARD REMEDY 2 OZ OINT TP PRN (08:47)
[2020-05-25] MEDS: CLOTRIMAZOLE 1% 15 GM TUBE TP SCH ×2 (08:48→21:14)
[2020-05-25] MEDS: HYDROGEL DRESSING 90 GM TUBE TP SCH (08:48)
[2020-05-25] MEDS: THERAHONEY GEL 1.5 OZ TUBE TP SCH (08:49)
[2020-05-25] MEDS: CLOTRIMAZOLE/BETAMETASONE DIPROPIONATE 15 GM TUBE TP SCH ×2 (08:51→16:31)
[2020-05-25] MEDS ORDERED: TPN BAG #43 IV PRN ×2 (10:00)
[2020-05-25] MEDS: MICAFUNGIN SODIUM 100 MG in IV NS 0.9% 100 ML IV SCH (11:50)
--- NOTE | 2020-05-25 14:00 | NUR ---
RN NOTES PT TAKEN TO CT AND BACK FROM CT , VSS STABLE, CONTINUE TO MONITOR .
[2020-05-25] MEDS: FAT EMULSION 20% 500 ML in PREMIX 1 EA IV SCH (14:14)
[2020-05-25] MEDS: NOREPINEPHRINE 8 MG in IV D5W 250 ML IV PRN (15:11)
[2020-05-25] MEDS: EPOETIN ALFA (4000 UNIT) 4,000 UNIT/ML VIAL SQ SCH (15:34)
--- NOTE | 2020-05-25 16:00 | NUR ---
RN NOTES T=93.3 RECTALLY, PT PLACED ON BEAR HUGGER , CONTINUE TO MONITOR .
--- NOTE | 2020-05-25 17:00 | NUR ---
RN NOTES PT IS STABLE TO GO FOR SBFT PER CONNER AUDIOVISUAL PRODUCTION SPECIALIST ORDER.
[2020-05-25] MEDS: VANCOMYCIN 500 MG in IV D5W 100 ML IV PRN (17:16)
--- NOTE | 2020-05-25 18:00 | NUR ---
RN NOTES TRACH CARE DONE, PT ON LEVO AT .08 MCG/KG/MIN ,TPN AT 75CC/HR AND LIPID AT 21 CC/HR RUNNING VIA L UPPER ARM PICC LINE, PT RECEIVED HD ON THIS SHIFT, TOLERATED WELL, SR UP x3, CALL LIGHT WITHIN EASY REACH, WILL ENDOSE TO COB SAWYER NURSE FOR CONTINUITY OF CARE.
--- NOTE | 2020-05-25 20:00 | NUR ---
Received patient with eyes open but not following commands.Chronic vent trach patient and tolerating vent settings well.DNR status.SR per monitor.With Levophed gtt infusing for BP support and will titrate accordingly infusing via CHRISTINA PICC Line together with TPN,LIPIDS and NS at TKO. PICC Line sit intact.L NGT to LIS.Abdominal incision with dressing intact.All 3 abdominal drains intact. Both arms and body weeping.Kept clean and dry.FC to gravity with scanty output.Turned and repositioned.No acute distress noted.
--- NOTE | 2020-05-25 20:05 | NUR ---
RT NOTE Pt rec'd trached on [facility] vent on AC mode settings as charted. trach is patent and secured. No resp distress or sob noted. preformed TILLER MAN. Alarms are set and audible. Ambu bag bedside. Vent plugged into red outlet. Will continue to monitor closely. Addendum: 05/25/20 at 2006 by MESERET ESPINOZA RT Amended: Links added.
[2020-05-25] MEDS: COLISTIMETHATE SODIUM 75 MG in IV NS 0.9% 50 ML IV SCH (20:06)
--- NOTE | 2020-05-25 22:12 | NUR ---
Called lab and follow up with amikacin lab result.Spoke to Shon she said specimen not received yet.
--- NOTE | 2020-05-25 22:35 | NUR ---
Johnathan from lab called that specimen for amikacin was sent out at 1800 and only machine operator picker by lab [facility] at 2200.
[2020-05-26] VITALS (54 sets, daily range): BP systolic 67–162; BP diastolic 26–83
[2020-05-26] MEDS: IPRATROPIUM NEB FS 0.5 MG/2.5 ML AMPUL.NEB NEB SCH ×4 (00:52→19:51)
[2020-05-26] MEDS: AMIKACIN 450 MG in IV D5W 100 ML IV PRN (00:59)
[2020-05-26] MEDS: IV NS 0.9% 250 ML IV PRN (01:07)
[2020-05-26 04:50] LABS: BASOPHILS # (AUTO) 0.1 /CMM (0.0-0.2); BASOPHILS % (AUTO) 0.5 % (0.0-2.0); HEMATOCRIT 21 % (33-45); HEMOGLOBIN 7.6 g/dL (11.5-14.8); LYMPHOCYTES # (AUTO) 4.8 /CMM (0.8-4.8); LYMPHOCYTES % (AUTO) 21.9 % (20.0-44.0); MEAN CORPUSCULAR HGB CONC 36 g/dl (31.0-36.0); MEAN CORPUSCULAR VOLUME 102 fL (82-100); MONOCYTES # (AUTO) 2.3 /CMM (0.1-1.30); MONOCYTES % (AUTO) 10.2 % (2.0-12.0); NEUTROPHILS # (AUTO) 14.7 /CMM (1.8-8.9); NEUTROPHILS % (AUTO) 66.4 % (43.0-81.0); WHITE BLOOD COUNT (AUTO) 22.1 K/uL (4.3-11.0)
[2020-05-26] MEDS: METRONIDAZOLE 500MG/ NS 100ML 500 MG in PREMIX 1 EA IV SCH ×3 (05:00→21:21)
[2020-05-26 05:09] LABS: PLATELET COUNT (AUTO) 31 /CMM (150-450)
[2020-05-26] MEDS: BLOOD SUGAR DIAGNOSTIC 1 EACH STRIP IN SCH ×4 (05:36→23:41)
[2020-05-26] MEDS: METOCLOPRAMIDE HCL 10 MG/2 ML VIAL IV SCH ×4 (05:37→23:47)
[2020-05-26 05:48] LABS: BAND % (MANUAL) 9 % (0.0-5.0); LYMPHOCYTES % (MANUAL) 10 % (16-48); MONOCYTES % (MANUAL) 6 % (0-11.0); NEUTROPHILS % (MANUAL) 75 (42-76)
[2020-05-26 06:09] LABS: CALCIUM, SERUM 10.8 mg/dL (8.5-10.1); CARBON DIOXIDE 21 mmol/L (21-32); CHLORIDE 99 mmol/L (98-107); CREATININE 1.4 mg/dL (0.6-1.3); GLUCOSE 147 mg/dL (74-106); MAGNESIUM 2.1 mg/dL (1.8-2.4); PHOSPHORUS 2.5 mg/dL (2.5-4.9); POTASSIUM 3.6 mmol/L (3.5-5.1); SODIUM SERUM 132 mmol/L (136-145); UREA NITROGEN, BLOOD 62 mg/dL (7-18)
--- NOTE | 2020-05-26 06:25 | NUR ---
Lab called regarding patient critical lab results Platelet 31 and COVID resulted indeterminate message sent to [facility] still waiting for orders will endorse to day shift for anthony.Patient resting in no acute distress.VSS.SR.All iv's infusing well.Turned and repositioned.All due meds administered.All needs met.
--- NOTE | 2020-05-26 07:20 | NUR ---
RN OPENING NOTE: Received patient in bed and awake. Patient able to open eyes but does not track. On Mechanical Ventilation with prescribed settings and tolerating well. NO SOB and not in resp. distress. Isolation precautions in place for different organisms found on patient's wounds, sputum, urine and nares. Tele monitor showing sinus rhythm in the 90s noted. No pain noted on patient. NGT on L nare connected to intermittent suction with greenish output noted. Connolly catheter in place and draining yellow urine. Bilateral abdominal drains present with scant serosanguineous drainage noted. IV sites clean, dry, patent and intact. TPN, Levophed @ 0.7mcg/kg/min. NS @ 10mls/hr infusions being tolerated well. Call light in reach. Bed locked, low and at semi-moody's position. Side rails up x3. Safety ensured and observed. Will continue to monitor.
[2020-05-26] MEDS: LEVOTHYROXINE INJ 100 MCG VIAL IV SCH (08:28)
[2020-05-26] MEDS: NOREPINEPHRINE 8 MG in IV D5W 250 ML IV PRN ×3 (09:03→22:04)
[2020-05-26] MEDS: ERYTHROMYCIN ETHYLSUCCINATE 200 MG/5 ML SUSPENSION GT SCH ×3 (09:36→17:28)
[2020-05-26] MEDS: GLYCOPYRROLATE 1 MG TABLET GT SCH ×3 (09:37→17:29)
[2020-05-26] MEDS: PANTOPRAZOLE 40 MG VIAL IV SCH (09:37)
[2020-05-26] MEDS: LACTULOSE 10 G/15 ML UDC (PYXIS) GT SCH ×2 (09:37→17:28)
[2020-05-26] MEDS: CALCIUM POLYCARBOPHIL 625 MG TABLET GT SCH ×2 (09:37→17:29)
[2020-05-26] MEDS: MULTIVITAMINS,THERAGRAN 1 UDTAB TABLET GT SCH (09:37)
[2020-05-26] MEDS: HYDROCORTISONE SOD SUCCINATE 100 MG/2 ML VIAL IV SCH ×2 (09:37→17:29)
[2020-05-26] MEDS: ASCORBIC ACID 500 MG TABLET GT SCH (09:37)
[2020-05-26] MEDS: CITALOPRAM HYDROBROMIDE 10 MG TABLET GT SCH (09:37)
[2020-05-26] MEDS: CLOTRIMAZOLE 1% 15 GM TUBE TP SCH ×2 (09:38→21:36)
[2020-05-26] MEDS: HYDROGEL DRESSING 90 GM TUBE TP SCH (09:38)
[2020-05-26] MEDS: CLOTRIMAZOLE/BETAMETASONE DIPROPIONATE 15 GM TUBE TP SCH ×2 (09:38→17:29)
[2020-05-26] MEDS: THERAHONEY GEL 1.5 OZ TUBE TP SCH (09:38)
--- NOTE | 2020-05-26 10:22 | NUR ---
KB Love will check with ordering physician to approve to proceed with Small Bowel Study AND inject Contrast through NG-Tube. Please call Radioly at ext [phone] when ready.
[2020-05-26] MEDS: MICAFUNGIN SODIUM 100 MG in IV NS 0.9% 100 ML IV SCH (11:22)
[2020-05-26] MEDS ORDERED: TPN BAG #44 IV PRN ×4 (12:00)
[2020-05-26] MEDS ORDERED: TPN BAG #45 IV PRN ×2 (12:00)
--- NOTE | 2020-05-26 12:14 | NUR ---
Per RN Ivan, pt is not stable for exam. States that vitals are critical. Please call Radiology ext - [phone] when patient is stable for exam
--- NOTE | 2020-05-26 13:00 | NUR ---
rn note: Blood sugar recorded @ 111. Device currently not transmitting results. No insulin given per scale
--- NOTE | 2020-05-26 16:00 | NUR ---
RN NOTE: Spoke to Dr. Celaya about patient's order of XR small bowel follow through currently active and if DrRaiza still wants to do procedure. Dr. Celaya given update about patient's current condition and informed nurse to hold for now and to do the procedure when patient becomes more stable. Procedure is deemed necessary per Dr. Celaya for the following reasons: 1. to check if the site is still leaking 2. to check if the dye will reach the colon to know if starting a Gtube feeding would be feasible/helpful for patient's condition. Informed about patient not having a bowel movement for the past couple of days, acknowledged information.
[2020-05-26] MEDS: CARBOXYMETHYLCELLULOSE SODIUM 0.4 ML DROPERETTE EACHEYE SCH ×2 (16:37→17:28)
--- NOTE | 2020-05-26 18:00 | NUR ---
rn note: Blood sugar recorded @ 82. Device currently not transmitting results. No insulin given per scale
--- NOTE | 2020-05-26 18:10 | NUR ---
rn note: PILAR Saba made rounds and saw patient. New order for Blood Culture on permacath noted and carried out. specimen to be collected by Dialysis nurse.
--- NOTE | 2020-05-26 18:22 | NUR ---
RN CLOSING NOTE: No acute changes noted on shift. Patient remains in bed and awake, able to open eyes but does not track. Still on Mechanical Ventilation with prescribed settings and tolerating well. NO SOB and not in resp. distress. Isolation precautions in place for different organisms found on patient's wounds, sputum, urine and nares. Tele monitor showing sinus tachycardia in the 100s noted. No pain noted on patient. NGT on L nare connected to intermittent suction. Connolly catheter in place and draining yellow urine. Bilateral abdominal drains present with scant serosanguineous drainage noted. IV sites clean, dry, patent and intact. TPN, Levophed @ 0.2mcg/kg/min. NS @ 10mls/hr infusions being tolerated well. Call light in reach. Bed locked, low and at semi-moody's position. Side rails up x3. Safety ensured and observed. Due medications given. Wound treatment given. Will endorse to oncoming shift for EVELYN.
[2020-05-26] MEDS: ALBUMIN 25% 25 GM in PREMIX 1 EA IV PRN (18:30)
--- NOTE | 2020-05-26 19:10 | NUR ---
rn note: Endorsed to Stas Rubi RN. Scheduled TPN dose f/u with pharmacy and still to be delivered. Oncoming RN aware
--- NOTE | 2020-05-26 19:20 | NUR ---
RN OPENING NOTES RECEIVED PT IN BED IN SEMI ROY'S POSITION. PT IS OBTUNDED BUT PHYSICALLY RESPONSIVE TO VERBAL AND TACTILE STIMULI. PT CURRENTLY UNDERGOING HEMODIALYSIS WITH UF GOAL OF 1.7. VITAL SIGNS CURRENTLY STABLE. PT CURRENTLY ON LEVO VIA RIGHT UPPER ARM PICC LINE @0.2MCG/KG/MIN. CURRENTLY WAITING FOR TPN TO BE DELIVERED BY PHARMACY. FOLLOWED UP WITH MICHELLE FROM PHARMACY WHO STATES THAT IT IS STILL ON THE WAY. PT WITH NGT VIA LEFT NARE CONNECTED TO LOW INTERMITTENT SUCTION WITH CLEAR LOMAS COLORED DRAININAGE NOTED. TOLERATING CURRENT VENT SETTINGS. SUCTIONED PT VIA TRACH WITH THICK BROWN COLORED SPUTUM. >5ML OF URINE OUTPUT NOTED VIA MATSON CATHETER WHICH IS PATENT AND IN PLACE. CALL LIGHT WITHIN REACH, SAFETY MEASURES IN PLACE, WILL MONITOR PATIENT.
--- NOTE | 2020-05-26 19:52 | NUR ---
PT RCVD ON TRACH SHILEY 6 ON VENT WITH NOTED SETTINGS. PT IS OBTUNDED, RESPONDS TO TACTILE STIMULI. BREATHING TX GIVEN PER MD'S ORDER. NO ADVERSE REACTION NOTED AT THIS TIME. VENT PLUGGED INTO RED OUTLET. VENTS ALARMS SET AND AUDIBLE. WILL CONTINUE TO MONITOR THE PT T/O THE SHIFT.
[2020-05-26] MEDS: COLISTIMETHATE SODIUM 75 MG in IV NS 0.9% 50 ML IV SCH (20:51)
--- NOTE | 2020-05-26 21:05 | NUR ---
RN NOTE ERROR. ENTERED 2100 VITAL SIGNS SIGNED AT 1999 FOR VITALS LONG FORM.
--- NOTE | 2020-05-26 22:47 | NUR ---
RN NOTE RECEIVED ALERT FOR CRITICAL LAB VALUE: AMIKACIN TROUGH >11. WILL HOLD AKIMACIN DOSE POST HEMODIALYSIS PER PROTOCOL.
[2020-05-26] MEDS: INSULIN REGULAR, HUMAN 100 UNIT/ML 3 ML VIAL SQ PRN (23:47)
[2020-05-27] VITALS (17 sets, daily range): BP systolic 86–131; BP diastolic 38–79
[2020-05-27] MEDS: IPRATROPIUM NEB FS 0.5 MG/2.5 ML AMPUL.NEB NEB SCH ×2 (01:30→07:35)
[2020-05-27 04:41] LABS: BASOPHILS % (AUTO) 0.2 % (0.0-2.0); EOSINOPHILS % (AUTO) 3.9 % (0.0-6.0); HEMATOCRIT 21 % (33-45); LYMPHOCYTES # (AUTO) 0.5 /CMM (0.8-4.8); LYMPHOCYTES % (AUTO) 2.3 % (20.0-44.0); MEAN CORPUSCULAR HGB CONC 31 g/dl (31.0-36.0); MEAN CORPUSCULAR VOLUME 103 fL (82-100); MONOCYTES # (AUTO) 1.1 /CMM (0.1-1.30); MONOCYTES % (AUTO) 5.8 % (2.0-12.0); NEUTROPHILS # (AUTO) 17.3 /CMM (1.8-8.9); NEUTROPHILS % (AUTO) 87.8 % (43.0-81.0); WHITE BLOOD COUNT (AUTO) 19.7 K/uL (4.3-11.0)
[2020-05-27] MEDS: NOREPINEPHRINE 8 MG in IV D5W 250 ML IV PRN (04:50)
[2020-05-27 04:55] LABS: TRIGLYCERIDES 148 mg/dL (30-150)
[2020-05-27 05:01] LABS: CARBON DIOXIDE 22 mmol/L (21-32); CHLORIDE 98 mmol/L (98-107); CREATININE 1.3 mg/dL (0.6-1.3); GLUCOSE 131 mg/dL (74-106); MAGNESIUM 1.9 mg/dL (1.8-2.4); PHOSPHORUS 2.6 mg/dL (2.5-4.9); POTASSIUM 3.5 mmol/L (3.5-5.1); SODIUM SERUM 131 mmol/L (136-145); UREA NITROGEN, BLOOD 54 mg/dL (7-18)
[2020-05-27] MEDS: METRONIDAZOLE 500MG/ NS 100ML 500 MG in PREMIX 1 EA IV SCH (05:04)
[2020-05-27] MEDS: METOCLOPRAMIDE HCL 10 MG/2 ML VIAL IV SCH (05:08)
[2020-05-27] MEDS: BLOOD SUGAR DIAGNOSTIC 1 EACH STRIP IN SCH (05:29)
[2020-05-27] MEDS: INSULIN REGULAR, HUMAN 100 UNIT/ML 3 ML VIAL SQ PRN (05:36)
[2020-05-27 06:05] LABS: HEMOGLOBIN 6.4 g/dL (11.5-14.8); PLATELET COUNT (AUTO) 12 /CMM (150-450)
--- NOTE | 2020-05-27 06:13 | NUR ---
RN NOTE RECEIVED ALERT FOR CRITICAL LOW VALUES FOR HEMOGLOBIN 6.4, HCT 21, AND PLATELET 12. PAGED JEIMY BENTON DNP.
[2020-05-27 06:14] LABS: BAND % (MANUAL) 24 % (0.0-5.0); LYMPHOCYTES % (MANUAL) 4 % (16-48); MONOCYTES % (MANUAL) 2 % (0-11.0); NEUTROPHILS % (MANUAL) 70 (42-76)
--- NOTE | 2020-05-27 06:39 | NUR ---
RN NOTE JEIMY BENTON RETURNED CALL WITH ORDER TO ADMINISTER 1 UNIT OF BLOOD. ORDER NOTED AND CARRIED OUT.
--- NOTE | 2020-05-27 06:52 | NUR ---
RN NOTE CALLED MARIO NUNES (SON) [phone] TO OBTAIN VERBAL CONSENT FOR BLOOD TRANSFUSION. UNABLE TO REACH. VOICEMAIL LEFT. WILL ENDORSE FOR MORNING SHIFT TO FOLLOW UP.
[2020-05-27] MEDS: LEVOTHYROXINE INJ 100 MCG VIAL IV SCH ×2 (07:30→07:46)
--- NOTE | 2020-05-27 07:57 | NUR ---
GLUER AND WEDGER PT DNR STATUS. FOUND ASYSTOLIC, APNEIC, AREFLEXIVE. PRONOUNCED AT [phone]
--- NOTE | 2020-05-27 08:00 | NUR ---
RESERVE OFFICER NOTES CALLED SON DES MARTIN TO INFORM ABOUT PATIENT`S EXPIRATION. CALL WAS NOT ANSWERED. LEFT A VOICE MAIL TO SON FOR CALL BACK.
--- NOTE | 2020-05-27 08:10 | NUR ---
ECHO TECHNICIAN NOTES MED NOT ADMINISTRATED. PATIENT .
--- NOTE | 2020-05-27 08:29 | NUR ---
CHIEF METEOROLOGIST NOTES CALLED [facility], HAD A CONVERSATION WITH TIMOTHY.PATIENT`S INFORMATION GIVEN. OK TO RELEASE THE BODY.
--- NOTE | 2020-05-27 09:55 | NUR ---
GEOMORPHOLOGY TEACHER NOTES BODY TAKEN TO KUMAR BY RN , MACHINE OPERATORS AND SECURITY. CALLED MARIO ([phone]) AND INFORMED HIM ABOUT THE PT`S EXPIRATION. SON AWARE.
== END 2020-05-27 10:42 | disposition expired | DRG 981 ==
LOC: ER 15:48 → TELE 18:24 → ICU 04-24 10:54
PROVIDERS: ADMIT Internal Medicine; ATTEND Hospitalist
PROC: 5A1955Z Respiratory Ventilation, Greater than 96 Consecutive Hours (ICD-10-PCS; 2020-04-19)
PROC: 05HY33Z Insertion of Infusion Device into Upper Vein, Percutaneous Approach (ICD-10-PCS; 2020-04-24)
PROC: 0DNW0ZZ Release Peritoneum, Open Approach (ICD-10-PCS; principal; 2020-04-26)
PROC: 0DQ60ZZ Repair Stomach, Open Approach (ICD-10-PCS; principal; 2020-04-26)
PROC: 0WQF0ZZ Repair Abdominal Wall, Open Approach (ICD-10-PCS; 2020-05-09)
PROC: 5A1D70Z Performance of Urinary Filtration, Intermittent, Less than 6 Hours Per Day (ICD-10-PCS; 2020-05-09)
PROC: 0J980ZZ Drainage of Abdomen Subcutaneous Tissue and Fascia, Open Approach (ICD-10-PCS; 2020-05-09)
PROC: 05HM33Z Insertion of Infusion Device into Right Internal Jugular Vein, Percutaneous Approach (ICD-10-PCS; 2020-05-09)
DX: T80.211A Bloodstream infection due to central venous catheter, initial encounter (principal); A41.02 Sepsis due to Methicillin resistant Staphylococcus aureus; E43 Unspecified severe protein-calorie malnutrition; K65.0 Generalized (acute) peritonitis; N18.6 End stage renal disease; G92 Toxic encephalopathy; K25.5 Chronic or unspecified gastric ulcer with perforation; K65.1 Peritoneal abscess; R65.21 Severe sepsis with septic shock; J15.0 Pneumonia due to Klebsiella pneumoniae; L89.153 Pressure ulcer of sacral region, stage 3; L89.323 Pressure ulcer of left buttock, stage 3; L89.313 Pressure ulcer of right buttock, stage 3; I13.2 Hypertensive heart and chronic kidney disease with heart failure and with stage 5 chronic kidney disease, or end stage renal disease; J96.10 Chronic respiratory failure, unspecified whether with hypoxia or hypercapnia; T81.31XA Disruption of external operation (surgical) wound, not elsewhere classified, initial encounter; D68.59 Other primary thrombophilia; E27.40 Unspecified adrenocortical insufficiency; F11.20 Opioid dependence, uncomplicated; I50.32 Chronic diastolic (congestive) heart failure; J96.11 Chronic respiratory failure with hypoxia; K56.600 Partial intestinal obstruction, unspecified as to cause; K56.7 Ileus, unspecified; N17.9 Acute kidney failure, unspecified; K94.23 Gastrostomy malfunction; N39.0 Urinary tract infection, site not specified; R18.8 Other ascites; Z99.11 Dependence on respirator [ventilator] status; E87.1 Hypo-osmolality and hyponatremia; I82.622 Acute embolism and thrombosis of deep veins of left upper extremity; J44.0 Chronic obstructive pulmonary disease with (acute) lower respiratory infection; J98.11 Atelectasis; E87.5 Hyperkalemia; I50.9 Heart failure, unspecified; Z99.2 Dependence on renal dialysis; K66.0 Peritoneal adhesions (postprocedural) (postinfection); E66.01 Morbid (severe) obesity due to excess calories; D53.9 Nutritional anemia, unspecified; D63.8 Anemia in other chronic diseases classified elsewhere; D69.6 Thrombocytopenia, unspecified; E03.9 Hypothyroidism, unspecified; E16.2 Hypoglycemia, unspecified; E83.39 Other disorders of phosphorus metabolism; E83.52 Hypercalcemia; E87.6 Hypokalemia; F32.9 Major depressive disorder, single episode, unspecified; G20 Parkinson's disease; G89.4 Chronic pain syndrome; F41.9 Anxiety disorder, unspecified; I48.0 Paroxysmal atrial fibrillation; K21.9 Gastro-esophageal reflux disease without esophagitis; K31.84 Gastroparesis; K44.9 Diaphragmatic hernia without obstruction or gangrene; E86.9 Volume depletion, unspecified; N26.1 Atrophy of kidney (terminal); Z66 Do not resuscitate; Y95 Nosocomial condition; R13.10 Dysphagia, unspecified; Z68.37 Body mass index [BMI] 37.0-37.9, adult; E66.9 Obesity, unspecified; Z87.891 Personal history of nicotine dependence; Z87.11 Personal history of peptic ulcer disease; Z79.52 Long term (current) use of systemic steroids; J84.10 Pulmonary fibrosis, unspecified; I71.4 Abdominal aortic aneurysm, without rupture; E83.42 Hypomagnesemia; B96.5 Pseudomonas (aeruginosa) (mallei) (pseudomallei) as the cause of diseases classified elsewhere; Z86.718 Personal history of other venous thrombosis and embolism
CPT/HCPCS: 31720; 36415; 36569; 36600; 71045-TC; 74018; 74160-TC; 74246-TC; 74250-TC; 75989; 75989-TC; 80048-TC; 80053-TC; 80076-TC; 80150; 80202-TC; 82533; 82728-TC; 82803-TC; 82962-TC; 83540-TC; 83605-TC; 83735-TC; 84100-TC; 84439-TC; 84443-TC; 84478-TC; 84484-TC; 85025-TC; 85610-TC; 85730-TC; 86704; 86707; 86850-TC; 86921-TC; 87040-TC; 87070-TC; 87075-TC; 87081-TC; 87086-TC; 87186-TC; 87350; 90935-TC; 93307-TC; 93970-TC; 94002-TC; 94003-TC; 94640; 94640-TC; 94760-TC; 94762-TC; 94799-TC; 99082-TC; A4216; A4217; A4338; A4349; A4623; A6248; A6253; A6403; A6407; A7526; A9563; C1750; C1751; C1769; C9113; G0378; J0278; J0282; J0637; J0690; J0770; J0885; J1100; J1170; J1644; J1720; J1815; J2060; J2185; J2248; J2250; J2270; J2310; J2370; J2405; J2704; J2765; J2930; J3010; J3370; J3475; J3480; J3490; J7030; J7040; J7042; J7050; J7060; J7120; J8597; P9016-BL; P9047; Q0162; Q0163; Q9963; Q9967; U0003-CS